=== PATIENT | female | born 1940 | race Caucasian/White ===

== ENCOUNTER 2023-11-01 15:39 | Inpatient (IN) ==
--- NOTE | 2023-11-01 16:08 | XRay Report ---
XR chest 1V portable HISTORY: 82 years-old Female weakness acute weakness COMPARISON: None TECHNIQUE: AP view of the chest FINDINGS: Cardiac silhouette is enlarged. Mild right hemidiaphragmatic elevation. No pneumothorax, pleural effu dinorah or lobar airspace consolidation. Mild nonspecific interstitial coarsening. IMPRESSION: 1. Cardiomegaly with mild nonspecific interstitial coarsening. 2. No airspace consolidation typical for pneumonia. ACT 112: Negative or not required by law. The above report was generated using voice recognition software. It may contain grammatical, syntax o r spelling errors. Electronically signed by: Zhao Mejia M.D. 11/01/2023 4:07 PM
--- NOTE | 2023-11-01 16:35 | CT Scan Report ---
CT SCAN OF THE BRAIN WITHOUT IV CONTRAST CLINICAL HISTORY: Change in mental status. COMPARISON STUDY: No priors. TECHNIQUE: Unenhanced axial CT scan of the brain is performed from the vertex to the skull base. A do se lowering technique was utilized adhering to the principles of ALARA. CT DOSE: 547.75 mGy.cm FINDINGS: Brain parenchyma: There is age-related involutional change noting moderate subcortical and periventri cular microangiopathic disease. A 5 mm hyperdense focus in the right cerebellar hemisphere likely rep resents a calcification. Hemorrhages considered unlikely. No additional findings are suspicious for h emorrhage. There is no mass effect or evidence of acute territorial ischemia by CT criteria. Berg-whi te matter differentiation is preserved. Left temporal encephalomalacia is consistent with a remote in sult. No extra-axial fluid collection is seen. Ventricles, sulci, cisterns: Prominent secondary to involutional change. Intracranial vasculature: There is atherosclerotic calcification of the cavernous carotid and vertebr al arteries. Calvarium: Unremarkable. Sinuses and mastoids: The visualized paranasal sinuses are clear. The mastoid air cells are well pneu matized. Orbits: The bony orbits are grossly intact. IMPRESSION: 1. A 5 mm hyperdense focus in the right cerebellar hemisphere likely represents a calcification. A ti ny focus of hemorrhage is considered much less likely. Correlate with any prior outside imaging studi es. If no prior studies are available consider a 12 to 24 hour follow-up examination for reassessment . 2. No additional findings are suspicious for hemorrhage. There is no mass effect or evidence of acute territorial ischemia by CT criteria. ACT 112: Negative or not required by law. Electronically signed by: James Bull M.D. 11/01/2023 4:34 PM
[2023-11-01 16:41] LABS: Basophils # (auto) 0.04 K/uL (0.00-0.20); Basophils % (auto) 0.6 %; Eosinophils # (auto) 0.07 K/uL (0.00-0.50); Eosinophils % (auto) 1.1 %; Hematocrit (blood only) 42.9 % (37.0-47.0); Hemoglobin 14.3 g/dl (12.0-16.0); Immature Granulocytes # (auto) 0.04 K/uL (0.01-0.20); Immature Granulocytes % (auto) 0.6 %; Lymphocytes # (auto) 0.87 K/uL (1.20-3.40); Lymphocytes % (auto) 13.5 %; Mean Corpuscular Hemoglobin 33.4 pg (25.0-34.0); Mean Corpuscular Hgb Conc 33.3 g/dL (32.0-36.0); Mean Corpuscular Volume 100.2 fL (80.0-100.0); Mean Platelet Volume 10.2 fL (9.4-12.4); Monocytes # (auto) 0.61 K/uL (0.11-0.59); Monocytes % (auto) 9.5 %; Neutrophils # (auto) 4.82 K/uL (1.40-6.50); Neutrophils % (auto) 74.7 %; Platelet Count 174 K/uL (130-400); RDW Coefficient of Variation 12.2 % (11.5-14.5); RDW Standard Deviation 45.4 fL (36.4-46.3); Red Blood Count 4.28 M/uL (4.20-5.40); White Blood Count 6.45 K/ul (4.8-10.8)
--- NOTE | 2023-11-01 16:49 | Emergency Department Note ---
Impression & Plan Acute confusion, Acute UTI, Hypertension, Abnormal brain CT, Hyponatremia, Hypomagnesemia ED Provider Note NAME: KIKA GOEL AGE: 82 SEX: F : 1940 ARRIVES VIA: Walk-In INFORMANT: [Patient][family] ED PROVIDER(S): [James Leahy MD] CHIEF COMPLAINT: Hypertension HISTORY OF PRESENT ILLNESS: The patient is an 82-year-old female who had her blood pressure medication lowered last week. She had the lisinopril dose reduced. A short time after, the patient began complaining of a bit of a headache and her blood pressure was noticed to be about 150 to 160 systolic. She felt dizzy and nauseated. The family noticed some confusion. There have been no respiratory complaints. No cough or congestion. No vomiting, no diarrhea. She has not had one-sided weakness. She has not noticed fever. No urinary complaints. As per the daughter at bedside, the patient does have a history of UTI and that may be the problem today. PMHx/PSHx/Social Hx: See Below PHYSICAL EXAM: GENERAL: Patient is in no acute distress. HEENT: No acute trauma, normocephalic atraumatic, mucous membranes moist, no nasal congestion. NECK: No stridor, no adenopathy, no meningismus, trachea is midline. LUNGS: Clear to auscultation bilaterally, no wheeze, no rhonchi, breath sounds equal. HEART: Normal rate. No murmurs. Irregular rhythm. ABDOMEN: Soft, nontender, no peritonitis. EXTREMITIES: No cyanosis, full range of motion of all the joints without pain or difficulty. NEUROLOGIC: Awake and alert, no acute motor or sensory deficits, no focal weakness. No speech slur or facial droop. No extremity drift. SKIN: No jaundice, no diaphoresis. DIFFERENTIAL DIAGNOSIS: UTI, intracranial bleeding, stroke, uncontrolled blood pressure, electrolyte imbalance, dehydration, among others. EMERGENCY DEPARTMENT PROCEDURES: MEDICAL DECISION MAKING: There is no leukocytosis or concerning anemia. There is a normal platelet count. Sodium and magnesium were slightly low. There was no renal failure. No concerning liver enzyme elevation. The patient appeared to be in a euthyroid state. ECG shows atrial fibrillation, no obvious ischemia. Cardiac enzyme testing x 1 was not consistent with acute cardiac injury. Urinalysis does show findings of infection. Respiratory bio fire was completely negative. Chest x- ray did not show pneumonia or CHF. Brain CT showed a potential calcification versus small bleed to the cerebellar portion of the brain. No old CT images to use for comparison. On exam, there were no focal neurologic findings. The patient was not febrile. She was mildly hypertensive. Patient received IV ceftriaxone as antibiotic therapy. She was given IV magnesium and IV saline. Patient presents with some confusion. She was found to have a UTI and this is likely the cause for her presentation. Given the patient's age, given the UTI, given the confusion, given the abnormal brain CT, further workup in the hospital was felt warranted. A repeat CT image in 12 to 24 hours was recommended by radiology. I spoke with the patient and case management, the on-call hospitalist was consulted. Prior/Outside records/notes reviewed: None ECG per my interpretation: Indication was weakness. The ECG shows atrial fibrillation with a rate of 99. There is a potential old septal infarct. There is no acute ST elevation, no PVCs. The QTc is 441. Continuous Cardiac Monitoring per my interpretation: An order was placed for continuous cardiac monitoring. The monitor shows a rate of 88 with atrial fibrillation. Imaging/x-ray results per my interpretation: Chest x-ray does not show mediastinal widening, pneumonia or pneumothorax. Chronic Medical/Social conditions affecting care: Advanced age Care/Management discussed with: Case management, the on-call hospitalist. Level of care consideration(s): After review of the information above and other included data: --I believe the patient requires escalation of care to admission DISPOSITION: Admission Past Med/Surg History Medical History Hypertension Atrial fibrillation Social History Smoking Status: Former smoker Hx Alcohol Use: Yes Alcohol type: wine Hx Substance Use: No Preferred Language: Nepalese Communication Ability: Effective Director Of Student Life Required: No Beliefs That Will Affect Care: None Current Living Situation: Family Current Living Situation Comment: Lives with daughter Other Information That Helps Us Care for You: No Feels Safe at Home: Yes Safety Concerns: Feels Safe At This Time Assistive Devices: Cane, Glasses and Hearing Aid - Bilateral Assistive Devices Comment: doesn't wear hearing aids Allergies Allergies Allergy/AdvReac Type Severity Reaction Status Date / Time Sulfa (Sulfonamide Allergy Mild Unknown Verified 11/01/23 23:24 Antibiotics) Penicillins AdvReac Hives Verified 11/01/23 23:21 Home Meds Home Medications Medication Instructions Recorded Confirmed apixaban 5 mg tablet (Eliquis) 5 mg PO BID 11/01/23 11/01/23 conjugated estrogens 0.625 mg 0.625 mg PO DAILY 11/01/23 11/01/23 tablet (Premarin) levothyroxine 75 mcg tablet 75 mcg PO DAILY 11/01/23 11/01/23 lisinopril 20 mg tablet 20 mg PO QAM 11/01/23 11/01/23 metoprolol succinate 100 mg 100 mg PO BID 11/01/23 11/01/23 tablet,extended release 24 hr spironolactone 25 mg tablet 12.5 mg PO DAILY 11/01/23 11/01/23 Results & Data (ED) Vital Signs Vital Signs - 24 hr 11/01/23 15:47 11/01/23 16:11 11/01/23 16:11 Temperature 36.5 C Temperature Source Temporal Artery Scan Pulse Rate 112 H 94 H Pulse Rate [Apical] 94 H Pulse Rate from SpO2 Sensor Pulse Rhythm Regular Regular Pulse Rhythm [Apical] Regular Pulse Strength Normal Respiratory Rate 18 20 20 Respiratory Effort / Characteristics Non-Labored Non-Labored Respiratory Depth Normal Normal Respiratory Pattern Regular Regular Blood Pressure 149/93 H Blood Pressure [Right Arm] 142/88 H Blood Pressure Mean 111 Blood Pressure Mean [Right Arm] 106 Blood Pressure Position Sitting Blood Pressure Position [Right Arm] Sitting Pulse Oximetry 99 97 97 Oxygen Delivery Method Room Air Room Air Room Air Sepsis New/Unexplained Change in Mental Status No Sepsis Action Taken by Nursing No Action Required 11/01/23 16:28 11/01/23 16:28 11/01/23 16:30 Temperature Temperature Source Pulse Rate 88 88 Pulse Rate [Apical] Pulse Rate from SpO2 Sensor 91 H Pulse Rhythm Pulse Rhythm [Apical] Pulse Strength Respiratory Rate 18 Respiratory Effort / Characteristics Respiratory Depth Respiratory Pattern Blood Pressure 148/77 H Blood Pressure [Right Arm] Blood Pressure Mean 93 Blood Pressure Mean [Right Arm] Blood Pressure Position Blood Pressure Position [Right Arm] Pulse Oximetry 98 Oxygen Delivery Method Sepsis New/Unexplained Change in Mental Status Sepsis Action Taken by Nursing 11/01/23 16:30 11/01/23 16:40 11/01/23 16:50 Temperature Temperature Source Pulse Rate 88 92 H 96 H Pulse Rate [Apical] Pulse Rate from SpO2 Sensor 92 H 95 H 92 H Pulse Rhythm Pulse Rhythm [Apical] Pulse Strength Respiratory Rate 20 22 17 Respiratory Effort / Characteristics Respiratory Depth Respiratory Pattern Blood Pressure Blood Pressure [Right Arm] Blood Pressure Mean Blood Pressure Mean [Right Arm] Blood Pressure Position Blood Pressure Position [Right Arm] Pulse Oximetry 97 98 98 Oxygen Delivery Method Sepsis New/Unexplained Change in Mental Status Sepsis Action Taken by Nursing 11/01/23 17:00 11/01/23 17:10 11/01/23 17:20 Temperature Temperature Source Pulse Rate 90 87 99 H Pulse Rate [Apical] Pulse Rate from SpO2 Sensor 100 H 96 H 98 H Pulse Rhythm Pulse Rhythm [Apical] Pulse Strength Respiratory Rate 24 34 H 18 Respiratory Effort / Characteristics Respiratory Depth Respiratory Pattern Blood Pressure Blood Pressure [Right Arm] Blood Pressure Mean Blood Pressure Mean [Right Arm] Blood Pressure Position Blood Pressure Position [Right Arm] Pulse Oximetry 82 L 92 82 L Oxygen Delivery Method Sepsis New/Unexplained Change in Mental Status Sepsis Action Taken by Nursing 11/01/23 17:30 11/01/23 17:40 11/01/23 17:50 Temperature Temperature Source Pulse Rate 87 105 H 99 H Pulse Rate [Apical] Pulse Rate from SpO2 Sensor 87 101 H Pulse Rhythm Pulse Rhythm [Apical] Pulse Strength Respiratory Rate 23 26 H 24 Respiratory Effort / Characteristics Respiratory Depth Respiratory Pattern Blood Pressure Blood Pressure [Right Arm] Blood Pressure Mean Blood Pressure Mean [Right Arm] Blood Pressure Position Blood Pressure Position [Right Arm] Pulse Oximetry 78 L 97 Oxygen Delivery Method Sepsis New/Unexplained Change in Mental Status Sepsis Action Taken by Nursing 11/01/23 18:00 11/01/23 18:10 11/01/23 18:20 Temperature Temperature Source Pulse Rate 101 H 98 H 91 H Pulse Rate [Apical] Pulse Rate from SpO2 Sensor 107 H 103 H 95 H Pulse Rhythm Pulse Rhythm [Apical] Pulse Strength Respiratory Rate 27 H 21 18 Respiratory Effort / Characteristics Respiratory Depth Respiratory Pattern Blood Pressure Blood Pressure [Right Arm] Blood Pressure Mean Blood Pressure Mean [Right Arm] Blood Pressure Position Blood Pressure Position [Right Arm] Pulse Oximetry 99 97 98 Oxygen Delivery Method Sepsis New/Unexplained Change in Mental Status Sepsis Action Taken by Assisted Medications Current Medication List: was personally reviewed by me Laboratory Data Attestation: I reviewed the patient's lab results. 11/01/23 16:05 11/01/23 16:05 Lab Results 11/01/23 11/01/23 Range/Units 16:03 16:05 WBC 6.45 (4.8-10.8) K/ul RBC 4.28 (4.20-5.40) M/uL Hgb 14.3 (12.0-16.0) g/dl Hct 42.9 (37.0-47.0) % MCV 100.2 H (80.0-100.0) fL MCH 33.4 (25.0-34.0) pg MCHC 33.3 (32.0-36.0) g/dL RDW Std Deviation 45.4 (36.4-46.3) fL RDW Coeff of Ethan 12.2 (11.5-14.5) % Plt Count 174 (130-400) K/uL MPV 10.2 (9.4-12.4) fL Immature Gran % (Auto) 0.6 % Neut % (Auto) 74.7 % Lymph % (Auto) 13.5 % Andrew % (Auto) 9.5 % Eos % (Auto) 1.1 % Baso % (Auto) 0.6 % Neut # (Auto) 4.82 (1.40-6.50) K/uL Lymph # (Auto) 0.87 L (1.20-3.40) K/uL Andrew # (Auto) 0.61 H (0.11-0.59) K/uL Eos # (Auto) 0.07 (0.00-0.50) K/uL Baso # (Auto) 0.04 (0.00-0.20) K/uL Immature Gran # (Auto) 0.04 (0.01-0.20) K/uL PT 11.6 (9.0-12.0) Seconds INR 1.1 (0.9-1.1) Sodium 130 L (136-145) mmol/L Potassium 4.8 (3.5-5.1) mmol/L Chloride 97 L (98-107) mmol/L Carbon Dioxide 26 (21-32) mmol/L Anion Gap 7 (3-11) BUN 21 (6-23) mg/dl Creatinine 1.16 (0.6-1.2) mg/dl Est Cr Clr Drug Dosing 37.6 ml/min Est GFR ( Amer) 50.4 ml/min Est GFR (Non-Af Amer) 43.5 ml/min BUN/Creatinine Ratio 18.1 (10-20) Glucose 97 (70-99(Fasting)) mg/dl Calcium 8.9 (8.6-10.3) mg/dl Magnesium 1.6 L (1.7-2.4) mg/dl Total Bilirubin 0.6 (0.2-1.0) mg/dl AST 20 (13-39) U/L ALT 14 (7-52) U/L Alkaline Phosphatase 32 L (34-104) U/L Troponin I High Sens 4.2 (0-14) pg/ml Total Protein 7.7 (6.0-8.3) gm/dl Albumin 4.2 (3.4-5.0) gm/dl Globulin 3.5 (2.5-4.0) gm/dl Albumin/Globulin Ratio 1.2 (0.9-2) TSH 3.548 (0.300-4.500) uIu/ml Urine Color Yellow Urine Appearance Cloudy A (Clear) Urine pH 6.0 (4.5-7.5) Ur Specific Jet 1.019 (1.000-1.030) Urine Protein Negative (Negative) Urine Glucose (UA) Negative (Negative) Urine Ketones Trace H (Negative) Urine Blood Trace H (Negative) Urine Nitrite Positive A (Negative) Urine Bilirubin Negative (Negative) Urine Urobilinogen Negative (Negative) Ur Leukocyte Esterase 1+ H (Negative) Urine WBC (Auto) >50 H (0-5) /hpf Urine RBC (Auto) 3-5 H (0-2) /hpf U Hyaline Cast (Auto) 0-2 (0-2) /lpf U Epithel Cells (Auto) 3-5 H (0-2) /hpf Urine Bacteria (Auto) 4+ H (None Seen) Adenovirus (PCR) Not Detected (NotDetected) B. pertussis DNA (PCR) Not Detected (NotDetected) B.parapertussis DNA PCR Not Detected (NotDetected) C. pneumoniae DNA (PCR) Not Detected (NotDetected) Coronavirus OC43 (PCR) Not Detected (NotDetected) Coronavirus HKU1 (PCR) Not Detected (NotDetected) Coronavirus 229E (PCR) Not Detected (NotDetected) SARS-CoV-2 (PCR) Not Detected (NotDetected) Coronavirus NL63 (PCR) Not Detected (NotDetected) Human Metapneumovir PCR Not Detected (NotDetected) Influenza Type A (PCR) Not Detected (NotDetected) Influenza Type B (PCR) Not Detected (NotDetected) M. pneumoniae (PCR) Not Detected (NotDetected) Parainfluenza 1 (PCR) Not Detected (NotDetected) Parainfluenza 2 (PCR) Not Detected (NotDetected) Parainfluenza 3 (PCR) Not Detected (NotDetected) Parainfluenza 4 (PCR) Not Detected (NotDetected) RSV (PCR) Not Detected (NotDetected) Entero/Rhino (PCR) Not Detected (NotDetected) Administered Medications Acetaminophen (Acetaminophen 325 Mg Tab) 650 mg PO Q6H PRN PRN Reason: Pain or Fever Stop: 12/01/23 23:01 Last Admin: 11/01/23 23:43 Dose: 650 mg Documented By: LYNN Cetirizine HCl (Cetirizine Hcl 10 Mg Tablet) 10 mg PO HS BARBRA Stop: 12/01/23 23:29 Last Admin: 11/01/23 23:43 Dose: 10 mg Documented By: LYNN Metoprolol Succinate (Metoprolol Succ 50mg Ext Rel Tab) 100 mg PO BID BARBRA Stop: 12/01/23 20:59 Last Admin: 11/01/23 22:57 Dose: 100 mg Documented By: LYNN Discontinued Medications Sodium Chloride (Nss) 500 mls @ 999 mls/hr IV .Q31M ONE Stop: 11/01/23 17:13 Last Infusion: 11/01/23 18:04 Dose: Infused Documented By: Admin: 11/01/23 16:53 Dose: 999 mls/hr Documented By: LAYNE Ceftriaxone Sodium (Rocephin) 2,000 mg in 50 mls @ 100 mls/hr IV NOW STA Stop: 11/01/23 17:54 Last Infusion: 11/01/23 19:46 Dose: Infused Documented By: Admin: 11/01/23 18:02 Dose: 100 mls/hr Documented By: LAYNE Magnesium Sulfate/Dextrose (Magnesium Sulfate / D5w) 1 gm in 100 mls @ 100 mls/hr IV NOW STA Stop: 11/01/23 18:24 Last Infusion: 11/01/23 19:46 Dose: Infused Documented By: Admin: 11/01/23 18:27 Dose: 100 mls/hr Documented By: LAYNE Imaging Data Radiologist's Impression: Chest X-Ray 11/01/23 15:54 XR chest 1V portable HISTORY: 82 years-old Female weakness acute weakness COMPARISON: None TECHNIQUE: AP view of the chest FINDINGS: Cardiac silhouette is enlarged. Mild right hemidiaphragmatic elevation. No pneumothorax, pleural effusion or lobar airspace consolidation. Mild nonspecific interstitial coarsening. IMPRESSION: 1. Cardiomegaly with mild nonspecific interstitial coarsening. 2. No airspace consolidation typical for pneumonia. ACT 112: Negative or not required by law. The above report was generated using voice recognition software. It may contain grammatical, syntax or spelling errors. Electronically signed by: Zhao Mejia M.D. 11/01/2023 4:[address] 11/01/23 15:54 CT SCAN OF THE BRAIN WITHOUT IV CONTRAST CLINICAL HISTORY: Change in mental status. COMPARISON STUDY: No priors. TECHNIQUE: Unenhanced axial CT scan of the brain is performed from the vertex to the skull base. A dose lowering technique was utilized adhering to the principles of ALARA. CT DOSE: 547.75 mGy.cm FINDINGS: Brain parenchyma: There is age-related involutional change noting moderate subcortical and periventricular microangiopathic disease. A 5 mm hyperdense focus in the right cerebellar hemisphere likely represents a calcification. Hemorrhages considered unlikely. No additional findings are suspicious for hemorrhage. There is no mass effect or evidence of acute territorial ischemia by CT criteria. Berg-white matter differentiation is preserved. Left temporal encephalomalacia is consistent with a remote insult. No extra-axial fluid collection is seen. Ventricles, sulci, cisterns: Prominent secondary to involutional change. Intracranial vasculature: There is atherosclerotic calcification of the cavernous carotid and vertebral arteries. Calvarium: Unremarkable. Sinuses and mastoids: The visualized paranasal sinuses are clear. The mastoid air cells are well pneumatized. Orbits: The bony orbits are grossly intact. IMPRESSION: 1. A 5 mm hyperdense focus in the right cerebellar hemisphere likely represents a calcification. A tiny focus of hemorrhage is considered much less likely. Correlate with any prior outside imaging studies. If no prior studies are available consider a 12 to 24 hour follow-up examination for reassessment. 2. No additional findings are suspicious for hemorrhage. There is no mass effect or evidence of acute territorial ischemia by CT criteria. ACT 112: Negative or not required by law. Electronically signed by: James Bull M.D. 11/01/2023 4:34 PM Discharge Plan Visit Data Chief Complaint: Hypertension Stated Complaint: CONFUSION, INCREASED BP, INCREASED HR, ACHES ED Provider: James Leahy Discharge Problem: Acute confusion, Acute UTI, Hypertension, Abnormal brain CT, Hyponatremia, Hypomagnesemia Patient Disposition: Admitted As Inpatient Condition: Fair Discharge Instructions Interventions: ED Discharge Assessment Last Done: 11/01/23 20:23 Discharge Problem: Hypertension Qualifiers: Hypertension type: unspecified Qualified Code(s): I10 - Essential (primary) hypertension
[2023-11-01] MEDS: SODIUM CHLORIDE 0.9% 500 ML IV ONE (16:53)
[2023-11-01 17:08] LABS: Albumin Globulin Ratio 1.2 (0.9-2); Albumin Level 4.2 gm/dl (3.4-5.0); BUN Creatinine Ratio 18.1 (10-20); Bilirubin,Total 0.6 mg/dl (0.2-1.0); Calcium 8.9 mg/dl (8.6-10.3); Creatinine Clr Calc Pharmacy 37.6 ml/min; Est GFR (African American) 50.4 ml/min; Est GFR (Non-African American) 43.5 ml/min; Globulin 3.5 gm/dl (2.5-4.0); Magnesium 1.6 mg/dl (1.7-2.4); Potassium 4.8 mmol/L (3.5-5.1); Total Protein 7.7 gm/dl (6.0-8.3)
[2023-11-01 17:08] LABS: Appearance Urine Cloudy (Clear); Bacteria Urine Automated 4+ (None Seen); Bilirubin Urine Negative (Negative); Blood Urine Trace (Negative); Cast Urine Automated 0-2 /lpf (0-2); Color Urine Yellow; Glucose Urine UA Negative (Negative); Ketones Urine Trace (Negative); Leukocyte Esterase Urine 1+ (Negative); Nitrite Urine Positive (Negative); Protein Urine Negative (Negative); Specific Gravity Urine 1.019 (1.000-1.030); Urobilinogen Urine Negative (Negative); WBC Urine Automated >50 /hpf (0-5)
[2023-11-01 17:12] LABS: Troponin I High Sensitivity 4.2 pg/ml (0-14)
[2023-11-01 17:22] LABS: Thyroid Stimulating Hormone 3.548 uIu/ml (0.300-4.500)
[2023-11-01 17:27] LABS: Adenovirus PCR Not Detected (NotDetected); Bordetella parapertussis PCR Not Detected (NotDetected); Bordetella pertussis PCR Not Detected (NotDetected); Chlamydia pneumoniae PCR Not Detected (NotDetected); Coronavirus 229E PCR Not Detected (NotDetected); Coronavirus CoV-2 (COVID19)PCR Not Detected (NotDetected); Coronavirus HKU1 PCR Not Detected (NotDetected); Coronavirus NL63 PCR Not Detected (NotDetected); Coronavirus OC43PCR Not Detected (NotDetected); Human Metapneumovirus PCR Not Detected (NotDetected); Influenza A PCR Not Detected (NotDetected); Influenza B PCR Not Detected (NotDetected); Mycoplasma pneumoniae PCR Not Detected (NotDetected); Parainfluenza Virus 1 PCR Not Detected (NotDetected); Parainfluenza Virus 2 PCR Not Detected (NotDetected); Parainfluenza Virus 3 PCR Not Detected (NotDetected); Parainfluenza Virus 4 PCR Not Detected (NotDetected); Respiratory Syncytial VirusPCR Not Detected (NotDetected); Rhinovirus/Enterovirus PCR Not Detected (NotDetected)
[2023-11-01] MEDS: cefTRIAXone SODIUM 2,000 MG/50 ML BAG IV STA (18:02)
--- NOTE | 2023-11-01 18:25 | History & Physical Report ---
Date of Service November 01, 2023 Assessment & Plan (1) Change in mental status: Plan: Noted to be since yesterday Does not have the condition anymore CT scan did show 5 mm hypodensity in the cerebellar hemisphere on the right side Doubt any bleeding but was advised to have repeat the scan within 12 to 24 hours She does not have any neurodeficit on examination Has been on Coumadin will check INR (2) Acute UTI: Plan: Noted to have acute UTI on UA examination Urine culture is 17 Started with intravenous ceftriaxone Advised to drink more fluid (3) Atrial fibrillation: Plan: Rate is on the higher side Will continue current medications (4) Aortic root enlargement: Plan: History of aortic root enlargement Blood pressure should be controlled and which is a little high on the upper side at 148/77 (5) Hypertension: Plan: Blood pressure noted to be low at doctor's office Lisinopril dose was decreased to 20 mg Will monitor blood pressure (6) Chronic hyponatremia: Plan: Sodium level noted to be 130 Will monitor DVT prophylaxis On Eliquis-will hold for tonight CODE STATUS DNR/DNI-discussed with the patient and the family members History of Present Illness Chief Complaint: Not feeling well since and confusion since last evening Primary Care Provider: Rin Acosta MD She is an 81-year-old female with significant past medical history atrial fibrillation on Coumadin, aortic root enlargement, hypertension, hypothyroidism and chronic hyponatremia apparently has been complaining of not feeling well since last. She has had occasional dizziness with ambulation and also sweaty at times but no documented temperature and did not have any problem with urine or bowel habit. She has noted to be confused last evening and after discu ssion with the primary care doctor's office she was advised to come to the emergency room. Denies any numbness or tingling in the extremities, no visual symptoms, no weakness involving any side of the body and no history of fall or trauma. UA examination showed infection and she was admitted for continuation of care. Allergies Allergy/AdvReac Type Severity Reaction Status Date / Time Sulfa (Sulfonamide Allergy Mild Unknown Verified 11/01/23 23:24 Antibiotics) Penicillins AdvReac Hives Verified 11/01/23 23:21 Home Medications Medication Instructions Recorded Confirmed Type apixaban 5 mg tablet (Eliquis) 5 mg PO BID 11/01/23 11/01/23 History conjugated estrogens 0.625 mg 0.625 mg PO DAILY 11/01/23 11/01/23 History tablet (Premarin) levothyroxine 75 mcg tablet 75 mcg PO DAILY 11/01/23 11/01/23 History lisinopril 20 mg tablet 20 mg PO QAM 11/01/23 11/01/23 History metoprolol succinate 100 mg 100 mg PO BID 11/01/23 11/01/23 History tablet,extended release 24 hr spironolactone 25 mg tablet 12.5 mg PO DAILY 11/01/23 11/01/23 History Past Med/Surg History Medical History Hypertension Atrial fibrillation Social History Smoking Status: Former smoker Hx Alcohol Use: Yes Alcohol type: wine Hx Substance Use: No Preferred Language: Gabonese Communication Ability: Effective Pipelines Supervisor Required: No Beliefs That Will Affect Care: None Current Living Situation: Family Current Living Situation Comment: Lives with daughter Other Information That Helps Us Care for You: No Feels Safe at Home: Yes Safety Concerns: Feels Safe At This Time Assistive Devices: Cane, Glasses and Stair Lift Assistive Devices Comment: doesn't wear hearing aids Review of Systems Review of Systems: All systems reviewed and are unremarkable except as mentioned below Physical Exam Physical Exam: Lying in bed without any acute distress Constitutional: well developed, well nourished, + ill appearing and + obese Eyes: PERRL, conjunctivae normal, anicteric sclerae ENMT: external ear and nose normal, oropharynx normal Neck: trachea midline, no thyromegaly Respiratory: no respiratory distress Auscultation: lungs clear to auscultation bilaterally Cardiovascular: Rate/Rhythm: regular rate and regular rhythm; not tachycardic Heart Sounds: normal S1, normal S2 and + murmur Extremities: no edema Gastrointestinal (Abdomen): Inspection/Auscultation: normal bowel sounds; abdomen not distended Percussion/Palpation: abdomen nontender Musculoskeletal: No acute arthritis involving any of the joint Neurologic: normal touch/pain/proprioception and moves all extremities; no focal motor deficits and not confused Lymphatic: no cervical or axillary lymphadenopathy Results & Data Results & Data Vital Signs (Past 12 Hours) Vital Signs Temp Pulse Pulse Resp BP BP Pulse Ox 11/01/23 18:10 98 H 21 97 11/01/23 18:00 101 H 27 H 99 11/01/23 17:50 99 H 24 97 11/01/23 17:40 105 H 26 H 11/01/23 17:30 87 23 78 L 11/01/23 17:20 99 H 18 82 L 11/01/23 17:10 87 34 H 92 11/01/23 17:00 90 24 82 L 11/01/23 16:50 96 H 17 98 11/01/23 16:40 92 H 22 98 11/01/23 16:30 88 20 97 11/01/23 16:30 88 11/01/23 16:28 148/77 H 11/01/23 16:28 88 18 98 11/01/23 16:11 94 H 20 97 11/01/23 16:11 94 H 20 142/88 H 97 11/01/23 15:47 36.5 C 112 H 18 149/93 H 99 O2 Del Method 11/01/23 18:10 11/01/23 18:00 11/01/23 17:50 11/01/23 17:40 11/01/23 17:30 11/01/23 17:20 11/01/23 17:10 11/01/23 17:00 11/01/23 16:50 11/01/23 16:40 11/01/23 16:30 11/01/23 16:30 11/01/23 16:28 11/01/23 16:28 11/01/23 16:11 Room Air 11/01/23 16:11 Room Air 11/01/23 15:47 Room Air Laboratory Results Short CBC 11/01/23 Range/Units 16:05 WBC 6.45 (4.8-10.8) K/ul Hgb 14.3 (12.0-16.0) g/dl Hct 42.9 (37.0-47.0) % Plt Count 174 (130-400) K/uL BMP 11/01/23 16:05 Sodium 130 L Potassium 4.8 Chloride 97 L Carbon Dioxide 26 BUN 21 Creatinine 1.16 Glucose 97 Calcium 8.9 Liver Function 11/01/23 Range/Units 16:05 Total Bilirubin 0.6 (0.2-1.0) mg/dl AST 20 (13-39) U/L ALT 14 (7-52) U/L Alkaline Phosphatase 32 L (34-104) U/L Albumin 4.2 (3.4-5.0) gm/dl Urine 11/01/23 Range/Units 16:03 Urine Color Yellow Urine Appearance Cloudy A (Clear) Urine pH 6.0 (4.5-7.5) Ur Specific Sod 1.019 (1.000-1.030) Urine Protein Negative (Negative) Urine Glucose (UA) Negative (Negative) Medications Administered Current Inpatient Medications Magnesium Sulfate/Dextrose (Magnesium Sulfate / D5w) 1 gm in 100 mls @ 100 mls/hr IV NOW STA Stop: 11/01/23 18:24
[2023-11-01] MEDS: MAGNESIUM SULFATE / D5W 1 GM/100 ML BAG IV STA (18:27)
[2023-11-01 18:49] LABS: INR 1.1 (0.9-1.1); Prothrombin Time 11.6 Seconds (9.0-12.0)
[2023-11-01] MEDS: METOPROLOL SUCC 50MG EXT REL TAB PO SCH (22:57)
[2023-11-01] MEDS ORDERED: Patient's ALLERGY Info needs ENTERED STA (23:11)
[2023-11-01] MEDS: ACETAMINOPHEN 325 MG TAB PO PRN (23:43)
[2023-11-01] MEDS: CETIRIZINE HCL 10 MG TABLET PO SCH (23:43)
[2023-11-02] MEDS: LEVOTHYROXINE SODIUM 75 MCG TABLET PO SCH (05:51)
--- OUTSIDE RECORDS SUMMARY | 2023-11-02 06:03 | External Medical Summary | Summary of Care ---
Author Name Unknown Organization [facility] Address [address] [facility] [place] [address] Phone [phone] Care Team Providers Care Veterinary Nurse Name Role Phone Rin Acosta MD Primary Care Provider Reason for Visit * Reason Onset Date Comments Health Maintenance 10/29/2023 Encounter Details Date Type Department Care Team (Late st Contact Info) Description 10/29/2023 Telephone Family Practice [facility] [address] [place] [address] Rin Acosta MD [address] [place] [address] Health Maintenance Allergies Active Allergy Reactions Criticality Noted Date Comments Penicillins 12/08/1999 hives Sulfa Antibiotics 12/08/1999 rash documented as of this encounter (statuses as of 10/29/2023) Medications Medication Sig Dispensed Refills Start Date End Date Status Eliquis 5 MG Oral Tablet Take 1 Tablet by mouth in the morning and 1 Tablet before bedtime. 0 08/15/2023 Active Metoprolol Succinate ER 100 MG Oral Tablet Extended Release 24 Hour (toPROL XL) TAKE 1 TABLET BY MOUTH IN THE MORNING AND 1 TABLET IN THE EVENING 0 08/28/2023 Active Spironolactone 25 MG Oral Tablet (Aldactone) Take 0.5 Tablets by mouth in the morning. 0 09/21/2023 Active Estrogens Conjugated 0.625 MG Oral Tablet (Premarin)Indications: Post-menopause on HRT (hormone replacement therapy) Take 1 Tablet by mouth in the morning. 90 Tablet 3 10/01/2023 Active Cetirizine HCl 10 MG Oral Tablet (ZyrTEC Allergy) Take 1 Tablet by mouth in the morning. 0 Active Levothyroxine Sodium 75 MCG Oral Tablet (Synthroid)Indications :Acquired hypothyroidism Take 1 Tablet by mouth in the morning. (at least 30 min prior to breakfast or other meds). 90 Tablet 3 10/01/2023 Active Lisinopril 20 MG Oral Tablet (Prinivil)Indications: HTN, goal below 130/80 Take 1 Tablet by mouth in the morning. 30 Tablet 5 10/25/2023 Active documented as of this encounter (statuses as of 10/29/2023) Active Problems Problem Noted Date Diagnosed Date Acquired hypothyroidism 10/01/2023 Atrial fibrillation 10/01/2023 Post-menopause on HRT (hormone replacement thera py) 10/01/2023 Aortic root enlargement 10/01/2023 HTN, goal below 130/80 10/01/2023 Hyponatremia 10/01/2023 Enthesopathy of hip 01/28/2009 ADVANCE DIRECTIVE INFORMATION 11/16/2006 documented as of this encounter (statuses as of 10/29/2023) Immunizations No known immunizationsdocumented as of this encounter Social History Tobacco Use Types Packs/Day Years Used Date Smoking Tobacco: Former Smokeless Tobacco: Never Alcohol Use Standard Drinks/Week Comments Yes 0 (1 standard drink = 0.6 oz pur e alcohol) Sex and Gender Information Value Date Recorded Sex Assigned at Female 09/22/2023 4:40 PM EDT Gender Identity Female 09/22/2023 4:40 PM EDT Sexual Orientation Straight 09/22/2023 4: 53 PM EDT Job Start Date Occupation Industry Not on file Not on file Not on file documented as of this encounter Miscellaneous Notes * Telephone Encounter - Amarilis Lipscomb LPN - 10/29/2023 10:35 AM EDT Care Gaps Comprehensive Care Outreach Last Office/Telemedicine Visit: 10/01/2023 (in office), Visit date not found (telemedicine) Next Office Visit: 10/09/2024 Hemoglobin AIC Results: No results found for: "HEMOGLOBIN A1C" BP Readings from Last 1 Encounters: 10/01/23 104/72 Reviewed Health Maintenance below: Health Maintenance Topic Date Due Depression Screening Never done Albumin/Creatinine Ratio Never done DTaP,Tdap,and Td Vaccines (1 - Tdap) Never done Zoster Vaccines (1 of 2) Never done Pneumococcal Vaccine: 65+ Years (1 of 1 - PCV) Never done DXA Scan 02/28/2010 Just established getting records Care Gap Outreach Action Taken: Outreach not indicated documented in this encounter Plan of Treatment Upcoming Encounters Date Type Department Care Team (Late st Contact Info) Description 10/09/2024 1:40 PM EDT Office Visit Family [facility] [address] [place] [address] Rin Acosta MD [address] [place] [address] Health Maintenance Due Date Last Done Comments Depression Screening 1952 Albumin/Creatinine Ratio 11/07/1957 DTaP,Tdap,and Td Vaccines (1 - Tdap) 11/07/1958 Zoster Vaccines (1 of 2) 11/07/1989 Pneumococcal Vaccine: 65+ Years (1 of 1 - PCV) 11/07/2004 DXA Scan 02/28/2010 02/28/2003 COVID-19 Vaccine ( - 2022- season) 2023 Influenza Vaccine (FLU shot) (Season Ended) 2024 GFR 10/21/2024 10/22/2023, 08/0 12/2006, 02/05/1997, Additional history exists TSH 10/21/2024 10/22/2023, 12/03, 07/13/1997, Additional history exists GARDASIL-HPV IMMUNIZATION SERIES Aged Out No longer eligible based on patient's age to complete this topic Hepatitis B Aged Out No longer eligi ble based on patient's age to complete this topic MENINGOCOCCAL (MENACTRA/MENVEO) Aged Out No longer eligible based on patient's age to complete this topic documented as of this encounter Medical Devices Not on filedocumented as of this encounter Care Teams Veterinary Nurse Relationship Specialty Start Date End Date Rin Acosta MD [address] [place] [address] PCP - General Internal Medicine 10/01/23 documented as of this encounter
--- OUTSIDE RECORDS SUMMARY | 2023-11-02 06:04 | External Medical Summary | Summary of Care ---
Author Name Unknown Organization [facility] Address [address] [facility] [place] [address] Phone [phone] Care Team Providers Care Management Developer Name Role Phone Rin Acosta MD Primary Care Provider Reason for Visit * Reason Comments Outpatient Testing Encounter Details Date Type Department Care Team (Late st Contact Info) Description 10/22/2023 11:40 AM EDT Laboratory Laboratory, [facility] [address] [facility] [place] [phone] [facility] [address] [facility] [place] [address] Acquired hypothyroidism; Hyponatremia Allergies Active Allergy Reactions Criticality Noted Date Comments Penicillins 12/08/1999 hives Sulfa Antibiotics 12/08/1999 rash documented as of this encounter (statuses as of 10/22/2023) Medications Medication Sig Dispensed Refills Start Date End Date Status Eliquis 5 MG Oral Tablet Take 1 Tablet by mouth in the morning and 1 Tablet before bedtime. 0 08/15/2023 Active Lisinopril 40 MG Oral Tablet Take 1 Tablet by mouth in the morning. 0 09/21/2023 Active Metoprolol Succinate ER 100 MG Oral [...] other meds). 90 Tablet 3 10/01/2023 Active documented as of this encounter (statuses as of 10/22/2023) Active Problems Problem Noted Date Diagnosed Date Acquired hypothyroidism 10/01/2023 Atrial fibrillation 10/01/2023 Post-menopause on HRT (hormone replacement thera py) 10/01/2023 Aortic root enlargement 10/01/2023 HTN, goal below 130/80 10/01/2023 Hyponatremia 10/01/2023 Enthesopathy of hip 01/28/2009 ADVANCE DIRECTIVE INFORMATION 11/16/2006 documented as of this encounter (statuses as of 10/22/2023) Immunizations No known immunizationsdocumented as of this [...] on file documented as of this encounter Plan of Treatment Upcoming Encounters Date Type Department Care Team (Late st Contact Info) Description 10/09/2024 1:40 PM EDT Office Visit Family [facility] [address] [address] Rin Acosta MD [address] [place] [address] Pending Results Name Type Priority Associated Diagnoses Date /Time TSH WITH FREE T4 IF INDICATED Lab Routine Acquired hypothyroidism 10/22/2023 11:20 AM EDT COMPREHENSIVE METABOLIC PANEL Lab Routine Hyponatremia 10/22/2023 11:20 AM EDT Health Maintenance Due Date Last Done Comments Depression Screening 1952 Albumin/Creatinine Ratio 11/07/1957 DTaP,Tdap,and Td Vaccines (1 - Tdap) 11/07/1958 Zoster Vaccines (1 of 2) 11/07/1989 TSH 12/14/2000 12/15/1999, 03/1998, 04/06/1997, Additional history exists Pneumococcal Vaccine: 65+ Years (1 of 1 - PCV) 11/07/2004 GFR 02/08/2008 02/07/2007, 10/1996, 10/18/1996, Additional history exists DXA Scan 02/28/2010 02/28/2003 COVID-19 Vaccine ( - season) 2023 Influenza Vaccine (FLU shot) (Season Ended) 2024 GARDASIL-HPV IMMUNIZATION SERIES Aged Out No longer eligible based on patient's age to complete this topic Hepatitis B Aged Out No longer eligi ble based on patient's age to complete this topic MENINGOCOCCAL (MENACTRA/MENVEO) Aged Out No longer eligible based on patient's age to complete this topic documented as of this encounter Medical Devices Not on filedocumented as of this encounter Visit Diagnoses Diagnosis Acquired hypothyroidism Unspecified hypothyroidism Hyponatremia Hyposmolality and/or hyponatremia documented in this encounter Care Teams Management Developer Relationship Specialty Start Date End Date Rin Acosta MD [address] [facility] [place] [address] PCP - General Internal Medicine 10/01/23 documented as of this encounter
--- OUTSIDE RECORDS SUMMARY | 2023-11-02 06:04 | External Medical Summary ---
Author Name Unknown Address Unknown Organization [id number]:[facility] [address] [place] [address] Laboratory Report Ordering Provider Test Date Status LOVE YIN 10/22/2023 11:20:27 Final Observation Date Value Abnormality Reference (Units ) Status T4, Free 10/22/2023 11:20:27 1.2 0.9-1.7 (n g/dL) Final Performing Location [facility] [address] [place] [address]
--- OUTSIDE RECORDS SUMMARY | 2023-11-02 06:04 | External Medical Summary | Summary of Care ---
Author Name Unknown Organization [facility] Address [address] [facility] [place] [address] Phone [phone] Care Team Providers Care Business Operations Coordinator Name Role Phone Rin Acosta MD Primary Care Provider Encounter Details Date Type Department Care Team (Late st Contact Info) Description 10/24/2023 Telephone Family Practice [facility] [address] [place] [address] Rin Acosta MD [address] [place] [address] Allergies Active Allergy Reactions Criticality Noted Date Comments Penicillins 12/08/1999 hives Sulfa Antibiotics 12/08/1999 rash documented as of this encounter (statuses as of 10/25/2023) Medications Medication Sig Dispensed Refills Start Date [...] Active Estrogens Conjugated 0.625 MG Oral Tablet (Premarin)Indicatio ns:Post-menopause on HRT (hormone replacement therapy) Take 1 Tablet by mouth in the morning. 90 Tablet 3 10/01/2023 Active Cetirizine HCl 10 MG Oral Tablet (ZyrTEC Allergy) Take 1 Tablet by mouth in the morning. 0 Active Levothyroxine Sodium 75 MCG Oral Tablet (Synthroid)Indicati ons:Acquired hypothyroidism Take 1 Tablet by mouth in the morning. (at least 30 min prior to breakfast or other meds). 90 Tablet 3 10/01/2023 Active Lisinopril 20 MG Oral Tablet (Prinivil)Indicatio ns:HTN, goal below 130/80 Take 1 Tablet by mouth in the morning. 30 Tablet 5 10/25/2023 Active Lisinopril 40 MG Oral Tablet Take 1 Tablet by mouth in the morning. 0 09/21/2023 Discontinued documented as of this encounter (statuses as of 10/25/2023) Active Problems Problem Noted Date Diagnosed Date Acquired hypothyroidism 10/01/2023 Atrial fibrillation 10/01/2023 Post-menopause on HRT (hormone replacement thera py) 10/01/2023 Aortic root enlargement 10/01/2023 HTN, goal below 130/80 10/01/2023 Hyponatremia 10/01/2023 Enthesopathy of hip 01/28/2009 ADVANCE DIRECTIVE INFORMATION 11/16/2006 documented as of this encounter (statuses as of 10/25/2023) Immunizations No known immunizationsdocumented as of this [...] 10/09/2024 1:40 PM EDT Office Visit Family [facility] [address] [place] [address] Rin Acosta MD [address] [place] [address] Scheduled Orders Name Type Priority Associated Diagnoses Orde r Schedule BASIC METABOLIC PANEL Lab Routine HTN, goal below 130/80 Expected: 11/02/2023, Expires: 10/24/2024 Health Maintenance Due Date Last Done Comments Depression Screening 1952 Albumin/Creatinine Ratio 11/07/1957 DTaP,Tdap,and Td Vaccines (1 - Tdap) 11/07/1958 Zoster Vaccines (1 of 2) 11/07/1989 Pneumococcal Vaccine: 65+ Years (1 of 1 - PCV) 11/07/2004 DXA Scan 02/28/2010 02/28/2003 COVID-19 Vaccine (1 - 2022- season) 2023 Influenza Vaccine (FLU [...] as of this encounter Visit Diagnoses Diagnosis HTN, goal below 130/80- Primary Unspecified essential hypertension documented in this encounter Care Teams Business Operations Coordinator Relationship Specialty Start Date End Date Rin Acosta MD [address] [place] [address] PCP - General Internal Medicine 10/01/23 documented as of this encounter
--- OUTSIDE RECORDS SUMMARY | 2023-11-02 06:04 | External Medical Summary | Continuity of Care Document ---
Author Name Unknown Organization [facility] [address] [place], [place] [id number] Encounter [facility] [id number] Date(s): 10/12/23 - 10/12/23 [facility] [address] [facility] [address], [address] [place] [phone] Discharge Disposition: Home or Self Care Attending Physician: DO Allen Jason D Referring Physician: DO Allen Jason D Results Radiology Reports * Exam Date Time Procedure Performing Provider Status 10/12/23 10:43 AM Echo TransTHORacic TTE Complete Wednesday; Final Notes: (Echo TransTHORacic TTE Complete) Reason For Exam: dilated cardiomyopathy Echo TransTHORacic TTE Complete Report Signatures Finalized by Dr. Wili Allen MD on 10/14/2023 01:03 PM [place] Act 112: Yes - Discussed with patient Summary 1. Normal left ventricular size. 2. The mid to distal LAD territory is hypokinetic; the basal inferior wall is akinetic with the mid to distal inferior wall being hypokinetic. 3. Mildly reduced systolic function. Ejection fraction as calculated by Biplane Simpsons method is 45-50%. 4. Mild concentric left ventricular hypertrophy. 5. Unable to accurately assess the LV diastolic function due to atrial fibrillation; likely at least grade II. 6. Elevated left atrial pressure. 7. Normal right ventricular size with reduced systolic function. 8. Severely dilated left atrium size. 9. Dilated right atrium. 10. 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 Effacement of the sinotubular junction. 11. Moderate to Severe aortic insufficiency. (PHT c/w moderate to severe; Vena Contracta 0.8 cm). 12. Moderate to severe mitral valve regurgitation. 13. Severe tricuspid regurgitation. 14. Mildly elevated pulmonary artery pressures, estimated PASP is 40 mmHg. 15. No prior studies for comparison. Patient Info Name: KIKA GOEL Age: 82 years : 1940 Gender: Female Ht: 165 cm Wt: 73 kg BSA: 1.84 m2 HR: 86 bpm BP: 110 / 82 mmHg Heart Rhythm: Atrial Fibrillation Technical Quality: Good Exam Date: 10/12/2023 9:04 AM Exam Location: [facility] Patient Status: Outpatient Staff Ordering Physician: Wili Allen Photographic Equipment Inspector: Marilyn Ochoa RDCS, RVT Attending Physician: Wili Allen ([email or web address]) Study Info CPT 71582 - Indications I42.0 - Dilated cardiomyopathy Procedure(s) * A complete two-dimensional, color flow and Doppler transthoracic echocardiogram was performed. Exam Type: Cardiac Basic Left Ventricle Normal left ventricular size. The mid to distal LAD territory is hypokinetic; the basal inferior wall is akinetic with the mid to distal inferior wall being hypokinetic. Mildly reduced systolic function. Ejection fraction as calculated by Biplane Simpsons method is 45-50%. Mild concentric left ventricular hypertrophy. Unable to accurately assess the LV diastolic function due to atrial fibrillation; likely at least grade II. Elevated left atrial pressure. Right Ventricle Normal right ventricular size with reduced systolic function. TAPSE was 0.8 cm. Left Atrium Severely dilated left atrium size. Right Atrium Dilated right atrium. Atrial Septum Appears intact. Aortic Valve Calcified, tricuspid aortic valve without stenosis. Moderate to Severe aortic insufficiency. (PHT c/w moderate to severe; Vena Contracta 0.8 cm). Pulmonic Valve Normal pulmonic valve. Estimated pulmonary arterial mean pressure 6 mmHg. Mitral Valve Calcified mitral valve annulus without stenosis. Moderate to severe mitral valve regurgitation. Tricuspid Valve Severe tricuspid regurgitation. Mildly elevated pulmonary artery pressures, estimated PASP is 40 mmHg. Hepatic Veins Systolic flow reversal in the hepatic vein consistent with severe tricuspid regurgitation. Pericardium/Pleural No pericardial effusion. Inferior Vena Cava Top normal IVC size with normal inspiratory collapse. Estimated right atrial pressure is 3 mmHg. Aorta Normal size aortic root and aortic arch. 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 Effacement of the sinotubular junction. Calcified aortic arch and proximal descending thoracic aorta. Left Ventricular Outflow Tract Name Value Normal LVOT 2D LVOT Diameter 1.8 cm LVOT Doppler LVOT Peak Velocity 0.82 m/s LVOT Peak Gradient 2 mmHg LVOT Mean Gradient 2 mmHg LVOT VTI 16.29 cm LVOT Stroke Volume 43.55 ml LVOT Stroke Volume Index 0.02 l/m2 LVOT Cardiac Output 3.75 l/min LVOT Cardiac Index 2.04 L/min/m2 Pulmonic Valve Name Value Normal PV 2D RVOT Diameter (2D) 2.2 cm 1.7-2.7 RVOT Doppler RVOT Peak Velocity 0.37 m/s RVOT Peak Gradient 0 mmHg PV Doppler PV Peak Velocity 0.55 m/s PV Peak Gradient 1 mmHg PV Regurgitation Doppler AZ Peak Velocity 0.86 m/s Mitral Valve Name Value Normal MV Doppler MV PHT 50 ms MV Diastolic Function MV E Peak Velocity 1.09 m/s <=0.50 MV Decel Time 171 ms MV Annular TDI MV Septal s' Velocity 3.47 cm/s MV Septal e' Velocity 4.52 cm/s >=7.00 MV E/e' (Septal) 24.0 <=8.0 MV Lateral s' Velocity 4.69 cm/s MV Lateral e' Velocity 7.90 cm/s >=10.00 MV E/e' (Lateral) 13.76 <=8.00 MV e' Average 6.21 MV E/e' (Average) 18.90 <=14.00 Tricuspid Valve Name Value Normal TV Regurgitation Doppler TR Peak Velocity 3.05 m/s <=2.80 TR Peak Gradient 37 mmHg Estimated PAP/RSVP RA Pressure 3 mmHg <=5 PA Systolic Pressure 40 mmHg <40 PA Mean Pressure (AZ Velocity) 6 mmHg TV Diastolic Function TV E Peak Velocity 0.47 m/s TV Decel Time 348 ms >=120 TV Annular TDI TV Lateral Jessica s' Velocity 4.3 cm/s 9.5-18.7 TV Lateral Jessica e' Velocity 8.8 cm/s <7.8 TV E/e' 5.35 2.00-6.00 Aorta Name Value Normal Ascending Aorta Sinus of Valsalva Diameter 3.3 cm 2.7-3.3 Sinus of Valsalva Index 1.80 cm/m2 1.60-2.00 Prox Asc Ao Diameter 4.8 cm 2.3-3.1 Prox Asc Ao Diameter Index 2.60 cm/m2 1.30-1.90 Thoracic Aorta Ao Arch Diameter 2.8 cm Venous Name Value Normal IVC/SVC IVC Diameter (Insp 2D) 0.6 cm IVC Diameter (Exp 2D) 2.1 cm <=2.1 IVC Diameter Percent Change (2D) 73 % >=50 Aortic Valve Name Value Normal AV Doppler AV Peak Velocity 1.24 m/s <2.00 AV Peak Gradient 6 mmHg AV Area (Cont Eq Zohaib) 1.8 cm2 AV Area Index (Cont Eq Zohaib) 0.96 cm2/m2 AV V1/V2 Ratio 0.66 AV Regurgitation 2D LVOT Area 2.7 cm2 AV Regurgitation Doppler AR Peak Velocity 4.69 m/s AR Decel Time 1,099 ms AR PHT 319 ms Ventricles Name Value Normal LV Dimensions 2D/MM IVS Diastolic Thickness (2D) 1.0 cm 0.6-0.9 LVID Diastole (2D) 4.9 cm 3.3-5.1 LVIW Diastolic Thickness (2D) 1.1 cm 0.6-0.9 LVID Systole (2D) 3.5 cm 2.2-3.5 LVOT Diameter 1.8 cm LV Mass (2D Cubed) 185.93 g 67.00-162.00 Relative Wall Thickness (2D) 0.44 LV Fractional Shortening/Ejection Fraction 2D/MM LV Fractional Shortening (2D) 28 % 27-45 LV Diastolic Volume (4C MOD) 77 ml LV Diastolic Volume (2C MOD) 69 ml LV Diastolic Volume (BP MOD) 73 ml 46-106 LV Diastolic Volume Index (BP MOD) 39.74 ml/m2 29.00-61.00 LV Systolic Volume (BP MOD) 39 ml 14-42 LV Systolic Volume Index (BP MOD) 21.40 ml/m2 8.00-24.00 LV EF (BP MOD) 46 % 58-69 LV SV (BP MOD) 33.74 ml RV Dimensions 2D/MM RV Basal Diastolic Dimension 3.5 cm 2.5-4.1 TAPSE 0.8 cm >=1.7 Atria Name Value Normal LA Dimensions LA Area (4C) 27.3 cm2 LA Length (4C) 7.1 cm LA Area (2C) 29.0 cm2 LA Length (2C) 7.1 cm LA Volume (4C A-L) 89.36 ml LA Volume (2C A-L) 101.03 ml LA Volume (BP A-L) 95 ml 22-52 LA Volume Index (BP A-L) 51.66 ml/m2 <=34.00 RA Dimensions RA Area (4C) 19.9 cm2 <=18.0 Final Signed by:DO Allen Jason D Signed (Electronic Signature):10/12/2023 9:04 a Social History Social History Type Response Sex Female Cardiology * Contributor_system, [id number]: VERIFY, PERFORM Event Display: EKG Authored Date: Please click on link to see image.
--- OUTSIDE RECORDS SUMMARY | 2023-11-02 06:04 | External Medical Summary | Summary of Care ---
Author Name Unknown Organization [facility] Address [address] [facility] [place] [address] Phone [phone] Care Team Providers Care Band Instrument Repairer Name Role Phone Rin Acosta MD Primary Care Provider Encounter Details Date Type Department Care Team (Late st Contact Info) Description 10/28/2023 Orders Only PATIENT PORTAL DO NOT DELETE THIS DEPT USED BY [place] [id number] Allergies Active Allergy Reactions Criticality Noted Date Comments Penicillins 12/08/1999 hives Sulfa Antibiotics 12/08/1999 rash documented as of this encounter (statuses as of 10/28/2023) Medications Medication Sig Dispensed Refills Start Date [...] as of this encounter (statuses as of 10/28/2023) Active Problems Problem Noted Date Diagnosed Date Acquired hypothyroidism 10/01/2023 Atrial fibrillation 10/01/2023 Post-menopause on HRT (hormone replacement thera py) 10/01/2023 Aortic root enlargement 10/01/2023 HTN, goal below 130/80 10/01/2023 Hyponatremia 10/01/2023 Enthesopathy of hip 01/28/2009 ADVANCE DIRECTIVE INFORMATION 11/16/2006 documented as of this encounter (statuses as of 10/28/2023) Immunizations No known immunizationsdocumented as of this [...] 10/09/2024 1:40 PM EDT Office Visit Family Practice [facility] [address] [place] [address] Rin Acosta MD [address] [place] [address] Health Maintenance Due Date Last Done Comments Depression Screening 1952 Albumin/Creatinine Ratio 11/07/1957 DTaP,Tdap,and Td Vaccines (1 - Tdap) 11/07/1958 Zoster Vaccines (1 of 2) 11/07/1989 Pneumococcal Vaccine: 65+ Years (1 of 1 - PCV) 11/07/2004 DXA Scan 02/28/2010 02/28/2003 COVID-19 Vaccine (1 - 2022-24 season) 2023 Influenza Vaccine (FLU shot) (Season [...] filedocumented as of this encounter Care Teams Band Instrument Repairer Relationship Specialty Start Date End Date Rin Acosta MD [address] [place] [address] PCP - General Internal Medicine 10/01/23 documented as of this encounter
--- OUTSIDE RECORDS SUMMARY | 2023-11-02 06:04 | External Medical Summary | Summary of Care ---
Author Name Unknown Organization [facility] Address [address] [facility] [place] [address] Phone [phone] Care Team Providers Care Sub Arc Operator Name Role Phone Rin Acosta MD Primary Care Provider Encounter Details Date Type Department Care Team (Late st Contact Info) Description 10/04/2023 Orders Only PATIENT PORTAL DO NOT DELETE THIS DEPT USED BY [place] [id number] Allergies Active Allergy Reactions Criticality Noted Date Comments Penicillins 12/08/1999 hives Sulfa Antibiotics 12/08/1999 rash documented as of this encounter (statuses as of 10/04/2023) Medications Medication Sig Dispensed Refills Start Date [...] as of this encounter (statuses as of 10/04/2023) Active Problems Problem Noted Date Diagnosed Date Acquired hypothyroidism 10/01/2023 Atrial fibrillation 10/01/2023 Post-menopause on HRT (hormone replacement thera py) 10/01/2023 Aortic root enlargement 10/01/2023 HTN, goal below 130/80 10/01/2023 Hyponatremia 10/01/2023 Enthesopathy of hip 01/28/2009 ADVANCE DIRECTIVE INFORMATION 11/16/2006 documented as of this encounter (statuses as of 10/04/2023) Immunizations No known immunizationsdocumented as of this [...] 1:40 PM EDT Office Visit Family Practice [facility] [address] [address] Rin Acosta MD [address] [place] [address] Health Maintenance Due Date Last Done Comments Depression Screening 1952 Albumin/Creatinine Ratio 11/07/1957 DTaP,Tdap,and Td Vaccines (1 - Tdap) 11/07/1958 Zoster Vaccines (1 of 2) 11/07/1989 TSH 12/14/2000 12/15/1999, 03/1998, 04/06/1997, Additional history exists Pneumococcal Vaccine: 65+ Years (1 of 1 - PCV) 11/07/2004 GFR 02/08/2008 02/07/2007, 10/1996, 10/18/1996, Additional history exists DXA Scan 02/28/2010 02/28/2003 COVID-19 Vaccine (2022-24 season) 2023 Influenza Vaccine (FLU shot) (#1) 2023 GARDASIL-HPV IMMUNIZATION SERIES Aged Out No longer eligible based on patient's age to complete this topic Hepatitis B Aged Out No longer eligi ble based on patient's age to complete this topic MENINGOCOCCAL (MENACTRA/MENVEO) Aged Out No longer eligible based on patient's age to complete this topic documented as of this encounter Medical Devices Not on filedocumented as of this encounter Care Teams Sub Arc Operator Relationship Specialty Start Date End Date Rin Acosta MD [address] [place] [address] PCP - General Internal Medicine 10/01/23 documented as of this encounter
--- OUTSIDE RECORDS SUMMARY | 2023-11-02 06:04 | External Medical Summary | Summary of Care ---
Author Name Unknown Organization [facility] Address [address] [facility] [place] [address] Phone [phone] Care Team Providers Care Nurse Office Name Role Phone Rin Acosta MD Primary Care Provider Reason for Visit * Reason Comments Physical-Exam Establish care Encounter Details Date Type Department Care Team (Late st Contact Info) Description 10/01/2023 8:20 AM EDT Office Visit Family Practice [facility] [address] [address] Rin Aocsta MD [address] [place] [address] Acquired hypothyroidism*; Atrial fibrillation, unspecified type (HCC); Post-menopause on HRT (hormone replacement therapy); Aortic root enlargement (HCC); Hyponatremia; HTN, goal below 130/80 Allergies Active Allergy Reactions Criticality Noted Date Comments Penicillins 12/08/1999 hives Sulfa Antibiotics 12/08/1999 rash documented as of this encounter (statuses as of 10/01/2023) Medications Medication Sig Dispensed Refills Start Date [...] Active Estrogens Conjugated 0.625 MG Oral Tablet (Premarin)Indication s:Post-menopause on HRT (hormone replacement therapy) Take 1 Tablet by mouth in the morning. 90 Tablet 3 10/01/2023 Active Cetirizine HCl 10 MG Oral Tablet (ZyrTEC Allergy) Take 1 Tablet by mouth in the morning. 0 Active Levothyroxine Sodium 75 MCG Oral Tablet (Synthroid)Indicatio ns:Acquired hypothyroidism Take 1 Tablet by mouth in the morning. (at least 30 min prior to breakfast or other meds). 90 Tablet 3 10/01/2023 Active ZYRTEC 10 MG OR TABSIndications:Federico rgic rhinitis 1 TABLET DAILY 30 4 12/04/2002 4 Discontinue d(Medicatio n List Clean Up) ASPIRIN 81 MG OR TABS 1 TABLET DAILY 0 12/03/2004 4 Discontinue d(Medicatio n List Clean Up) TRIAMTERENE-HCTZ 37.5-25 MG OR CAPS 1 by mouth once daily 30 5 12/03/2004 4 Discontinue d(Medicatio n List Clean Up) SYNTHROID 75 MCG OR TABS one tablet daily 0 4 Discontinue d(Refill) PREMARIN 0.625 MG PO TABS one tablet daily 0 4 Discontinue d(Refill) ECOTRIN LOW STRENGTH 81 MG PO TBEC None Entered 0 4 Discontinue d(Medicatio n List Clean Up) documented as of this encounter (statuses as of 10/01/2023) Active Problems Problem Noted Date Diagnosed Date Acquired hypothyroidism 10/01/2023 Atrial fibrillation 10/01/2023 Post-menopause on HRT (hormone replacement thera py) 10/01/2023 Aortic root enlargement 10/01/2023 HTN, goal below 130/80 10/01/2023 Hyponatremia 10/01/2023 Enthesopathy of hip 01/28/2009 ADVANCE DIRECTIVE INFORMATION 11/16/2006 documented as of this encounter (statuses as of 10/01/2023) Immunizations No known immunizationsdocumented as of this encounter Social History Tobacco Use Types Packs/Day Years Used Date Smoking Tobacco: Former Smokeless Tobacco: Never Tobacco Cessation:Counseling Given: Not Answered Alcohol Use Standard Drinks/Week Comments Yes 0 [...] on file documented as of this encounter Last Filed Vital Signs Vital Sign Reading Time Taken Comments Blood Pressure 104/72 10/01/2023 8:21 AM EDT Pulse 97 10/01/2023 8:21 AM EDT Temperature 36.3 C (97.3 F) 10/01/2023 8:21 AM ED T Respiratory Rate 16 10/01/2023 8:21 AM EDT Oxygen Saturation 100% 10/01/2023 8:21 AM EDT Inhaled Oxygen Concentration - - Weight 75.9 kg (167 lb 6.4 oz) 10/01/2023 8:21 A M EDT Height 166 cm (5' 5.35") 10/01/2023 8:21 AM EDT Body Mass Index 27.56 10/01/2023 8:21 AM EDT documented in this encounter Progress Notes * Rin Acosta MD - 10/01/2023 8:31 AM EDT Images from the original note were not included. History of Present Illness Marium Townsend is a 82 year old female that presents for Physical-Exam (Establish care) Records reviewed from [facility] and [facility] Hypothyroidism - clinically euthyroid Menopause - taking Premarin since age 49. Brief trial of discontinuation 17 years ago led to severebone aches. Prefers to remain on this medication. Atrial fibrillation, HTN, Aortic enlargement,?AI Establishing with Dr. Allen for Cardiology. Seasonal allergies Hx hyponatremia - may have been while taking sertraline. Independent, mentally sharp. Living with daughter in an apartment attached to her home. Moved here from [facility]. Viraj Townsend passed December 2022. He was ObGyn at [facility] [facility]. Labs 12/2022: MCV 103, Hg 13.5 Na 132 Normal BUN/Cr Elevated GGT TSH 1.0 Colonoscopies in past, always normal. Mammogram up until 2yrs ago - breast awareness. Doesn't want to do mammograms. No aggressive prolongation of life. Wants to be comfortable. Nicotine; quit 10-12yrs ago. Smoked at the car, 1 pack/wk. Cannabis; never Alcohol: 2 glasses wine/wk. Exercise: likes to walk, bu tknees/hips hurt. PT helps. Eating: No concerns Laughs a lot. Current medications and allergies reviewed. Past medical history and problem list reviewed. Physical Exam Vitals: 10/01/23 0821 Temp: 36.3 C (97.3 F) Pulse: 97 Resp: 16 SpO2: 100% BP: 104/72 BMI: 27.56 Physical Exam Vitals and nursing note reviewed. Constitutional: General: She is not in acute distress. Appearance: Normal appearance. She is not ill-appearing. HENT: Head: Normocephalic and atraumatic. Right Ear: Tympanic membrane, ear canal and external ear normal. There is no impacted cerumen. Left Ear: Tympanic membrane, ear canal and external ear normal. There is no impacted cerumen. Nose: Nose normal. Mouth/Throat: Mouth: Mucous membranes are moist. Pharynx: Oropharynx is clear. Eyes: General: No scleral icterus. Conjunctiva/sclera: Conjunctivae normal. Pupils: Pupils are equal, round, and reactive to light. Neck: Thyroid: No thyroid mass, thyromegaly or thyroid tenderness. Cardiovascular: Rate and Rhythm: Normal rate and regular rhythm. Heart sounds: No murmur heard. Pulmonary: Effort: Pulmonary effort is normal. Breath sounds: Normal breath sounds. Abdominal: General: Abdomen is flat. There is no distension. Palpations: Abdomen is soft. Tenderness: There is no abdominal tenderness. There is no guarding or rebound. Musculoskeletal: Right lower leg: No edema. Left lower leg: No edema. Lymphadenopathy: Cervical: No cervical adenopathy. Skin: General: Skin is warm and dry. Neurological: Mental Status: She is alert. Psychiatric: Mood and Affect: Mood normal. Behavior: Behavior normal. I have reviewed the following results: see HPI Assessment and Plan Acquired hypothyroidism Refill sent. Will get TSH updated when she gets blood work done for Cardiology - Levothyroxine Sodium 75 MCG Oral Tablet (Synthroid); Take 1 Tablet by mouth in the morning. (at least 30 min prior to breakfast or other meds). - TSH WITH FREE T4 IF INDICATED; Future Atrial fibrillation, unspecified type (HCC) Per cardiology Post-menopause on HRT (hormone replacement therapy) Aware of the risks of continuing, happy to continue the prescription - Estrogens Conjugated 0.625 MG Oral Tablet (Premarin); Take 1 Tablet by mouth in the morning. Aortic root enlargement (HCC) Per cardiology Hyponatremia Will update serum sodium. Avoid SSRIs or other hyponatremic drugs. - COMPREHENSIVE METABOLIC PANEL; Future HTN, goal below 130/80 At goal Wrap-Up Follow Up: Return in about 1 year (around 09/30/2024) for Return with Isaura Acosta labs to take to outside lab in November. | For: Return with Isuara Acosta labs to take to outside lab in November Time: I spent a total of 40-54 minutes (exact time 50 mins) on the date of service in preparation, delivery, and documentation of the care provided to Marium Townsend excluding any time spent in the performance of separately billed services. documented in this encounter Plan of Treatment Upcoming Encounters Date Type Department Care Team (Late st Contact Info) Description 10/09/2024 1:40 PM EDT Office Visit Family [facility] [address] [address] Rin Acosta MD [address] [address] Scheduled Orders Name Type Priority Associated Diagnoses Orde r Schedule TSH WITH FREE T4 IF INDICATED Lab Routine Acquired hypothyroidism Expected: 10/01/2023, Expires: 09/30/2024 COMPREHENSIVE METABOLIC PANEL Lab Routine Hyponatremia Expected: 10/01/2023, Expires: 09/30/2024 Health Maintenance Due Date Last Done Comments Depression Screening 1952 DTaP,Tdap,and Td Vaccines (1 - Tdap) 11/07/1958 Zoster Vaccines (1 of 2) 11/07/1989 TSH 12/14/2000 12/15/1999, 03/1998, 04/06/1997, Additional history exists Pneumococcal Vaccine: 65+ Years (1 of 1 - PCV) 11/07/2004 DXA Scan 02/28/2010 02/28/2003 COVID-19 Vaccine (1 - 2022-24 season) 2023 Influenza Vaccine (FLU shot) (#1) [...] of this encounter Visit Diagnoses Diagnosis Acquired hypothyroidism- Primary Unspecified hypothyroidism Atrial fibrillation, unspecified type (HCC) Post-menopause on HRT (hormone replacement therapy) Need for prophylactic hormone replacement therapy (postmenopausal) Aortic root enlargement (HCC) Other specified disorders of arteries and arterioles Hyponatremia Hyposmolality and/or hyponatremia HTN, goal below 130/80 Unspecified essential hypertension documented in this encounter Care Teams Nurse Office Relationship Specialty Start Date End Date Rin Acosta MD [address] [place] [address] PCP - General Internal Medicine 10/01/23 documented as of this encounter
--- OUTSIDE RECORDS SUMMARY | 2023-11-02 06:04 | External Medical Summary ---
Author Name Unknown Address Unknown Organization [id number]:[facility] [place] [address] [place] [address] Laboratory Report Ordering Provider Test Date Status LOVE YIN 10/22/2023 11:20:27 Final Observation Date Value Abnormality Reference (Units ) Status BUN 10/22/2023 11:20:27 18 6-20 (mg/dL) Final Creatinine 10/22/2023 11:20:27 1.1 Above high normal 0.5-1.0 (mg/dL) Final Glomerular filtration rate/1.73 sq M.predicted [Volume Rate/Area] in Serum, Plasma or Blood by Creatinine-based formula (CKD-EPI) 10/22/2023 11:20:27 52 Below low normal >=60 (mL/min) Final eGFR is calculated based on the CKD-EPI 2020 equation Sodium 10/22/2023 11:20:27 133 Below low normal 135 -146 (mmol/L) Final Potassium 10/22/2023 11:20:27 5.2 Above high normal 3. 5-5.1 (mmol/L) Final Cl 10/22/2023 11:20:27 97 Below low normal 98- 107 (mmol/L) Final CO2 10/22/2023 11:20:27 26 22-32 (mmo l/L) Final Anion gap 10/22/2023 11:20:27 10 7-15 (mmol /L) Final Glucose 10/22/2023 11:20:27 103 70-120 (mg /dL) Final Albumin 10/22/2023 11:20:27 4.2 3.8-5.0 (g /dL) Final AST (Aspartate aminotransferase) 10/22/2023 11:20:27 25 10-35 (U/L) Fin al Alk Phos 10/22/2023 11:20:27 39 35-130 (U/ L) Final Bilirubin, Total 10/22/2023 11:20:27 0.5 <=1 .2 (mg/dL) Final Calcium 10/22/2023 11:20:27 8.9 8.4-10.2 ( mg/dL) Final Protein 10/22/2023 11:20:27 7.0 6.0-8.3 (g /dL) Final ALT (Alanine aminotransferase) 10/22/2023 11:20:27 16 10-35 (U/L) Kalpesh noel Performing Location [facility] [place] [facility] [address] [id number]
--- OUTSIDE RECORDS SUMMARY | 2023-11-02 06:04 | External Medical Summary ---
Author Name Unknown Address Unknown Organization [id number]:[facility] [place] - [address] [place] [address] Laboratory Report Ordering Provider Test Date Status LOVE YIN 10/22/2023 11:20:27 Final Observation Date Value Abnormality Reference (Units ) Status TSH 10/22/2023 11:20:27 4.70 Above high normal 0. 27-4.20 (uIU/mL) Final Performing Location [facility] [place] - [address] [place] [address]
[2023-11-02 07:21] LABS: Basophils # (auto) 0.05 K/uL (0.00-0.20); Basophils % (auto) 0.9 %; Eosinophils # (auto) 0.14 K/uL (0.00-0.50); Eosinophils % (auto) 2.5 %; Hematocrit (blood only) 37.2 % (37.0-47.0); Hemoglobin 12.6 g/dl (12.0-16.0); Immature Granulocytes # (auto) 0.03 K/uL (0.01-0.20); Immature Granulocytes % (auto) 0.5 %; Lymphocytes # (auto) 1.11 K/uL (1.20-3.40); Lymphocytes % (auto) 19.8 %; Mean Corpuscular Hemoglobin 33.6 pg (25.0-34.0); Mean Corpuscular Hgb Conc 33.9 g/dL (32.0-36.0); Mean Corpuscular Volume 99.2 fL (80.0-100.0); Mean Platelet Volume 10.6 fL (9.4-12.4); Monocytes # (auto) 0.54 K/uL (0.11-0.59); Monocytes % (auto) 9.6 %; Neutrophils # (auto) 3.73 K/uL (1.40-6.50); Neutrophils % (auto) 66.7 %; Platelet Count 140 K/uL (130-400); RDW Coefficient of Variation 12.2 % (11.5-14.5); RDW Standard Deviation 44.6 fL (36.4-46.3); Red Blood Count 3.75 M/uL (4.20-5.40)
[2023-11-02 07:39] LABS: BUN Creatinine Ratio 20.5 (10-20); Calcium 8.3 mg/dl (8.6-10.3); Creatinine Clr Calc Pharmacy 49.2 ml/min; Est GFR (African American) 70.4 ml/min; Est GFR (Non-African American) 60.8 ml/min; Magnesium 1.8 mg/dl (1.7-2.4); Phosphorus 3.7 mg/dl (2.5-4.9); Potassium 4.2 mmol/L (3.5-5.1)
--- NOTE | 2023-11-02 08:21 | CT Scan Report ---
CT head/brain wo con CLINICAL HISTORY: 82 years-old Female with r/o bleed. Acute headache TECHNIQUE: Multiple axial CT images of the head were obtained without contrast. A dose lowering tech nique was utilized adhering to the principles of ALARA. CT DOSE: 547.75 mGy.cm COMPARISON: 11/01/2023 FINDINGS: No acute intracranial hemorrhage, midline shift, intracranial mass, hydrocephalus, territorial ischem ia or abnormal extra-axial collection. Unchanged 5 mm right cerebellar calcification. Cerebral vascul ar calcifications. Involutional changes with chronic microvascular ischemic disease. 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 Probable lacunar infarct within the pontine brainstem on image 8 series 2. Left cerebellar encephalomalacia. The calvarium is intact. Prior bilateral lens repair. Indeterminate 10 mm soft tissue attenuating sub cutaneous likely benign lesion within the superior right parietal scalp on image 23 series 3. The par anasal sinuses, mastoid air cells, and middle ear cavities are clear. IMPRESSION: 1. Unchanged 5 mm right cerebellar calcification. 2. Involutional changes with chronic microvascular ischemic disease. 3. Chronic left MCA infarct. 4. Age-indeterminate likely chronic subcentimeter pontine lacunar infarct. ACT 112: Negative or not required by law. The above report was generated using voice recognition software. It may contain grammatical, syntax o r spelling errors. Electronically signed by: Zhao Mejia M.D. 11/02/2023 8:18 AM
[2023-11-02] MEDS: ESTROGENS, CONJUGATED 0.625 MG TAB PO SCH (08:50)
[2023-11-02] MEDS: lisinopril 20 MG TAB PO SCH (08:50)
[2023-11-02] MEDS: SPIRONOLACTONE 12.5 MG TAB PO SCH (08:51)
[2023-11-02] MEDS ORDERED: lisinopril 20 MG TAB PO SCH (09:00)
[2023-11-02] MEDS ORDERED: METOPROLOL SUCC 50MG EXT REL TAB PO SCH (09:00)
[2023-11-02] MEDS ORDERED: SPIRONOLACTONE 25 MG TAB PO SCH (09:00)
[2023-11-02] MEDS ORDERED: LEVOTHYROXINE SODIUM 75 MCG TABLET PO SCH (09:00)
--- NOTE | 2023-11-02 14:26 | Hospitalist Progress Note ---
Date of Service November 02, 2023 Assessment & Plan (1) Change in mental status: Plan: Acute metabolic and cephalopathy-likely secondary to UTI Noted to be since yesterday Does not have the condition anymore CT scan did show 5 mm hypodensity in the cerebellar hemisphere on the right side Doubt any bleeding but was advised to have repeat the scan within 12 to 24 hours She does not have any neurodeficit on examination INR is 1.1 and she is not on Coumadin Mental status has been at baseline Abnormal CT scan of the head Showed calcification in the cerebellar area Doubt about bleeding has been ruled out by doing repeat CAT scan this morning She was reassured (2) Acute UTI: Plan: Noted to have acute UTI on UA examination Urine culture is 17 Started with intravenous ceftriaxone Advised to drink more fluid Urine culture is growing gram-negative bacilli and further identification is pending (3) Atrial fibrillation: Plan: Rate is on the higher side Will continue current medications (4) Aortic root enlargement: Plan: History of aortic root enlargement Blood pressure should be controlled and which is a little high on the upper side at 148/77 (5) Hypertension: Plan: Blood pressure noted to be low at doctor's office Lisinopril dose was decreased to 20 mg Will monitor blood pressure (6) Chronic hyponatremia: Plan: Sodium level noted to be 130 Will monitor DVT prophylaxis On Eliquis-will hold for tonight Eliquis has been restarted CODE STATUS DNR/DNI-discussed with the patient and the family members Likely to be discharged tomorrow following the definitive culture and sensitivity of the urine Admission and Anticipated Discharge Date Admission Date: November 01, 2023 Subjective 11/02/2023 The patient was seen and examined in medical telemetry unit in presence of the daughter She has been feeling much better and wants to go Her repeat CAT scan did show same calcification no bleed Eliquis has been restarted Review of Systems 2 Review of Systems: All systems reviewed and are unremarkable except as mentioned below Physical Exam Physical Exam: Lying in bed without any acute distress Constitutional: well developed, well nourished, + ill appearing and + obese Eyes: PERRL, conjunctivae normal, anicteric sclerae ENMT: external ear and nose normal, oropharynx normal Neck: trachea midline, no thyromegaly Respiratory: no respiratory distress Auscultation: lungs clear to auscultation bilaterally Cardiovascular: Rate/Rhythm: regular rate and regular rhythm; not tachycardic Heart Sounds: normal S1, normal S2 and + murmur Extremities: no edema Gastrointestinal (Abdomen): Inspection/Auscultation: normal bowel sounds; abdomen not distended Percussion/Palpation: abdomen nontender Musculoskeletal: No acute arthritis involving any of the joint Neurologic: normal touch/pain/proprioception and moves all extremities; no focal motor deficits and not confused Lymphatic: no cervical or axillary lymphadenopathy Results & Data Results & Data Vital Signs (Past 12 Hours) Vital Signs Temp Pulse Resp BP Pulse Ox O2 Del Method 11/02/23 11:07 36.5 C 84 18 128/75 91 Room Air 11/02/23 07:59 36.4 C L 101 H 18 138/75 91 Room Air 11/02/23 02:30 36.4 C L 86 16 144/87 H 97 Room Air Laboratory Results Short CBC 11/01/23 11/02/23 Range/Units 16:05 06:23 WBC 6.45 5.60 (4.8-10.8) K/ul Hgb 14.3 12.6 (12.0-16.0) g/dl Hct 42.9 37.2 (37.0-47.0) % Plt Count 174 140 (130-400) K/uL BMP 11/01/23 11/02/23 16:05 06:23 Sodium 130 L 130 L Potassium 4.8 4.2 Chloride 97 L 99 Carbon Dioxide 26 24 BUN 21 18 Creatinine 1.16 0.88 Glucose 97 92 Calcium 8.9 8.3 L Liver Function 11/01/23 Range/Units 16:05 Total Bilirubin 0.6 (0.2-1.0) mg/dl AST 20 (13-39) U/L ALT 14 (7-52) U/L Alkaline Phosphatase 32 L (34-104) U/L Albumin 4.2 (3.4-5.0) gm/dl Urine 11/01/23 Range/Units 16:03 Urine Color Yellow Urine Appearance Cloudy A (Clear) Urine pH 6.0 (4.5-7.5) Ur Specific [place] 1.019 (1.000-1.030) Urine Protein Negative (Negative) Urine Glucose (UA) Negative (Negative) Medications Administered Current Inpatient Medications Acetaminophen (Acetaminophen 325 Mg Tab) 650 mg PO Q6H PRN PRN Reason: Pain or Fever Stop: 12/01/23 23:01 Last Admin: 11/02/23 08:55 Dose: 650 mg Apixaban (Apixaban 5 Mg Tablet) 5 mg PO BID [facility] Stop: 12/01/23 20:59 Cetirizine HCl (Cetirizine Hcl 10 Mg Tablet) 10 mg PO HS [facility] Stop: 12/01/23 23:29 Last Admin: 11/01/23 23:43 Dose: 10 mg Estrogens Conjugated (Estrogens, Conjugated 0.625 Mg Tab) 0.625 mg PO DAILY [facility] Stop: 12/02/23 08:59 Last Admin: 11/02/23 08:50 Dose: 0.625 mg Ceftriaxone Sodium (Rocephin) 2,000 mg in 50 mls @ 100 mls/hr IV Q24H [facility] Stop: 11/07/23 17:59 Levothyroxine Sodium (Levothyroxine Sodium 75 Mcg Tablet) 75 mcg PO DAILYBB [facility] Stop: 12/02/23 06:29 Last Admin: 11/02/23 05:51 Dose: 75 mcg Lisinopril (Lisinopril 20 Mg Tab) 20 mg PO QAM [facility] Stop: 12/02/23 08:59 Last Admin: 11/02/23 08:50 Dose: 20 mg Metoprolol Succinate (Metoprolol Succ 50mg Ext Rel Tab) 100 mg PO BID [facility] Stop: 12/01/23 20:59 Last Admin: 11/02/23 08:51 Dose: 100 mg Spironolactone (Spironolactone 12.5 Mg Tab) 12.5 mg PO DAILY [facility] Stop: 12/02/23 08:59 Last Admin: 11/02/23 08:51 Dose: 12.5 mg
--- NOTE | 2023-11-02 14:58 | Electrocardiogram Report ---
Test Reason : Blood Pressure : / mmHG Vent. Rate : 099 BPM Atrial Rate : 000 BPM P-R Int : 000 ms QRS Dur : 086 ms QT Int : 344 ms P-R-T Axes : 000 013 051 degrees QTc Int : 441 ms Atrial fibrillation Low voltage QRS Septal infarct , age undetermined Abnormal ECG No previous ECGs available Confirmed by Mustapha Collins ([id number]) on 11/02/2023 2:58:22 PM Referred By: Confirmed By:Mustapha Collins
[2023-11-02] MEDS: cefTRIAXone SODIUM 2,000 MG/50 ML BAG IV SCH (18:31)
[2023-11-02] MEDS: APIXABAN 5 MG TABLET PO SCH (20:20)
[2023-11-03 09:55] LABS: Basophils # (auto) 0.04 K/uL (0.00-0.20); Basophils % (auto) 0.8 %; Eosinophils % (auto) 1.9 %; Hematocrit (blood only) 42.6 % (37.0-47.0); Hemoglobin 14.2 g/dl (12.0-16.0); Immature Granulocytes # (auto) 0.03 K/uL (0.01-0.20); Immature Granulocytes % (auto) 0.6 %; Lymphocytes # (auto) 0.66 K/uL (1.20-3.40); Lymphocytes % (auto) 12.6 %; Mean Corpuscular Hemoglobin 33.5 pg (25.0-34.0); Mean Corpuscular Hgb Conc 33.3 g/dL (32.0-36.0); Mean Corpuscular Volume 100.5 fL (80.0-100.0); Mean Platelet Volume 10.2 fL (9.4-12.4); Monocytes # (auto) 0.39 K/uL (0.11-0.59); Monocytes % (auto) 7.4 %; Neutrophils # (auto) 4.02 K/uL (1.40-6.50); Neutrophils % (auto) 76.7 %; Platelet Count 156 K/uL (130-400); RDW Coefficient of Variation 12.4 % (11.5-14.5); RDW Standard Deviation 46.4 fL (36.4-46.3); Red Blood Count 4.24 M/uL (4.20-5.40); White Blood Count 5.24 K/ul (4.8-10.8)
[2023-11-03 10:31] LABS: BUN Creatinine Ratio 19.5 (10-20); Calcium 9.4 mg/dl (8.6-10.3); Creatinine Clr Calc Pharmacy 49.4 ml/min; Est GFR (African American) 71.4 ml/min; Est GFR (Non-African American) 61.6 ml/min; Potassium 4.4 mmol/L (3.5-5.1)
--- NOTE | 2023-11-03 22:26 | Hospitalist Progress Note ---
Date of Service November 03, 2023 Assessment & Plan (1) Encephalopathy due to infection: (2) Hypomagnesemia: (3) Hyponatremia: (4) Hypertension: (5) Acute UTI: (6) Atrial fibrillation: (7) Aortic root enlargement: Plan Pt is an 81-year-old female with past medical history significant for atrial fibrillation on Coumadin, aortic root enlargement, hypertension, hypothyroidism and chronic hyponatremia presenting with fatigue, generalized malaise and confusion. Acute metabolic/toxic Encephalopathy Complicated UTI Change in mental status Hx of CVA Mental status changes noted the day before admission Head CTx2 showed 5 mm hypodensity in the cerebellar hemisphere on the right side, given stability on repeat imaging less likely hemorhage Also noted chronic strokes UA suggestive of infection, urine Cx grew 2 strains of bacteria, possible cause Biofire negative Chest XRAY with no acute changes Continue IV Rocephin at this time for UTI Symptoms improved, currently back to baseline Delirium precautions. Frequent reorientation, avoid sedating medication Continue to monitor Atrial fibrillation Rate currently controlled Will continue current medications -on toprol xl 100mg bid, eliquis 5mg bid Aortic root enlargement History of aortic root enlargement Blood pressure should be controlled, see below Hypertension continue home lisinopril 20 mg daily, spironolactone 12.5mg, toprol xl 100mg bid Chronic hyponatremia Sodium level noted to be 130 on admission improving, continue to monitor Diet: HH DVT prophylaxis: On Eliquis CODE STATUS: DNR/DNI Dispo: home in AM, Pt/ot ordered Admission and Anticipated Discharge Date Admission Date: November 01, 2023 Subjective Pt was seen in AM. Also discussed with her daughter on the phone. Anxious for discharge, notes she cannot sleep at night. States her confusion is better. Review of Systems Review of Systems: All systems reviewed & are unremarkable except as noted in Subjective Physical Exam Physical Exam: General: Alert, orientedx3. No acute distress Skin: No noted rashes or bruises Psych: Appropriate mood and affect Neuro: No gross deficits HEENT: NC/AT Chest: Nontender to palpation. CV: Irregular Resp: Breath sounds clear bilaterally, no increased effort of breathing. Abdomen: Soft, nontender, nondistended. Extremities: No edema in lower extremities bilaterally. Results & Data Results & Data Vital Signs (Past 12 Hours) Vital Signs Temp Pulse Resp BP Pulse Ox O2 Del Method 11/03/23 11:19 36.4 C L 75 20 97 Room Air 11/03/23 07:32 36.3 C L 73 18 151/82 H 90 Room Air 11/03/23 03:24 36.5 C 85 16 123/59 L 95 Room Air (4) Hypertension Hypertension type: unspecified Qualified Code(s): I10 - Essential (primary) hypertension
[2023-11-04 07:17] LABS: Basophils # (auto) 0.04 K/uL (0.00-0.20); Basophils % (auto) 0.7 %; Eosinophils # (auto) 0.12 K/uL (0.00-0.50); Eosinophils % (auto) 2.1 %; Hematocrit (blood only) 39.3 % (37.0-47.0); Hemoglobin 13.1 g/dl (12.0-16.0); Immature Granulocytes # (auto) 0.03 K/uL (0.01-0.20); Immature Granulocytes % (auto) 0.5 %; Lymphocytes # (auto) 0.89 K/uL (1.20-3.40); Lymphocytes % (auto) 15.8 %; Mean Corpuscular Hemoglobin 33.4 pg (25.0-34.0); Mean Corpuscular Hgb Conc 33.3 g/dL (32.0-36.0); Mean Corpuscular Volume 100.3 fL (80.0-100.0); Monocytes # (auto) 0.67 K/uL (0.11-0.59); Monocytes % (auto) 11.9 %; Neutrophils # (auto) 3.89 K/uL (1.40-6.50); Platelet Count 150 K/uL (130-400); RDW Coefficient of Variation 12.5 % (11.5-14.5); RDW Standard Deviation 46.3 fL (36.4-46.3); Red Blood Count 3.92 M/uL (4.20-5.40); White Blood Count 5.64 K/ul (4.8-10.8)
[2023-11-04 08:01] LABS: BUN Creatinine Ratio 19.8 (10-20); Calcium 8.8 mg/dl (8.6-10.3); Est GFR (African American) 72.4 ml/min; Est GFR (Non-African American) 62.5 ml/min; Magnesium 1.7 mg/dl (1.7-2.4); Phosphorus 4.2 mg/dl (2.5-4.9); Potassium 4.3 mmol/L (3.5-5.1)
--- NOTE | 2023-11-04 12:15 | Discharge Summary ---
Discharge Summary Date of Service November 04, 2023 Notes For Next Care Provider Pt with noted chronic strokes on head imaging. Consider outpatient Neurology follow up for secondary prevention/medication optimization as needed. Medication Changes From Visit cefdinir 300mg BID x 8 more days Admission HPI Per Admitting Provider She is an 81-year-old female with significant past medical history atrial fibrillation on Coumadin, aortic root enlargement, hypertension, hypothyroidism and chronic hyponatremia apparently has been complaining of not feeling well since last. She has had occasional dizziness with ambulation and also sweaty at times but no documented temperature and did not have any problem with urine or bowel habit. She has noted to be confused last evening and after discussion with the primary care doctor's office she was advised to come to the emergency room. Denies any numbness or tingling in the extremities, no visual symptoms, no weakness involving any side of the body and no history of fall or trauma. UA examination showed infection and she was admitted for continuation of care. Admission Exam Per Admitting Provider Physical Exam: Lying in bed without any acute distress Constitutional: well developed, well nourished, + ill appearing and + obese Eyes: PERRL, conjunctivae normal, anicteric sclerae ENMT: external ear and nose normal, oropharynx normal Neck: trachea midline, no thyromegaly Respiratory: no respiratory distress Auscultation: lungs clear to auscultation bilaterally Cardiovascular: Rate/Rhythm: regular rate and regular rhythm; not tachycardic Heart Sounds: normal S1, normal S2 and + murmur Extremities: no edema Gastrointestinal (Abdomen): Inspection/Auscultation: normal bowel sounds; abdomen not distended Percussion/Palpation: abdomen nontender Musculoskeletal: No acute arthritis involving any of the joint Neurologic: normal touch/pain/proprioception and moves all extremities; no focal motor deficits and not confused Lymphatic: no cervical or axillary lymphadenopathy Principal Dx & Hospital Course #1 = Principal Diagnosis (1) Encephalopathy due to infection: (2) Hypomagnesemia: (3) Hyponatremia: (4) Hypertension: (5) Acute UTI: (6) Atrial fibrillation: (7) Aortic root enlargement: Plan Pt is an 81-year-old female with past medical history significant for atrial fibrillation on Coumadin, aortic root enlargement, hypertension, hypothyroidism and chronic hyponatremia presenting with fatigue, generalized malaise and confusion. Acute metabolic/toxic Encephalopathy Complicated UTI Change in mental status Hx of CVA Mental status changes noted the day before admission Head CTx2 showed 5 mm hypodensity/calcification in the cerebellar hemisphere on the right side, given stability on repeat imaging less likely hemorrhage Also noted chronic strokes UA suggestive of infection, urine Cx grew 2 strains of E coli bacteria chronic hyponatremia mild, less likely cause Biofire negative Chest XRAY with no acute changes Treated with IV Rocephin x 2 days, discharged on po cefdinir for an additional 8 days Symptoms improved, currently back to baseline Delirium precautions. Frequent reorientation, avoid sedating medications PCP followup after discharge Pt with noted chronic strokes on head imaging. Consider Neurology follow up for medication optimization and secondary prevention Atrial fibrillation Rate currently controlled Continue current medications -on toprol xl 100mg bid, eliquis 5mg bid Aortic root enlargement History of aortic root enlargement Blood pressure should be controlled, see below Hypertension continue home lisinopril 20 mg daily, spironolactone 12.5mg, toprol xl 100mg bid Chronic hyponatremia Sodium level noted to be 130 on admission improving,132 on discharge Consider further outpt follow up Discharge Exam General: Alert, orientedx3. No acute distress Skin: No noted rashes or bruises Psych: Appropriate mood and affect Neuro: No gross deficits HEENT: NC/AT Chest: Nontender to palpation. CV: Irregular Resp: Breath sounds clear bilaterally, no increased effort of breathing. Abdomen: Soft, nontender, nondistended. Extremities: No edema in lower extremities bilaterally. Updated Medication List Medication Instructions Recorded Confirmed Type apixaban 5 mg tablet (Eliquis) 5 mg PO BID 11/01/23 11/01/23 History conjugated estrogens 0.625 mg 0.625 mg PO DAILY 11/01/23 11/01/23 History tablet (Premarin) levothyroxine 75 mcg tablet 75 mcg PO DAILY 11/01/23 11/01/23 History lisinopril 20 mg tablet 20 mg PO QAM 11/01/23 11/01/23 History metoprolol succinate 100 mg 100 mg PO BID 11/01/23 11/01/23 History tablet,extended release 24 hr spironolactone 25 mg tablet 12.5 mg PO DAILY 11/01/23 11/01/23 History cefdinir 300 mg capsule 300 mg PO BID #16 caps 11/04/23 Rx Hospital Stay Data Consultations 11/01/23 17:53 ED Decision to Admit Stat Diagnostic Imagining Performed 11/01/23 15:54 CT head/brain wo con Stat 11/02/23 08:00 CT Brain [CT head/brain wo con] Stat Chest X-Ray 11/01/23 15:54 XR chest 1V portable HISTORY: 82 years-old Female weakness acute weakness COMPARISON: None TECHNIQUE: AP view of the chest FINDINGS: Cardiac silhouette is enlarged. Mild right hemidiaphragmatic elevation. No pneumothorax, pleural effusion or lobar airspace consolidation. Mild nonspecific interstitial coarsening. IMPRESSION: 1. Cardiomegaly with mild nonspecific interstitial coarsening. 2. No airspace consolidation typical for pneumonia. ACT 112: Negative or not required by law. The above report was generated using voice recognition software. It may contain grammatical, syntax or spelling errors. Electronically signed by: Zhao Mejia M.D. 11/01/2023 4:[address] 11/01/23 15:54 CT SCAN OF THE BRAIN WITHOUT IV CONTRAST CLINICAL HISTORY: Change in mental status. COMPARISON STUDY: No priors. TECHNIQUE: Unenhanced axial CT scan of the brain is performed from the vertex to the skull base. A dose lowering technique was utilized adhering to the principles of ALARA. CT DOSE: 547.75 mGy.cm FINDINGS: Brain parenchyma: There is age-related involutional change noting moderate subcortical and periventricular microangiopathic disease. A 5 mm hyperdense focus in the right cerebellar hemisphere likely represents a calcification. Hemorrhages considered unlikely. No additional findings are suspicious for hemorrhage. There is no mass effect or evidence of acute territorial ischemia by CT criteria. Berg-white matter differentiation is preserved. Left temporal encephalomalacia is consistent with a remote insult. No extra-axial fluid collection is seen. Ventricles, sulci, cisterns: Prominent secondary to involutional change. Intracranial vasculature: There is atherosclerotic calcification of the cavernous carotid and vertebral arteries. Calvarium: Unremarkable. Sinuses and mastoids: The visualized paranasal sinuses are clear. The mastoid air cells are well pneumatized. Orbits: The bony orbits are grossly intact. IMPRESSION: 1. A 5 mm hyperdense focus in the right cerebellar hemisphere likely represents a calcification. A tiny focus of hemorrhage is considered much less likely. Correlate with any prior outside imaging studies. If no prior studies are available consider a 12 to 24 hour follow-up examination for reassessment. 2. No additional findings are suspicious for hemorrhage. There is no mass effect or evidence of acute territorial ischemia by CT criteria. ACT 112: Negative or not required by law. Electronically signed by: James Bull M.D. 11/01/2023 4:[address] 11/02/23 08:00 CT head/brain wo con CLINICAL HISTORY: 82 years-old Female with r/o bleed. Acute headache TECHNIQUE: Multiple axial CT images of the head were obtained without contrast. A dose lowering technique was utilized adhering to the principles of ALARA. CT DOSE: 547.75 mGy.cm COMPARISON: 11/01/2023 FINDINGS: No acute intracranial hemorrhage, midline shift, intracranial mass, hydrocephalus, territorial ischemia or abnormal extra-axial collection. Unchanged 5 mm right cerebellar calcification. Cerebral vascular calcifications. Involutional changes with chronic microvascular ischemic disease. 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 Probable lacunar infarct within the pontine brainstem on image 8 series 2. Left cerebellar encephalomalacia. The calvarium is intact. Prior bilateral lens repair. Indeterminate 10 mm soft tissue attenuating subcutaneous likely benign lesion within the superior right parietal scalp on image 23 series 3. The paranasal sinuses, mastoid air cells, and middle ear cavities are clear. IMPRESSION: 1. Unchanged 5 mm right cerebellar calcification. 2. Involutional changes with chronic microvascular ischemic disease. 3. Chronic left MCA infarct. 4. Age-indeterminate likely chronic subcentimeter pontine lacunar infarct. ACT 112: Negative or not required by law. The above report was generated using voice recognition software. It may contain grammatical, syntax or spelling errors. Electronically signed by: Zhao Mejia M.D. 11/02/2023 8:18 AM Pending Results Patient Have Any Pending Studies at Discharge: No Discharge Instructions Given to Patient (Per Discharging Provider) Ms. Townsend, You were admitted and treated for a severe urinary tract infection that we believe caused your presenting symptoms. We treated you with IV antibiotics and we are discharging you home with an oral form that will work against the bacteria that grew in your culture. Please take as prescribed. Please keep close follow up with your primary care provider after discharge. Please do not hesitate to come back to the emergency room if your symptoms worsen or return. It was a pleasure taking care of you while you were here. Total Time Total Time Spent Total Time Spent (In Minutes): > 30 minutes
== END 2023-11-04 13:36 | disposition home or self-care (01) | DRG 689 ==
LOC: ED 15:39 → SUATTDRO 18:29 → EDINP 18:29 → 2N 20:23

== ENCOUNTER 2024-12-26 03:45 | Inpatient (IN) ==
[2024-12-26 04:08] LABS: iSTAT Hemoglobin 12.6 g/dl (12.0-16.0); iSTAT Ionized Calcium 0.94 mmol/l (1.12-1.32); iSTAT Potassium 4.5 mmol/L (3.3-5.0)
[2024-12-26] MEDS: SODIUM CHLORIDE 0.9% 500 ML IV ONE (04:11)
[2024-12-26] MEDS: ACETAMINOPHEN 1,000 MG/100 ML VIAL IV STA (04:11)
--- NOTE | 2024-12-26 04:11 | Emergency Department Note ---
Impression & Plan Fall from standing, Hyponatremia, Acute UTI, Fracture of right third rib ED Provider Note NAME: KIKA GOEL AGE: 84 SEX: F : 1940 ARRIVES VIA: Ambulance INFORMANT: Patient ED PROVIDER(S): Paul Morse MD CHIEF COMPLAINT: Fall, trauma alert PLAN: Disposition: Admit MEDICAL DECISION MAKING: The patient is a pleasant 84-year-old woman with a past medical history of atrial fibrillation on Eliquis, hypertension who presents to the emergency department via EMS after having a fall at home with head strike. The patient lives in a basement apartment of her daughter's home. Trauma was activated in the field due to patient being on anticoagulation. Patient reports she had gotten up to go to the bathroom and felt lightheaded and fell hitting her head. Per the patient's daughter who did arrive to the bedside she reports that it is possible that the patient fell on her way to the bathroom but then ended up making it to the bathroom as she noticed there was blood in the bathroom but then went back to her bed and covered herself up but then called out for help using Marla. On evaluation patient is no acute distress, afebrile heart in 110s and blood pressure 150/90s vital signs otherwise stable. She has a hematoma of the left eyebrow with punctate wound where there was persistent venous bleeding. There is no midline CTL spine tenderness palpation or step-offs. Pelvis is stable. Patient has mild tenderness of the right anterior and lateral chest wall with light ecchymosis and no bony crepitus. No distracting injuries. EKG demonstrates atrial fibrillation without overt acute ischemia. CXR and pelvis XR negative for acute findings per my personal preliminary review/interpretation. WBC, hemoglobin and platelets within normal limits. Chemistry without metabolic acidosis. Sodium is 126 with normal glucose. CPK within normal limits. Lipase is not elevated. Serum osmolality 281 with urine osmolality 287 and so suspect hyponatremia may be related to component of poor solute intake. UA suspicious for infection with 4+ bacteria, WBCs and positive nitrites. Treatment initiated with IV ceftriaxone following review of prior urine culture. CT of the head, face, chest, abdomen pelvis as well as CT L-spine were performed. Traumatic finding limited tos nondisplaced right third anterior rib fracture. Vascular congestion is noted in the setting of the patient's atrial fibrillation. Additional suspected benign cystic lesion of the pancreatic head is noted. Case was discussed with Dr. Miranda, [facility], additional report reviewed with Kali Leblanc PA-C with justyn Sil[facility] who will evaluate the patient for admission. Further management per admitting team. Triage Nursing notes reviewed and agree them. Prior/external medical records reviewed Vital Signs: reviewed Differential diagnosis: Fracture, dislocation, contusion, intra-abdominal, pneumothorax, intrathoracic, intracranial, neurologic, compartment syndrome, rhabdomyolysis, as well as other pathologies. ER treatment provided: See below. Diagnostics interpreted by me: ECG: Atrial fibrillation, RVR, 108 bpm, intermittent PVC, no overt ST elevation or depression, QTc 450, QRS 100. Cardiac Monitoring: An order for continuous cardiac monitoring was placed and demonstrated Atrial fibrillation, RVR, 108 bpm, intermittent PVC Laboratory studies: See below Imaging studies: See below Consultation(s): Kali Leblanc PA-C [facility] HPI: Per MDM. ROS: See above HPI for pertinent positives & negatives. A total of 10 systems reviewed and were otherwise negative. VITALS:See Below PHYSICAL EXAMINATION: Primary Survey Airway: Intact Breathing: Normal, breath sounds equal bilaterally Circulation: Skin warm, distal pulses 2+, capillary refill less than 2 seconds Disability Pupils: Equal and reactive to light. GCS: 15, E = 5 V=5 M= 5 Motor Function: Moves all extremities. Sensory: No deficits Secondary Survey GEN: Well developed and well-nourished HEAD: Normocephalic. Hematoma of the left eyebrow with punctate wound where there was persistent venous bleeding. There is no midline CTL spine tenderness palpation or step-offs. Pelvis is stable. EYES: Pupils round reactive to light, conjunctiva clear, extraocular movements intact, no proptosis. ENT: No fluid in external acoustic canals, no hemotympanum, no kapadia's sign, nares patent, oropharynx clear NECK: No JVD, midline trachea, no cervical spine tenderness, No midline tenderness to palpation or step-offs. HEART: Regular rate and rhythm LUNGS: Clear to auscultation bilaterally. CHEST: Mild tenderness of the right anterior and lateral chest wall with light ecchymosis and no bony crepitus. ABD: No Garcia-Purvis's or Juventino's sign, soft, non-tender, no rebound or guarding, E-FAST scan: negative. PELVIS: Stable to rock BACK: No step offs or deformities, T-L spine non tender. No saddle anesthesia. EXT: 2+ global pulses, moving all extremities well, +5/5 muscle strength globally NEURO: Normal sensorium. Cranial nerves II-XII grossly intact. 5/5 strength and SILT x 4 extremities. Paul Morse MD Past Med/Surg History Problem List (Updated 12/26/24 @ 16:37 by Paul Morse MD) Generalized weakness Acute metabolic encephalopathy Fracture of right third rib (Acute) Acute UTI (Acute) Hyponatremia (Acute) Fall from standing (Acute) Medical History (Updated 12/26/24 @ 16:37 by Paul Morse MD) Chronic hyponatremia Hypertension Aortic root enlargement Atrial fibrillation Social History Smoking Status: Never smoker Hx Alcohol Use: Yes Alcohol type: wine Hx Substance Use: No Preferred Language: Lithuanian Communication Ability: Effective World Language Teacher Required: No Beliefs That Will Affect Care: None Current Living Situation: Family Current Living Situation Comment: Lives with daughter Feels Safe at Home: Yes Assistive Devices: Cane, Glasses and Stair Lift Allergies Allergies Allergy/AdvReac Type Severity Reaction Status Date / Time Sulfa (Sulfonamide Allergy Mild Unknown Verified 12/26/24 04:19 Antibiotics) Penicillins AdvReac Hives Verified 12/26/24 04:19 Home Meds Home Medications Medication Instructions Recorded Confirmed apixaban 5 mg tablet (Eliquis) 5 mg PO BID 11/01/23 12/26/24 conjugated estrogens 0.625 mg 0.625 mg PO DAILY 11/01/23 12/26/24 tablet (Premarin) levothyroxine 75 mcg tablet 75 mcg PO DAILY 11/01/23 12/26/24 lisinopril 20 mg tablet 20 mg PO QAM 11/01/23 12/26/24 metoprolol succinate 100 mg 100 mg PO BID 11/01/23 12/26/24 tablet,extended release 24 hr spironolactone 25 mg tablet 12.5 mg PO DAILY 11/01/23 12/26/24 cetirizine 10 mg tablet 10 mg PO DAILY PRN Allergic 12/26/24 12/26/24 Symptoms famotidine 20 mg tablet 20 mg PO BID PRN Acid Reflux 12/26/24 12/26/24 furosemide 20 mg tablet (Lasix) 20 mg PO DAILY PRN edema 12/26/24 12/26/24 Results & Data (ED) Vital Signs Vital Signs - 24 hr 12/26/24 03:38 12/26/24 03:50 12/26/24 03:54 Temperature 37.1 C 37.1 C Temperature Source Oral Oral Pulse Rate 106 H 111 H Pulse Rate [Apical] 105 H Pulse Rhythm Regular Pulse Rhythm [Apical] Regular Pulse Strength Normal Pulse Strength [Apical] Normal Respiratory Rate 17 18 Respiratory Effort / Characteristics Non-Labored Non-Labored Respiratory Depth Normal Normal Respiratory Pattern Regular Regular Blood Pressure 156/98 H Blood Pressure [Right Arm] 154/122 H Blood Pressure Mean 117 Blood Pressure Mean [Right Arm] 132 Blood Pressure Position Lying Blood Pressure Position [Right Arm] Lying Pulse Oximetry 97 97 Oxygen Delivery Method Room Air Room Air Oxygen Flow Rate Sepsis Recent Fever Within 48 Hours No Sepsis New/Unexplained Change in Mental Status No Sepsis Action Taken by Nursing No Action Required 12/26/24 03:54 12/26/24 03:54 12/26/24 04:27 Temperature 37.1 C Temperature Source Pulse Rate 105 H 105 H Pulse Rate [Apical] Pulse Rhythm Regular Pulse Rhythm [Apical] Pulse Strength Pulse Strength [Apical] Respiratory Rate 17 17 Respiratory Effort / Characteristics Respiratory Depth Respiratory Pattern Blood Pressure 154/122 H Blood Pressure [Right Arm] Blood Pressure Mean Blood Pressure Mean [Right Arm] Blood Pressure Position Blood Pressure Position [Right Arm] Pulse Oximetry 97 97 97 Oxygen Delivery Method Room Air Room Air Room Air Oxygen Flow Rate 0 Sepsis Recent Fever Within 48 Hours Sepsis New/Unexplained Change in Mental Status Sepsis Action Taken by Nursing 12/26/24 04:38 12/26/24 05:00 12/26/24 05:38 Temperature Temperature Source Pulse Rate Pulse Rate [Apical] 103 H 104 H 108 H Pulse Rhythm Pulse Rhythm [Apical] Regular Regular Pulse Strength Pulse Strength [Apical] Normal Normal Respiratory Rate 18 17 20 Respiratory Effort / Characteristics Non-Labored Spontaneous Non-Labored Spontaneous Non-Labored Spontaneous Respiratory Depth Normal Normal Normal Respiratory Pattern Regular Regular Regular Blood Pressure Blood Pressure [Right Arm] 163/103 H 145/110 H Blood Pressure Mean Blood Pressure Mean [Right Arm] 123 121 Blood Pressure Position Blood Pressure Position [Right Arm] Lying Lying Pulse Oximetry 97 97 96 Oxygen Delivery Method Room Air Room Air Room Air Oxygen Flow Rate Sepsis Recent Fever Within 48 Hours Sepsis New/Unexplained Change in Mental Status Sepsis Action Taken by Nursing 12/26/24 06:00 12/26/24 06:46 12/26/24 07:00 Temperature 36.8 C Temperature Source Oral Oral Pulse Rate Pulse Rate [Apical] 104 H 90 89 Pulse Rhythm Pulse Rhythm [Apical] Regular Pulse Strength Pulse Strength [Apical] Normal Respiratory Rate 20 18 20 Respiratory Effort / Characteristics Non-Labored Spontaneous Respiratory Depth Normal Respiratory Pattern Regular Blood Pressure Blood Pressure [Right Arm] 164/85 H 161/97 H 159/91 H Blood Pressure Mean Blood Pressure Mean [Right Arm] 111 118 113 Blood Pressure Position Blood Pressure Position [Right Arm] Lying Pulse Oximetry 96 96 97 Oxygen Delivery Method Room Air Room Air Room Air Oxygen Flow Rate Sepsis Recent Fever Within 48 Hours Sepsis New/Unexplained Change in Mental Status Sepsis Action Taken by Nursing 12/26/24 07:00 Temperature Temperature Source Pulse Rate Pulse Rate [Apical] 85 Pulse Rhythm Pulse Rhythm [Apical] Regular Pulse Strength Pulse Strength [Apical] Normal Respiratory Rate 20 Respiratory Effort / Characteristics Non-Labored Spontaneous Respiratory Depth Normal Respiratory Pattern Regular Blood Pressure Blood Pressure [Right Arm] 159/91 H Blood Pressure Mean Blood Pressure Mean [Right Arm] 113 Blood Pressure Position Blood Pressure Position [Right Arm] Lying Pulse Oximetry 98 Oxygen Delivery Method Room Air Oxygen Flow Rate Sepsis Recent Fever Within 48 Hours Sepsis New/Unexplained Change in Mental Status Sepsis Action Taken by Nursing Laboratory Data Attestation: I reviewed the patient's lab results. 12/26/24 03:54 12/26/24 09:00 Lab Results 12/26/24 12/26/24 12/26/24 Range/Units 03:51 03:54 03:56 WBC 5.36 (4.8-10.8) K/ul RBC 3.52 L (4.20-5.40) M/uL Hgb 12.4 (12.0-16.0) g/dl POC Hgb 12.6 (12.0-16.0) g/dl Hct 35.0 L (37.0-47.0) % POC Hct 37 (37-47) % MCV 99.4 (80.0-100.0) fL MCH 35.2 H (25.0-34.0) pg MCHC 35.4 (32.0-36.0) g/dL RDW Std Deviation 44.7 (36.4-46.3) fL RDW Coeff of Ethan 12.2 (11.5-14.5) % Plt Count 157 (130-400) K/uL MPV 9.4 (9.4-12.4) fL Immature Gran % (Auto) 0.4 % Neut % (Auto) 76.2 % Lymph % (Auto) 10.4 % [place] % (Auto) 11.6 % Eos % (Auto) 0.7 % Baso % (Auto) 0.7 % Neut # (Auto) 4.08 (1.40-6.50) K/uL Lymph # (Auto) 0.56 L (1.20-3.40) K/uL [place] # (Auto) 0.62 H (0.11-0.59) K/uL Eos # (Auto) 0.04 (0.00-0.50) K/uL Baso # (Auto) 0.04 (0.00-0.20) K/uL Immature Gran # (Auto) 0.02 (0.01-0.20) K/uL PT 11.2 (9.0-12.0) Seconds INR 1.0 (0.9-1.1) APTT 30 (21-31) Seconds PTT Ratio 1.1 POC Sodium 127 L (135-144) mmol/L Sodium 126 L (136-145) mmol/L POC Potassium 4.5 (3.3-5.0) mmol/L Potassium 4.4 (3.5-5.1) mmol/L POC Chloride 91 L (101-112) mmol/L Chloride 94 L (98-107) mmol/L Carbon Dioxide 25 (21-32) mmol/L POC Total CO2 23 L (24-31) mmol/L Anion Gap 7 (3-11) POC Anion Gap 19.0 (16-25) mmol/L POC BUN 11 (7-18) mg/dl BUN 13 (6-23) mg/dl Creatinine 0.88 (0.6-1.2) mg/dl POC Creatinine 1.0 (0.6-1.3) mg/dl Est Cr Clr Drug Dosing 48.2 ml/min eGFR 64.36 BUN/Creatinine Ratio 14.8 (10-20) Glucose 96 (70-99(Fasting)) mg/dl POC Glucose (other) 95 (70-99) mg/dl Osmolality 281 (280-300) mOsm/kg Calcium 8.7 (8.6-10.3) mg/dl POC Ioniz Calcium Marleny 0.94 L (1.12-1.32) mmol/l Total Bilirubin 0.4 (0.2-1.0) mg/dl AST 23 (13-39) U/L ALT 14 (7-52) U/L Alkaline Phosphatase 29 L (34-104) U/L Total Creatine Kinase 186 (26-192) U/L Total Protein 6.7 (6.0-8.3) gm/dl Albumin 3.5 (3.4-5.0) gm/dl Globulin 3.2 (2.5-4.0) gm/dl Albumin/Globulin Ratio 1.1 (0.9-2) Lipase 59 (11-82) U/L Urine Color Urine Appearance (Clear) Urine pH (4.5-7.5) Ur Specific [place] (1.000-1.030) Urine Protein (Negative) Urine Glucose (UA) (Negative) Urine Ketones (Negative) Urine Blood (Negative) Urine Nitrite (Negative) Urine Bilirubin (Negative) Urine Urobilinogen (Negative) Ur Leukocyte Esterase (Negative) Urine WBC (Auto) (0-5) /hpf Urine RBC (Auto) (0-2) /hpf U Hyaline Cast (Auto) (0-2) /lpf U Epithel Cells (Auto) (0-2) /hpf Urine Bacteria (Auto) (None Seen) Urine Yeast (None Prsent) Urine Osmolality (500-800) mOsm/kg Ur Random Sodium mmol/L Urine Comment 12/26/24 12/26/24 Range/Units 04:41 04:57 WBC (4.8-10.8) K/ul RBC (4.20-5.40) M/uL Hgb (12.0-16.0) g/dl POC Hgb (12.0-16.0) g/dl Hct (37.0-47.0) % POC Hct (37-47) % MCV (80.0-100.0) fL MCH (25.0-34.0) pg MCHC (32.0-36.0) g/dL RDW Std Deviation (36.4-46.3) fL RDW Coeff of Ethan (11.5-14.5) % Plt Count (130-400) K/uL MPV (9.4-12.4) fL Immature Gran % (Auto) % Neut % (Auto) % Lymph % (Auto) % [place] % (Auto) % Eos % (Auto) % Baso % (Auto) % Neut # (Auto) (1.40-6.50) K/uL Lymph # (Auto) (1.20-3.40) K/uL [place] # (Auto) (0.11-0.59) K/uL Eos # (Auto) (0.00-0.50) K/uL Baso # (Auto) (0.00-0.20) K/uL Immature Gran # (Auto) (0.01-0.20) K/uL PT (9.0-12.0) Seconds INR (0.9-1.1) APTT (21-31) Seconds PTT Ratio POC Sodium (135-144) mmol/L Sodium (136-145) mmol/L POC Potassium (3.3-5.0) mmol/L Potassium (3.5-5.1) mmol/L POC Chloride (101-112) mmol/L Chloride (98-107) mmol/L Carbon Dioxide (21-32) mmol/L POC Total CO2 (24-31) mmol/L Anion Gap (3-11) POC Anion Gap (16-25) mmol/L POC BUN (7-18) mg/dl BUN (6-23) mg/dl Creatinine (0.6-1.2) mg/dl POC Creatinine (0.6-1.3) mg/dl Est Cr Clr Drug Dosing ml/min eGFR BUN/Creatinine Ratio (10-20) Glucose (70-99(Fasting)) mg/dl POC Glucose (other) (70-99) mg/dl Osmolality (280-300) mOsm/kg Calcium (8.6-10.3) mg/dl POC Ioniz Calcium Marleny (1.12-1.32) mmol/l Total Bilirubin (0.2-1.0) mg/dl AST (13-39) U/L ALT (7-52) U/L Alkaline Phosphatase (34-104) U/L Total Creatine Kinase (26-192) U/L Total Protein (6.0-8.3) gm/dl Albumin (3.4-5.0) gm/dl Globulin (2.5-4.0) gm/dl Albumin/Globulin Ratio (0.9-2) Lipase (11-82) U/L Urine Color Yellow Urine Appearance Cloudy A (Clear) Urine pH 6.5 (4.5-7.5) Ur Specific [place] 1.015 (1.000-1.030) Urine Protein Negative (Negative) Urine Glucose (UA) Negative (Negative) Urine Ketones Negative (Negative) Urine Blood 2+ H (Negative) Urine Nitrite Positive A (Negative) Urine Bilirubin Negative (Negative) Urine Urobilinogen Negative (Negative) Ur Leukocyte Esterase 1+ H (Negative) Urine WBC (Auto) 11-20 H (0-5) /hpf Urine RBC (Auto) >20 H (0-2) /hpf U Hyaline Cast (Auto) 0-2 (0-2) /lpf U Epithel Cells (Auto) 6-10 H (0-2) /hpf Urine Bacteria (Auto) 4+ H (None Seen) Urine Yeast Present A (None Prsent) Urine Osmolality 287 L (500-800) mOsm/kg Ur Random Sodium 68 mmol/L Urine Comment Administered Medications Acetaminophen (Acetaminophen 500 Mg Tab) 1,000 mg PO Q8H [facility] Stop: 01/25/25 15:51 Last Admin: 12/26/24 16:00 Dose: 1,000 mg Documented By: [facility] Famotidine (Famotidine 20 Mg Tab) 20 mg PO BID PRN PRN Reason: Acid Reflux Stop: 01/25/25 08:18 Last Admin: 12/26/24 10:46 Dose: 20 mg Documented By: MTP Oxycodone HCl (Oxycodone Hcl Ir 5 Mg Tab (Immediate Release)) 5 mg PO Q6H PRN PRN Reason: Moderate Pain (Scale 4, 5, 6) Stop: 01/09/25 09:16 Last Admin: 12/26/24 10:45 Dose: 5 mg Documented By: MTP Discontinued Medications Estrogens Conjugated (Estrogens, Conjugated 0.625 Mg Tab) 0.625 mg PO NOW STA Stop: 12/26/24 09:02 Last Admin: 12/26/24 10:47 Dose: 0.625 mg Documented By: KAYKAY Gelatin (Gelatin Sponge 12-7mm) Confirm Administered Dose 1 each .ROUTE .STK-MED ONE Stop: 12/26/24 03:53 Last Admin: 12/26/24 04:28 Dose: 1 each Documented By: RUSTAM Sodium Chloride (Nss) 500 mls @ 999 mls/hr IV .Q31M ONE Stop: 12/26/24 04:24 Last Infusion: 12/26/24 05:54 Dose: Infused Documented By: Admin: 12/26/24 04:11 Dose: 999 mls/hr Documented By: RUSTAM Acetaminophen (Ofirmev) 1,000 mg in 100 mls @ 400 mls/hr IV NOW STA Stop: 12/26/24 04:08 Last Infusion: 12/26/24 05:54 Dose: Infused Documented By: Admin: 12/26/24 04:11 Dose: 400 mls/hr Documented By: RUSTAM Ceftriaxone Sodium (Rocephin) 2,000 mg in 50 mls @ 100 mls/hr IV NOW STA Stop: 12/26/24 06:56 Last Infusion: 12/26/24 07:19 Dose: Infused Documented By: Admin: 12/26/24 06:40 Dose: 100 mls/hr Documented By: KIMO Ioversol (Optiray 320 100ml) 100 ml IV ONCE ONE Stop: 12/26/24 04:33 Last Admin: 12/26/24 04:32 Dose: 93 ml Documented By: RAF Levothyroxine Sodium (Levothyroxine Sodium 75 Mcg Tablet) 75 mcg PO NOW STA Stop: 12/26/24 09:05 Last Admin: 12/26/24 10:48 Dose: 75 mcg Documented By: KAYKAY Lisinopril (Lisinopril 20 Mg Tab) 20 mg PO NOW STA Stop: 12/26/24 09:02 Last Admin: 12/26/24 10:47 Dose: 20 mg Documented By: KAYKAY Metoprolol Succinate (Metoprolol Succ 50mg Ext Rel Tab) 100 mg PO NOW STA Stop: 12/26/24 09:03 Last Admin: 12/26/24 10:48 Dose: 100 mg Documented By: KAYKAY Morphine Sulfate (Morphine Sulfate 2 Mg/Ml Carp) 2 mg IV NOW STA Stop: 12/26/24 05:34 Last Admin: 12/26/24 05:53 Dose: 2 mg Documented By: PAG Imaging Data Radiologist's Impression: Chest X-Ray 12/26/24 03:54 EXAM: XR chest 1V portable CLINICAL HISTORY: Trauma TECHNIQUE: An X-ray image of the chest is obtained in AP projection. COMPARISON: prior Cr 11/01/2023 FINDINGS: Pulmonary Parenchyma: Lungs are clear bilaterally. No evidence of consolidation, collapse, or focal opacities. No pulmonary nodules are identified. Haziness is seen in the left lower zone, obscuring the left costophrenic angle. Heart and Mediastinum: Mild cardiomegaly ( unchanged ) No mediastinal widening or masses. No hilar or mediastinal lymphadenopathy. Bony Thorax: Bony thorax appears intact without fractures or deformities. Soft Tissues: Soft tissues overlying the chest wall are unremarkable. IMPRESSION: 1. Haziness is seen in the left lower zone, obscuring the left costophrenic angle, likely positional however, clinical and lab correlation is advised to rule out pulmonary infection. 2. No significant interval changes. Electronically signed by Jonathan Langley 12-26-2024 04:[address] 12/26/24 03:54 EXAM: CT lumbar spine w con CLINICAL HISTORY: Trauma TECHNIQUE: CT scan of the lumbar spine was performed following the intravenous administration of iodinated contrast material. Contiguous axial images were obtained from the upper lumbar spine to the sacrum. Coronal and sagittal reformatted images were also reviewed. One of the following dose reduction techniques was utilized for this exam. Automated exposure control, adjustment of the mA and/or kV according to patient size, and use of iterative reconstruction. DLP: 3375.15 mGy.cm COMPARISON: No previous studies are available for comparison. FINDINGS: Vertebrae: Mild scoliosis of the lumbar spine with jovana angle of 15° and convexity towards the left. Sclerotic changes of the endplates of L2-L3 (could indicate bone marrow changes, which may require MRI to do better evaluation). Mild retrolisthesis of L2 over L3. Mild anterolisthesis of L4 over L5. The vertebral bodies are normal in height. Marginal osteophytes are seen. Reduced intervertebral disc spaces seen at multiple levels with vacuum phenomenon. Significantly reduced L2-L3 intervertebral disc space with endplate sclerosis. No evidence of acute fracture or dislocation. Generalized reduced bone density. No signs of lytic or sclerotic lesions. Normal configuration of the posterior elements. Facet Joints: Facet joint arthropathy seen. Neural Foramina: Multilevel diffuse disc bulge is seen causing ventral thecal sac indentation with bilateral neural foraminal narrowing. Paraspinal Soft Tissues: The paraspinal soft tissues are normal in appearance, without evidence of mass or abnormal fluid collection. Post-Contrast Evaluation: No abnormal enhancement is observed in the lumbar spine, surrounding soft tissues, or paraspinal regions. No evidence of epidural abscess or phlegmon. Diffuse atherosclerotic changes of abdominal aorta. Additional Findings: No other significant findings are noted in the visualized soft tissue structures or bony elements. IMPRESSION: 1. No acute fracture seen. 2. Moderate lumbar spondylosis. Osteopenia. 3. Multilevel diffuse disc bulges seen causing ventral thecal sac indentation with bilateral neural foraminal narrowing. MRI lumbar spine is advised if clinically indicated. 4. No significant abnormal post-contrast enhancement. Electronically signed by Jonathan Langley 12-26-2024 06:15 AM Pelvis X-Ray 12/26/24 03:54 EXAM: XR pelvis 1-2V routine CLINICAL HISTORY: Trauma TECHNIQUE: X-ray images of the pelvis were obtained in anteroposterior (AP) projection. COMPARISON: No prior studies available for comparison. FINDINGS: Bone Structure: Pelvic bones, including the iliac wings, ischium, pubis, and sacrum, are normal and intact. No evidence of fractures, dislocations, or significant osseous lesions. Hip Joints: Hip joints are normal with preserved joint spaces. No evidence of hip dislocation, subluxation, or significant degenerative changes. Acetabulum: Acetabular structures appear normal and intact. No signs of acetabular fracture or dysplasia. Symphysis Pubis: Symphysis pubis is normal and intact. No evidence of separation or widening. Sacroiliac Joints: Mild bilateral narrowing, irregularity with end plates sclerosis. Soft Tissues: Visualized soft tissues are normal and unremarkable. No soft tissue swelling, calcifications, or masses. Additional Findings: No other significant abnormalities were noted. IMPRESSION: 1. No evidence of acute fractures or dislocations. 2. Mild bilateral degenerative sacroiliits Disclaimer: A subtle bone abnormality or fracture may not be readily apparent on X-rays, thus clinical correlation and further imaging including follow-up CT, MRI, or follow-up X-rays are advised as needed. Electronically signed by Jonathan Langley 12-26-2024 04:[address] 12/26/24 03:54 EXAM: CT thoracic spine w con CLINICAL HISTORY: trauma TECHNIQUE: Multiple axial images of CT thoracic spine with contrast was submitted in bone and soft tissue window. 93 ml optiray 320 intravenous contrast was administered for post contrast images. One of the following dose reduction techniques were utilized for this exam: Automated exposure control, adjustment of the mA and/or kV according to patient size, and use of iterative reconstruction. DLP: 3375.15 mGy.cm COMPARISON: None. FINDINGS: Vertebrae: Normal alignment of the thoracic vertebrae. No fractures, lytic or sclerotic lesions. Normal bone density without evidence of osteopenia or osteoporosis. Intervertebral Discs: Mild intervertebral decrease spaces with anterior osteophytes formation, indicating chronic degenerative changes. Lower cervical vertebrae show intervertebral degenerative changes with enplates sclerotic changes. No evidence of disc herniation, bulging, or significant degeneration. Spinal Canal and Neural Foramina: The spinal canal is of normal caliber with no evidence of spinal stenosis. Neural foramina are patent bilaterally at all levels. No evidence of nerve root compression. Facet Joints: Normal appearance of the facet joints. No evidence of facet arthropathy or significant degenerative changes. Soft Tissues: Bilateral signs of pulmonary congestion (interstitial thickening, and ground-glass pattern mainly of lower lobes). Normal appearance of the paraspinal soft tissues. No abnormal masses, fluid collections, or signs of inflammation. Vascular Structures: Ascending aorta aneurysmal dilatation (about 46 mm in diameter). Multiple atherosclerotic plaques of the aortic murphy. Normal appearance and enhancement of the thoracic aorta and other major vessels. No evidence of dissection, or significant stenosis. IMPRESSION: 1. No fracture or dislocation. 2. Aneurysmal dilatation of the ascending aorta (about 46 mm). 3. Multilevel intervertebral degenerative changes, mainly in lower thoracic spine and the lower cervical spine. 4. Signs of pulmonary congestion. Electronically signed by Jonathan Langley 12-26-2024 05:58 AM Abdomen/Pelvis CT 12/26/24 03:55 EXAM: CT abd pelvis IV con only CLINICAL HISTORY: Trauma TECHNIQUE: Contiguous axial images were obtained from the level of the diaphragm to the pubic symphysis with intravenous contrast. Coronal and sagittal reconstructions were likewise performed and indicated to increase the sensitivity for detecting clinically relevant pathology. If IV contrast material had not been administered, the likelihood of detecting abnormalities relevant to the patient's condition would have been substantially decreased. CT scan was performed according to ALARA (as low as reasonable achievable). COMPARISON: None. FINDINGS: Cardiomegaly noted. Dilated IVC and hepatic veins with mild hepatic congestion is seen. No focal liver lesions are seen. There is no intra or extrahepatic biliary ductal dilatation. Hepatic vasculature is patent. The gallbladder is present. Well defined cystic lesion of size 3.7 x 2.6 cm is noted cranial to the pancreatic head extending up to the hepatic arleth and undersurface of the left lobe of liver. No fat planes with any of the structure is noted. It appears to be insinuating between the left lobe of the liver and the caudate lobe. Findings likely suggestive of benign cystic lesion. Possible differentials include lymphatic malformation /exophytic hepatic cyst. Correlation with the prior study/follow up is suggested. The spleen, pancreas, and adrenal glands are unremarkable. The kidneys are normal in size and attenuation. There is no hydronephrosis or perinephric fat stranding. No renal calculi or renal masses are identified. The ureters are normal in caliber and no ureteral calculi are seen. The bladder is normal in contour. Pelvic viscera are unremarkable. No focal or diffuse bowel wall thickening or evidence of bowel obstruction is identified. The appendix is visualized in the right lower quadrant and appears within normal limits. Abdominal and pelvic vasculature is patent. No adenopathy or fluid collections are seen. No aggressive appearing osseous lesions are identified. Multiple small uncomplicated sigmoid colonic diverticulosis Diffuse atherosclerotic calcification is noted involving aorta iliac arteries. IMPRESSION: 1. Cardiomegaly noted. 2. Dilated IVC and hepatic veins with mild hepatic congestion is seen. 3. Multiple small uncomplicated sigmoid colonic diverticulosis 4. Well defined cystic lesion of size 3.7 x 2.6 cm is noted cranial to the pancreatic head extending up to the hepatic arleth and undersurface of the left lobe of liver as described. Findings likely suggestive of benign cystic lesion. Possible differentials include lymphatic malformation /exophytic hepatic cyst. Correlation with the prior study/follow up is suggested. 5. NO Trauma related abnormality seen. Electronically signed by Roderick Contreras 12-26-2024 06:[address] 12/26/24 03:55 EXAM: CT cervical spine wo con CLINICAL HISTORY: Trauma TECHNIQUE: CT scan of the cervical spine was performed without the administration of intravenous contrast. Contiguous axial images were obtained from the skull base to the upper thoracic spine. Coronal and sagittal reformatted images were also reviewed. One of the following dose reduction techniques was utilized for this exam. Automated exposure control, adjustment of the mA and/or kV according to patient size, and use of iterative reconstruction. (CTDI: 37.61 mGy, DLP: 3375.15 mGy*cm) COMPARISON: No previous studies are available for comparison. FINDINGS: Straightened cervical lordosis, suggesting muscle spasm. No acute fracture or dislocation. Minimal anterolisthesis of C3 and C7 vertebral bodies. Degenerative changes in the cervical spine as evidenced by marginal osteophytosis. Reduced intervertebral disc spaces at multiple levels of the cervical spine. No vertebral wedging or collapse. C4/C5, C5/C6, and C6-C7 posterior disc osteophyte complexes are seen indenting the thecal sac and encroaching upon corresponding neural exit foramina and exiting nerve roots bilaterally, most evident at C5/C6 level. Degenerative changes at the atlantoaxial articulation. Degenerative changes at multiple facets and uncovertebral joints bilaterally. Reduced bone density. No suspicious sclerotic or lytic bony lesions. Prevertebral and para-vertebral soft tissues are unremarkable. IMPRESSION: 1. No acute fracture or dislocation. 2. Multilevel cervical spondylotic changes. MRI may be recommended for further evaluation. Electronically signed by Jonathan Langley 12-26-2024 05:[address] 12/26/24 03:55 EXAM: CT chest diagnostic w con CLINICAL HISTORY: Trauma TECHNIQUE: Contiguous axial images were obtained from the neck base through the upper abdomen following intravenous administration of contrast material. If IV contrast material had not been administered, the likelihood of detecting abnormalities relevant to the patient's condition would have been substantially decreased. In addition, sagittal and coronal reconstructions were performed. CT scan was performed according to ALARA (as low as reasonable achievable). COMPARISON: None. FINDINGS: Aneurysmal dilatation of ascending aorta with maximum diameter measures about 45 mm. Old linear fracture is noted involving anterior end of right 3rd rib. Old united fracture with callus formation is noted involving left 11th rib. Cardiomegaly noted. Mild bilateral interstitial septal thickening is noted involving bilateral upper and lower lobes, possible congestion/interstitial edema. Multiple calcified as well as non-calcified atheromatous plaques are noted involving visualized aorta. Rest of lungs are clear The central airways are patent. There are no pleural effusions. No pneumothorax is seen. No axillary, hilar, or mediastinal adenopathy is identified. The visualized thyroid is unremarkable. The Rest of aorta, and pulmonary arteries are of normal size and configuration. No pericardial effusion is identified. Imaged portions of the upper abdomen are unremarkable. No aggressive appearing osseous lesions are identified. IMPRESSION: 1. dilatation of ascending aorta with maximum diameter measures about 45 mm. 2. linear fracture is noted involving anterior end of right 3rd rib. 3. Old united fracture is noted involving left 11th rib. 4. Cardiomegaly. 5. Mild bilateral interstitial septal thickening is noted involving bilateral upper and lower lobes, possible congestion/interstitial edema. Electronically signed by Roderick Contreras 12-26-2024 06:[address] 12/26/24 03:55 EXAM: CT head/brain wo con CLINICAL HISTORY: trauma TECHNIQUE: Multiple axial images are obtained from the skull base to the vertex without contrast. CT scan was performed according to ALARA (as low as reasonable achievable). COMPARISON: 11/02/2023 06:54:48 [employer]IENT [employer] . FINDINGS: There is cerebral atrophy. No evidence of space occupying lesion, hemorrhage, edema, mass effect, midline shift, extra axial collection, or hydrocephalus is noted. Basal cisterns are symmetric and normal in size and configuration. There are scattered periventricular hypodensities as can be seen with chronic microvascular ischemic changes. The salcedo-white matter differentiation is preserved. Visualized paranasal sinuses and mastoid air cells are well aerated. Orbital contents are within normal limits. Bony structures are intact. Rest unchanged. IMPRESSION: 1. No evidence of acute intracranial abnormality is demonstrated. 2. Chronic microvascular ischemic changes.-stable. 3. Cerebral atrophy.-stable. Electronically signed by Roderick Contreras 12-26-2024 05:[address] 12/26/24 03:56 EXAM: CT facial bones wo con CLINICAL HISTORY: Trauma TECHNIQUE: Computed tomography of the orbits/face was performed without intravenous contrast. Contiguous axial images were obtained. Reformatted coronal and sagittal images were also reviewed. CT scan was performed according to ALARA (as low as reasonable achievable). COMPARISON: none. FINDINGS: No acute facial fractures. Left maxillary sinusitis. Rest of paranasal sinuses and mastoid air cells are clear. The globes, optic nerves, extraocular muscles and retro-orbital fat are grossly unremarkable. Reformatted imaging demonstrates intact roof and floor of the orbits. Included portions of the mandible are intact. The included intracranial substances and airway are unremarkable. IMPRESSION: No acute facial fractures. Left maxillary sinusitis. Electronically signed by Roderick Contreras 12-26-2024 05:41 AM Discharge Plan Visit Data Chief Complaint: Trauma Stated Complaint: FALL, BLOOD THINNERS, HIT HEAD ED Provider: Paul Morse Discharge Problem: Fall from standing, Hyponatremia, Acute UTI, Fracture of right third rib Patient Disposition: Admitted As Inpatient Condition: Fair Discharge Instructions Interventions: ED Discharge Assessment Last Done: 12/26/24 09:09 Discharge Problem: Fall from standing Qualifiers: Encounter type: initial encounter Qualified Code(s): W19.XXXA - Unspecified fall, initial encounter
[2024-12-26 04:20] LABS: Basophils # (auto) 0.04 K/uL (0.00-0.20); Basophils % (auto) 0.7 %; Eosinophils # (auto) 0.04 K/uL (0.00-0.50); Eosinophils % (auto) 0.7 %; Hemoglobin 12.4 g/dl (12.0-16.0); Immature Granulocytes # (auto) 0.02 K/uL (0.01-0.20); Immature Granulocytes % (auto) 0.4 %; Lymphocytes # (auto) 0.56 K/uL (1.20-3.40); Lymphocytes % (auto) 10.4 %; Mean Corpuscular Hemoglobin 35.2 pg (25.0-34.0); Mean Corpuscular Hgb Conc 35.4 g/dL (32.0-36.0); Mean Corpuscular Volume 99.4 fL (80.0-100.0); Mean Platelet Volume 9.4 fL (9.4-12.4); Monocytes # (auto) 0.62 K/uL (0.11-0.59); Monocytes % (auto) 11.6 %; Neutrophils # (auto) 4.08 K/uL (1.40-6.50); Neutrophils % (auto) 76.2 %; Platelet Count 157 K/uL (130-400); RDW Coefficient of Variation 12.2 % (11.5-14.5); RDW Standard Deviation 44.7 fL (36.4-46.3); Red Blood Count 3.52 M/uL (4.20-5.40); White Blood Count 5.36 K/ul (4.8-10.8)
[2024-12-26 04:26] LABS: Albumin Level 3.5 gm/dl (3.4-5.0); Bilirubin,Total 0.4 mg/dl (0.2-1.0); Calcium 8.7 mg/dl (8.6-10.3); Potassium 4.4 mmol/L (3.5-5.1)
[2024-12-26 04:28] LABS: Partial Thromboplastin Ratio 1.1; Partial Thromboplastin Time 30 Seconds (21-31); Prothrombin Time 11.2 Seconds (9.0-12.0)
[2024-12-26] MEDS: GELATIN SPONGE 12-7MM ONE (04:28)
[2024-12-26 04:32] LABS: Albumin Globulin Ratio 1.1 (0.9-2); BUN Creatinine Ratio 14.8 (10-20); Creatinine Clr Calc Pharmacy 48.2 ml/min; Globulin 3.2 gm/dl (2.5-4.0); Total Protein 6.7 gm/dl (6.0-8.3)
[2024-12-26] MEDS: OPTIRAY 320 100ml IV ONE (04:32)
--- NOTE | 2024-12-26 04:43 | XRay Report ---
EXAM: XR pelvis 1-2V routine CLINICAL HISTORY: Trauma TECHNIQUE: X-ray images of the pelvis were obtained in anteroposterior (AP) projection. COMPARISON: No prior studies available for comparison. FINDINGS: Bone Structure: Pelvic bones, including the iliac wings, ischium, pubis, and sacrum, are normal and intact. No evidence of fractures, dislocations, or significant osseous lesions. Hip Joints: Hip joints are normal with preserved joint spaces. No evidence of hip dislocation, subluxation, or significant degenerative changes. Acetabulum: Acetabular structures appear normal and intact. No signs of acetabular fracture or dysplasia. Symphysis Pubis: Symphysis pubis is normal and intact. No evidence of separation or widening. Sacroiliac Joints: Mild bilateral narrowing, irregularity with end plates sclerosis. Soft Tissues: Visualized soft tissues are normal and unremarkable. No soft tissue swelling, calcifications, or masses. Additional Findings: No other significant abnormalities were noted. IMPRESSION: 1. No evidence of acute fractures or dislocations. 2. Mild bilateral degenerative sacroiliits Disclaimer: A subtle bone abnormality or fracture may not be readily apparent on X-rays, thus clinical correlation and further imaging including follow-up CT, MRI, or follow-up X-rays are advised as needed. Electronically signed by Jonathan Langley 12-26-2024 04:42 AM
--- NOTE | 2024-12-26 04:58 | XRay Report ---
EXAM: XR chest 1V portable CLINICAL HISTORY: Trauma TECHNIQUE: An X-ray image of the chest is obtained in AP projection. COMPARISON: prior Cr 11/01/2023 FINDINGS: Pulmonary Parenchyma: Lungs are clear bilaterally. No evidence of consolidation, collapse, or focal opacities. No pulmonary nodules are identified. Haziness is seen in the left lower zone, obscuring the left costophrenic angle. Heart and Mediastinum: Mild cardiomegaly ( unchanged ) No mediastinal widening or masses. No hilar or mediastinal lymphadenopathy. Bony Thorax: Bony thorax appears intact without fractures or deformities. Soft Tissues: Soft tissues overlying the chest wall are unremarkable. IMPRESSION: 1. Haziness is seen in the left lower zone, obscuring the left costophrenic angle, likely positional however, clinical and lab correlation is advised to rule out pulmonary infection. 2. No significant interval changes. Electronically signed by Jonathan Langley 12-26-2024 04:57 AM
[2024-12-26 05:16] LABS: Appearance Urine Cloudy (Clear); Bacteria Urine Automated 4+ (None Seen); Bilirubin Urine Negative (Negative); Blood Urine 2+ (Negative); Cast Urine Automated 0-2 /lpf (0-2); Color Urine Yellow; Glucose Urine UA Negative (Negative); Ketones Urine Negative (Negative); Leukocyte Esterase Urine 1+ (Negative); Nitrite Urine Positive (Negative); Protein Urine Negative (Negative); RBC Urine Automated >20 /hpf (0-2); Specific Gravity Urine 1.015 (1.000-1.030); Urobilinogen Urine Negative (Negative); pH Urine 6.5 (4.5-7.5)
--- NOTE | 2024-12-26 05:43 | CT Scan Report ---
EXAM: CT facial bones wo con CLINICAL HISTORY: Trauma TECHNIQUE: Computed tomography of the orbits/face was performed without intravenous contrast. Contiguous axial images were obtained. Reformatted coronal and sagittal images were also reviewed. CT scan was performed according to ALARA (as low as reasonable achievable). COMPARISON: none. FINDINGS: No acute facial fractures. Left maxillary sinusitis. Rest of paranasal sinuses and mastoid air cells are clear. The globes, optic nerves, extraocular muscles and retro-orbital fat are grossly unremarkable. Reformatted imaging demonstrates intact roof and floor of the orbits. Included portions of the mandible are intact. The included intracranial substances and airway are unremarkable. IMPRESSION: No acute facial fractures. Left maxillary sinusitis. Electronically signed by Roderick Contreras 12-26-2024 05:41 AM
--- NOTE | 2024-12-26 05:44 | CT Scan Report ---
EXAM: CT head/brain wo con CLINICAL HISTORY: trauma TECHNIQUE: Multiple axial images are obtained from the skull base to the vertex without contrast. CT scan was performed according to ALARA (as low as reasonable achievable). COMPARISON: 11/02/2023 06:54:48 [employer] . FINDINGS: There is cerebral atrophy. No evidence of space occupying lesion, hemorrhage, edema, mass effect, midline shift, extra axial collection, or hydrocephalus is noted. Basal cisterns are symmetric and normal in size and configuration. There are scattered periventricular hypodensities as can be seen with chronic microvascular ischemic changes. The salcedo-white matter differentiation is preserved. Visualized paranasal sinuses and mastoid air cells are well aerated. Orbital contents are within normal limits. Bony structures are intact. Rest unchanged. IMPRESSION: 1. No evidence of acute intracranial abnormality is demonstrated. 2. Chronic microvascular ischemic changes.-stable. 3. Cerebral atrophy.-stable. Electronically signed by Roderick Contreras 12-26-2024 05:44 AM
--- NOTE | 2024-12-26 05:46 | CT Scan Report ---
EXAM: CT cervical spine wo con CLINICAL HISTORY: Trauma TECHNIQUE: CT scan of the cervical spine was performed without the administration of intravenous contrast. Contiguous axial images were obtained from the skull base to the upper thoracic spine. Coronal and sagittal reformatted images were also reviewed. One of the following dose reduction techniques was utilized for this exam. Automated exposure control, adjustment of the mA and/or kV according to patient size, and use of iterative reconstruction. (CTDI: 37.61 mGy, DLP: 3375.15 mGy*cm) COMPARISON: No previous studies are available for comparison. FINDINGS: Straightened cervical lordosis, suggesting muscle spasm. No acute fracture or dislocation. Minimal anterolisthesis of C3 and C7 vertebral bodies. Degenerative changes in the cervical spine as evidenced by marginal osteophytosis. Reduced intervertebral disc spaces at multiple levels of the cervical spine. No vertebral wedging or collapse. C4/C5, C5/C6, and C6-C7 posterior disc osteophyte complexes are seen indenting the thecal sac and encroaching upon corresponding neural exit foramina and exiting nerve roots bilaterally, most evident at C5/C6 level. Degenerative changes at the atlantoaxial articulation. Degenerative changes at multiple facets and uncovertebral joints bilaterally. Reduced bone density. No suspicious sclerotic or lytic bony lesions. Prevertebral and para-vertebral soft tissues are unremarkable. IMPRESSION: 1. No acute fracture or dislocation. 2. Multilevel cervical spondylotic changes. MRI may be recommended for further evaluation. Electronically signed by Jonathan Langley 12-26-2024 05:46 AM
[2024-12-26] MEDS: MoRPHine SULFATE 2 MG/ML CARP IV STA (05:53)
--- NOTE | 2024-12-26 05:58 | CT Scan Report ---
EXAM: CT thoracic spine w con CLINICAL HISTORY: trauma TECHNIQUE: Multiple axial images of CT thoracic spine with contrast was submitted in bone and soft tissue window. 93 ml optiray 320 intravenous contrast was administered for post contrast images. One of the following dose reduction techniques were utilized for this exam: Automated exposure control, adjustment of the mA and/or kV according to patient size, and use of iterative reconstruction. DLP: 3375.15 mGy.cm COMPARISON: None. FINDINGS: Vertebrae: Normal alignment of the thoracic vertebrae. No fractures, lytic or sclerotic lesions. Normal bone density without evidence of osteopenia or osteoporosis. Intervertebral Discs: Mild intervertebral decrease spaces with anterior osteophytes formation, indicating chronic degenerative changes. Lower cervical vertebrae show intervertebral degenerative changes with enplates sclerotic changes. No evidence of disc herniation, bulging, or significant degeneration. Spinal Canal and Neural Foramina: The spinal canal is of normal caliber with no evidence of spinal stenosis. Neural foramina are patent bilaterally at all levels. No evidence of nerve root compression. Facet Joints: Normal appearance of the facet joints. No evidence of facet arthropathy or significant degenerative changes. Soft Tissues: Bilateral signs of pulmonary congestion (interstitial thickening, and ground-glass pattern mainly of lower lobes). Normal appearance of the paraspinal soft tissues. No abnormal masses, fluid collections, or signs of inflammation. Vascular Structures: Ascending aorta aneurysmal dilatation (about 46 mm in diameter). Multiple atherosclerotic plaques of the aortic murphy. Normal appearance and enhancement of the thoracic aorta and other major vessels. No evidence of dissection, or significant stenosis. IMPRESSION: 1. No fracture or dislocation. 2. Aneurysmal dilatation of the ascending aorta (about 46 mm). 3. Multilevel intervertebral degenerative changes, mainly in lower thoracic spine and the lower cervical spine. 4. Signs of pulmonary congestion. Electronically signed by Jonathan Langley 12-26-2024 05:58 AM
--- NOTE | 2024-12-26 06:05 | CT Scan Report ---
EXAM: CT chest diagnostic w con CLINICAL HISTORY: Trauma TECHNIQUE: Contiguous axial images were obtained from the neck base through the upper abdomen following intravenous administration of contrast material. If IV contrast material had not been administered, the likelihood of detecting abnormalities relevant to the patient's condition would have been substantially decreased. In addition, sagittal and coronal reconstructions were performed. CT scan was performed according to ALARA (as low as reasonable achievable). COMPARISON: None. FINDINGS: Aneurysmal dilatation of ascending aorta with maximum diameter measures about 45 mm. Old linear fracture is noted involving anterior end of right 3rd rib. Old united fracture with callus formation is noted involving left 11th rib. Cardiomegaly noted. Mild bilateral interstitial septal thickening is noted involving bilateral upper and lower lobes, possible congestion/interstitial edema. Multiple calcified as well as non-calcified atheromatous plaques are noted involving visualized aorta. Rest of lungs are clear The central airways are patent. There are no pleural effusions. No pneumothorax is seen. No axillary, hilar, or mediastinal adenopathy is identified. The visualized thyroid is unremarkable. The Rest of aorta, and pulmonary arteries are of normal size and configuration. No pericardial effusion is identified. Imaged portions of the upper abdomen are unremarkable. No aggressive appearing osseous lesions are identified. IMPRESSION: 1. dilatation of ascending aorta with maximum diameter measures about 45 mm. 2. linear fracture is noted involving anterior end of right 3rd rib. 3. Old united fracture is noted involving left 11th rib. 4. Cardiomegaly. 5. Mild bilateral interstitial septal thickening is noted involving bilateral upper and lower lobes, possible congestion/interstitial edema. Electronically signed by Roderick Contreras 12-26-2024 06:04 AM
--- NOTE | 2024-12-26 06:15 | CT Scan Report ---
EXAM: CT lumbar spine w con CLINICAL HISTORY: Trauma TECHNIQUE: CT scan of the lumbar spine was performed following the intravenous administration of iodinated contrast material. Contiguous axial images were obtained from the upper lumbar spine to the sacrum. Coronal and sagittal reformatted images were also reviewed. One of the following dose reduction techniques was utilized for this exam. Automated exposure control, adjustment of the mA and/or kV according to patient size, and use of iterative reconstruction. DLP: 3375.15 mGy.cm COMPARISON: No previous studies are available for comparison. FINDINGS: Vertebrae: Mild scoliosis of the lumbar spine with jovana angle of 15° and convexity towards the left. Sclerotic changes of the endplates of L2-L3 (could indicate bone marrow changes, which may require MRI to do better evaluation). Mild retrolisthesis of L2 over L3. Mild anterolisthesis of L4 over L5. The vertebral bodies are normal in height. Marginal osteophytes are seen. Reduced intervertebral disc spaces seen at multiple levels with vacuum phenomenon. Significantly reduced L2-L3 intervertebral disc space with endplate sclerosis. No evidence of acute fracture or dislocation. Generalized reduced bone density. No signs of lytic or sclerotic lesions. Normal configuration of the posterior elements. Facet Joints: Facet joint arthropathy seen. Neural Foramina: Multilevel diffuse disc bulge is seen causing ventral thecal sac indentation with bilateral neural foraminal narrowing. Paraspinal Soft Tissues: The paraspinal soft tissues are normal in appearance, without evidence of mass or abnormal fluid collection. Post-Contrast Evaluation: No abnormal enhancement is observed in the lumbar spine, surrounding soft tissues, or paraspinal regions. No evidence of epidural abscess or phlegmon. Diffuse atherosclerotic changes of abdominal aorta. Additional Findings: No other significant findings are noted in the visualized soft tissue structures or bony elements. IMPRESSION: 1. No acute fracture seen. 2. Moderate lumbar spondylosis. Osteopenia. 3. Multilevel diffuse disc bulges seen causing ventral thecal sac indentation with bilateral neural foraminal narrowing. MRI lumbar spine is advised if clinically indicated. 4. No significant abnormal post-contrast enhancement. Electronically signed by Jonathan Langley 12-26-2024 06:15 AM
--- NOTE | 2024-12-26 06:23 | CT Scan Report ---
EXAM: CT abd pelvis IV con only CLINICAL HISTORY: Trauma TECHNIQUE: Contiguous axial images were obtained from the level of the diaphragm to the pubic symphysis with intravenous contrast. Coronal and sagittal reconstructions were likewise performed and indicated to increase the sensitivity for detecting clinically relevant pathology. If IV contrast material had not been administered, the likelihood of detecting abnormalities relevant to the patient's condition would have been substantially decreased. CT scan was performed according to ALARA (as low as reasonable achievable). COMPARISON: None. FINDINGS: Cardiomegaly noted. Dilated IVC and hepatic veins with mild hepatic congestion is seen. No focal liver lesions are seen. There is no intra or extrahepatic biliary ductal dilatation. Hepatic vasculature is patent. The gallbladder is present. Well defined cystic lesion of size 3.7 x 2.6 cm is noted cranial to the pancreatic head extending up to the hepatic arleth and undersurface of the left lobe of liver. No fat planes with any of the structure is noted. It appears to be insinuating between the left lobe of the liver and the caudate lobe. Findings likely suggestive of benign cystic lesion. Possible differentials include lymphatic malformation /exophytic hepatic cyst. Correlation with the prior study/follow up is suggested. The spleen, pancreas, and adrenal glands are unremarkable. The kidneys are normal in size and attenuation. There is no hydronephrosis or perinephric fat stranding. No renal calculi or renal masses are identified. The ureters are normal in caliber and no ureteral calculi are seen. The bladder is normal in contour. Pelvic viscera are unremarkable. No focal or diffuse bowel wall thickening or evidence of bowel obstruction is identified. The appendix is visualized in the right lower quadrant and appears within normal limits. Abdominal and pelvic vasculature is patent. No adenopathy or fluid collections are seen. No aggressive appearing osseous lesions are identified. Multiple small uncomplicated sigmoid colonic diverticulosis Diffuse atherosclerotic calcification is noted involving aorta iliac arteries. IMPRESSION: 1. Cardiomegaly noted. 2. Dilated IVC and hepatic veins with mild hepatic congestion is seen. 3. Multiple small uncomplicated sigmoid colonic diverticulosis 4. Well defined cystic lesion of size 3.7 x 2.6 cm is noted cranial to the pancreatic head extending up to the hepatic arleth and undersurface of the left lobe of liver as described. Findings likely suggestive of benign cystic lesion. Possible differentials include lymphatic malformation /exophytic hepatic cyst. Correlation with the prior study/follow up is suggested. 5. NO Trauma related abnormality seen. Electronically signed by Roderick Contreras 12-26-2024 06:23 AM
[2024-12-26] MEDS: cefTRIAXone SODIUM 2,000 MG/50 ML BAG IV STA (06:40)
--- NOTE | 2024-12-26 07:43 | History & Physical Report ---
Date of Service December 26, 2024 Assessment & Plan (1) Acute metabolic encephalopathy: (2) Fall from standing: (3) Fracture of right third rib: (4) Generalized weakness: (5) Acute UTI: (6) Chronic hyponatremia: (7) Hyponatremia: (8) Atrial fibrillation: (9) Aortic root enlargement: (10) Hypertension: Plan This is an 84yo F with PMH of atrial fibrillation on Eliquis, aortic root enlargement, hypertension, hypothyroidism, aortic stenosis, history of stroke with statin intolerance and chronic hyponatremia who presents from home after a fall overnight and was found to have acute metabolic encephalopathy in setting of UTI. Unwitnessed fall with head strike Trauma protocol in ED - CT head without evidence of acute intracranial abnormality Extensive imaging reviewed and mentioned above - CT chest with anterior end R 3rd rib fracture, no acute fractures or findings noted on C-spine, T-spine or L- spine Hgb stable at 12.4 - held Eliquis today given forehead lac and facial ecchymosis - plan to resume in AM if CBC stable Fall precautions, pain control PT/OT eval as able Acute metabolic encephalopathy In setting of UTI, acute on chronic hypoNa CT head negative for acute findings as above Expect improvement with abx, lyte correction Acute UTI Frequent & painful urination Continue empiric Rocephin, follow culture Acute on chronic hyponatremia Na 126 on admission, received 500 ml NSS in ED Serum osm normal, urine osm low, sodium 68 Repeat BMP later this morning showed improved Na 129 (baseline 129-130) Tolerating PO fluids Possible component of SIADH - 1.8 L FR Plan to resume spironolactone in AM Repeat BMP in AM Chronic atrial fibrillation on Eliquis A fib 108 bpm on admission, asymptomatic Eliquis held today given fall and significant facial ecchymosis with bleeding lac above forehead in ED No acute bleeding, hgb stable at 12. Plan to resume in AM Moderate cardiomyopathy Markedly abnormal 2D echo per Jun 2024 cards note - "moderate-severe aortic insufficiency, TR, MR" Does not want surgical intervention for heart or aortic disease per cards note Mild bilateral interstitial thickening noted bilateral upper and lower lobes, possible congestion/interstitial edema - monitor volume status closely Plan to resume spironolactone in AM Daily weights, strict I&Os Dilated ascending aorta Stable size noted on CT chest today with dilatation of ascending aorta with maximum diameter measures about 45 mm, was 4.6cm on Jun [address] Allen of [facility] Abnormal CT chest Pancreatic cystic lesion noted as incidental finding, likely benign but ddx include include lymphatic malformation /exophytic hepatic cyst per report Recommend PCP follow up DVT Ppx: resume eliquis as able Code status: DNR/DNI confirmed with patient PCP: Dave Dispo: Admitted to PCU, can likely downgrade once lytes stabilize Patient seen in collaboration with Dr. Montes De Oca. Please see addendum. I spent a total of 75 minutes coordinating, documenting, and providing care for this patient excluding time spent in the performance of separately billed services or time spent by another provider/QHP. History of Present Illness Chief Complaint: fall Primary Care Provider: Rin Acosta MD This is an 84yo F with PMH of atrial fibrillation on Eliquis, aortic root enlargement, hypertension, hypothyroidism, aortic stenosis, history of stroke with statin intolerance and chronic hyponatremia who presents from home after a fall overnight. Lives in an apartment in her daughter's home. Got up and ambulated to bathroom last night and felt lightheaded, resulting in a fall with a head strike. Denies LOC. Was able to get herself back to bed but continued to feel poorly so called out for help to daughter using Marla at that point and was brought via EMS for further eval. Trauma was activated as patient is on Eliquis. In ED, patient endorsing throbbing R chest wall pain from fall. Also with bruising and swelling around L eye. Pleuritic pain with deep inspiration. Endorses recent increased urinary frequency and pain with urination. Daughter states she has seemed confused and has been saying things out of the ordinary for the past few days as well. No F/C, lightheadedness, CP, N/V, abd pain, diarrhea or constipation. Allergies Allergy/AdvReac Type Severity Reaction Status Date / Time Sulfa (Sulfonamide Allergy Mild Unknown Verified 12/26/24 04:19 Antibiotics) Penicillins AdvReac Hives Verified 12/26/24 04:19 Home Medications Medication Instructions Recorded Confirmed Type apixaban 5 mg tablet (Eliquis) 5 mg PO BID 11/01/23 12/26/24 History conjugated estrogens 0.625 mg 0.625 mg PO DAILY 11/01/23 12/26/24 History tablet (Premarin) levothyroxine 75 mcg tablet 75 mcg PO DAILY 11/01/23 12/26/24 History lisinopril 20 mg tablet 20 mg PO QAM 11/01/23 12/26/24 History metoprolol succinate 100 mg 100 mg PO BID 11/01/23 12/26/24 History tablet,extended release 24 hr spironolactone 25 mg tablet 12.5 mg PO DAILY 11/01/23 12/26/24 History cetirizine 10 mg tablet 10 mg PO DAILY PRN Allergic 12/26/24 12/26/24 History Symptoms famotidine 20 mg tablet 20 mg PO BID PRN Acid Reflux 12/26/24 12/26/24 History furosemide 20 mg tablet (Lasix) 20 mg PO DAILY PRN edema 12/26/24 12/26/24 History Past Med/Surg History Problem List (Updated 12/26/24 @ 16:37 by Paul Morse MD) Generalized weakness Acute metabolic encephalopathy Fracture of right third rib (Acute) Acute UTI (Acute) Hyponatremia (Acute) Fall from standing (Acute) Medical History (Updated 12/26/24 @ 16:37 by Paul Morse MD) Chronic hyponatremia Hypertension Aortic root enlargement Atrial fibrillation Social History Smoking Status: Never smoker Hx Alcohol Use: Yes Alcohol type: wine Hx Substance Use: No Preferred Language: [place] Communication Ability: Effective Slab Lifting Supervisor Required: No Beliefs That Will Affect Care: None Current Living Situation: Family Current Living Situation Comment: Lives with daughter Feels Safe at Home: Yes Assistive Devices: Cane, Glasses and Stair Lift Review of Systems Review of Systems: At least ten systems reviewed and negative except as noted in the HPI. Physical Exam Physical Exam: General Appearance: WD/WN, vitals as above, NAD, sitting up in bed, pleasant Head: normocephalic, + extensive bruising surrounding L eye with hematoma over left eyebrow with dressing in place, no active bleeding Eyes: PERRL ENT: external ear and nose normal, oropharynx normal Neck: normal visual inspection Respiratory: normal respiratory effort, diminished breath sounds 2/2 shallow breathing, bibasilar crackles Cardiovascular: irregular rate & rhythm, + murmur, no BLE edema. Vessels: no JVD Chest: normal inspection of chest. TTP R chest wall 2/2 rib fracture, no deformity Abdomen/GI: normal bowel sounds, soft, nontender, no hepatosplenomegaly Extremities/Musculoskeletal: no cyanosis or clubbing, extremities motor strength 5/5 Neurologic: PERRL, EOMI, accommodation nl, no face palsy, no dysarthria, CN's II-XI intact bilaterally and moves all extremities Psychiatric: A+Ox3, requires redirection but then answers appropriately Skin: no rashes, normal color, warm/dry Results & Data Results & Data Vital Signs (Past 12 Hours) Vital Signs Temp Pulse Pulse Resp BP BP Pulse Ox 12/26/24 07:00 85 20 159/91 H 98 12/26/24 07:00 89 20 159/91 H 97 12/26/24 06:46 90 18 161/97 H 96 12/26/24 06:00 36.8 C 104 H 20 164/85 H 96 12/26/24 05:38 108 H 20 145/110 H 96 12/26/24 05:00 104 H 17 97 12/26/24 04:38 103 H 18 163/103 H 97 12/26/24 04:27 97 12/26/24 03:54 105 H 17 97 12/26/24 03:54 37.1 C 105 H 17 154/122 H 97 12/26/24 03:54 111 H 12/26/24 03:50 37.1 C 106 H 18 156/98 H 97 12/26/24 03:38 37.1 C 105 H 17 154/122 H 97 O2 Del Method O2 Flow Rate 12/26/24 07:00 Room Air 12/26/24 07:00 Room Air 12/26/24 06:46 Room Air 12/26/24 06:00 Room Air 12/26/24 05:38 Room Air 12/26/24 05:00 Room Air 12/26/24 04:38 Room Air 12/26/24 04:27 Room Air 12/26/24 03:54 Room Air 12/26/24 03:54 Room Air 0 12/26/24 03:54 12/26/24 03:50 Room Air 12/26/24 03:38 Room Air Laboratory Results Short CBC 12/26/24 Range/Units 03:54 WBC 5.36 (4.8-10.8) K/ul Hgb 12.4 (12.0-16.0) g/dl Hct 35.0 L (37.0-47.0) % Plt Count 157 (130-400) K/uL BMP 12/26/24 12/26/24 03:54 09:00 Sodium 126 L 129 L Potassium 4.4 4.9 Chloride 94 L 95 L Carbon Dioxide 25 27 BUN 13 10 Creatinine 0.88 0.84 Glucose 96 Calcium 8.7 8.8 Cardiac Enzymes 12/26/24 Range/Units 03:54 Total Creatine Kinase 186 (26-192) U/L Liver Function 12/26/24 Range/Units 03:54 Total Bilirubin 0.4 (0.2-1.0) mg/dl AST 23 (13-39) U/L ALT 14 (7-52) U/L Alkaline Phosphatase 29 L (34-104) U/L Albumin 3.5 (3.4-5.0) gm/dl Urine 12/26/24 Range/Units 04:41 Urine Color Yellow Urine Appearance Cloudy A (Clear) Urine pH 6.5 (4.5-7.5) Ur Specific [place] 1.015 (1.000-1.030) Urine Protein Negative (Negative) Urine Glucose (UA) Negative (Negative) Diagnostic Findings Chest X-Ray 12/26/24 03:54 EXAM: XR chest 1V portable CLINICAL HISTORY: Trauma TECHNIQUE: An X-ray image of the chest is obtained in AP projection. COMPARISON: prior Cr 11/01/2023 FINDINGS: Pulmonary Parenchyma: Lungs are clear bilaterally. No evidence of consolidation, collapse, or focal opacities. No pulmonary nodules are identified. Haziness is seen in the left lower zone, obscuring the left costophrenic angle. Heart and Mediastinum: Mild cardiomegaly ( unchanged ) No mediastinal widening or masses. No hilar or mediastinal lymphadenopathy. Bony Thorax: Bony thorax appears intact without fractures or deformities. Soft Tissues: Soft tissues overlying the chest wall are unremarkable. IMPRESSION: 1. Haziness is seen in the left lower zone, obscuring the left costophrenic angle, likely positional however, clinical and lab correlation is advised to rule out pulmonary infection. 2. No significant interval changes. Electronically signed by Jonathan Langley 12-26-2024 04:[address] 12/26/24 03:54 EXAM: CT lumbar spine w con CLINICAL HISTORY: Trauma TECHNIQUE: CT scan of the lumbar spine was performed following the intravenous administration of iodinated contrast material. Contiguous axial images were obtained from the upper lumbar spine to the sacrum. Coronal and sagittal reformatted images were also reviewed. One of the following dose reduction techniques was utilized for this exam. Automated exposure control, adjustment of the mA and/or kV according to patient size, and use of iterative reconstruction. DLP: 3375.15 mGy.cm COMPARISON: No previous studies are available for comparison. FINDINGS: Vertebrae: Mild scoliosis of the lumbar spine with jovana angle of 15° and convexity towards the left. Sclerotic changes of the endplates of L2-L3 (could indicate bone marrow changes, which may require MRI to do better evaluation). Mild retrolisthesis of L2 over L3. Mild anterolisthesis of L4 over L5. The vertebral bodies are normal in height. Marginal osteophytes are seen. Reduced intervertebral disc spaces seen at multiple levels with vacuum phenomenon. Significantly reduced L2-L3 intervertebral disc space with endplate sclerosis. No evidence of acute fracture or dislocation. Generalized reduced bone density. No signs of lytic or sclerotic lesions. Normal configuration of the posterior elements. Facet Joints: Facet joint arthropathy seen. Neural Foramina: Multilevel diffuse disc bulge is seen causing ventral thecal sac indentation with bilateral neural foraminal narrowing. Paraspinal Soft Tissues: The paraspinal soft tissues are normal in appearance, without evidence of mass or abnormal fluid collection. Post-Contrast Evaluation: No abnormal enhancement is observed in the lumbar spine, surrounding soft tissues, or paraspinal regions. No evidence of epidural abscess or phlegmon. Diffuse atherosclerotic changes of abdominal aorta. Additional Findings: No other significant findings are noted in the visualized soft tissue structures or bony elements. IMPRESSION: 1. No acute fracture seen. 2. Moderate lumbar spondylosis. Osteopenia. 3. Multilevel diffuse disc bulges seen causing ventral thecal sac indentation with bilateral neural foraminal narrowing. MRI lumbar spine is advised if clinically indicated. 4. No significant abnormal post-contrast enhancement. Electronically signed by Jonathan Langley 12-26-2024 06:15 AM Pelvis X-Ray 12/26/24 03:54 EXAM: XR pelvis 1-2V routine CLINICAL HISTORY: Trauma TECHNIQUE: X-ray images of the pelvis were obtained in anteroposterior (AP) projection. COMPARISON: No prior studies available for comparison. FINDINGS: Bone Structure: Pelvic bones, including the iliac wings, ischium, pubis, and sacrum, are normal and intact. No evidence of fractures, dislocations, or significant osseous lesions. Hip Joints: Hip joints are normal with preserved joint spaces. No evidence of hip dislocation, subluxation, or significant degenerative changes. Acetabulum: Acetabular structures appear normal and intact. No signs of acetabular fracture or dysplasia. Symphysis Pubis: Symphysis pubis is normal and intact. No evidence of separation or widening. Sacroiliac Joints: Mild bilateral narrowing, irregularity with end plates sclerosis. Soft Tissues: Visualized soft tissues are normal and unremarkable. No soft tissue swelling, calcifications, or masses. Additional Findings: No other significant abnormalities were noted. IMPRESSION: 1. No evidence of acute fractures or dislocations. 2. Mild bilateral degenerative sacroiliits Disclaimer: A subtle bone abnormality or fracture may not be readily apparent on X-rays, thus clinical correlation and further imaging including follow-up CT, MRI, or follow-up X-rays are advised as needed. Electronically signed by Jonathan Langley 12-26-2024 04:[address] 12/26/24 03:54 EXAM: CT thoracic spine w con CLINICAL HISTORY: trauma TECHNIQUE: Multiple axial images of CT thoracic spine with contrast was submitted in bone and soft tissue window. 93 ml optiray 320 intravenous contrast was administered for post contrast images. One of the following dose reduction techniques were utilized for this exam: Automated exposure control, adjustment of the mA and/or kV according to patient size, and use of iterative reconstruction. DLP: 3375.15 mGy.cm COMPARISON: None. FINDINGS: Vertebrae: Normal alignment of the thoracic vertebrae. No fractures, lytic or sclerotic lesions. Normal bone density without evidence of osteopenia or osteoporosis. Intervertebral Discs: Mild intervertebral decrease spaces with anterior osteophytes formation, indicating chronic degenerative changes. Lower cervical vertebrae show intervertebral degenerative changes with enplates sclerotic changes. No evidence of disc herniation, bulging, or significant degeneration. Spinal Canal and Neural Foramina: The spinal canal is of normal caliber with no evidence of spinal stenosis. Neural foramina are patent bilaterally at all levels. No evidence of nerve root compression. Facet Joints: Normal appearance of the facet joints. No evidence of facet arthropathy or significant degenerative changes. Soft Tissues: Bilateral signs of pulmonary congestion (interstitial thickening, and ground-glass pattern mainly of lower lobes). Normal appearance of the paraspinal soft tissues. No abnormal masses, fluid collections, or signs of inflammation. Vascular Structures: Ascending aorta aneurysmal dilatation (about 46 mm in diameter). Multiple atherosclerotic plaques of the aortic murphy. Normal appearance and enhancement of the thoracic aorta and other major vessels. No evidence of dissection, or significant stenosis. IMPRESSION: 1. No fracture or dislocation. 2. Aneurysmal dilatation of the ascending aorta (about 46 mm). 3. Multilevel intervertebral degenerative changes, mainly in lower thoracic spine and the lower cervical spine. 4. Signs of pulmonary congestion. Electronically signed by Jonathan Langley 12-26-2024 05:58 AM Abdomen/Pelvis CT 12/26/24 03:55 EXAM: CT abd pelvis IV con only CLINICAL HISTORY: Trauma TECHNIQUE: Contiguous axial images were obtained from the level of the diaphragm to the pubic symphysis with intravenous contrast. Coronal and sagittal reconstructions were likewise performed and indicated to increase the sensitivity for detecting clinically relevant pathology. If IV contrast material had not been administered, the likelihood of detecting abnormalities relevant to the patient's condition would have been substantially decreased. CT scan was performed according to ALARA (as low as reasonable achievable). COMPARISON: None. FINDINGS: Cardiomegaly noted. Dilated IVC and hepatic veins with mild hepatic congestion is seen. No focal liver lesions are seen. There is no intra or extrahepatic biliary ductal dilatation. Hepatic vasculature is patent. The gallbladder is present. Well defined cystic lesion of size 3.7 x 2.6 cm is noted cranial to the pancreatic head extending up to the hepatic arleth and undersurface of the left lobe of liver. No fat planes with any of the structure is noted. It appears to be insinuating between the left lobe of the liver and the caudate lobe. Findings likely suggestive of benign cystic lesion. Possible differentials include lymphatic malformation /exophytic hepatic cyst. Correlation with the prior study/follow up is suggested. The spleen, pancreas, and adrenal glands are unremarkable. The kidneys are normal in size and attenuation. There is no hydronephrosis or perinephric fat stranding. No renal calculi or renal masses are identified. The ureters are normal in caliber and no ureteral calculi are seen. The bladder is normal in contour. Pelvic viscera are unremarkable. No focal or diffuse bowel wall thickening or evidence of bowel obstruction is identified. The appendix is visualized in the right lower quadrant and appears within normal limits. Abdominal and pelvic vasculature is patent. No adenopathy or fluid collections are seen. No aggressive appearing osseous lesions are identified. Multiple small uncomplicated sigmoid colonic diverticulosis Diffuse atherosclerotic calcification is noted involving aorta iliac arteries. IMPRESSION: 1. Cardiomegaly noted. 2. Dilated IVC and hepatic veins with mild hepatic congestion is seen. 3. Multiple small uncomplicated sigmoid colonic diverticulosis 4. Well defined cystic lesion of size 3.7 x 2.6 cm is noted cranial to the pancreatic head extending up to the hepatic arleth and undersurface of the left lobe of liver as described. Findings likely suggestive of benign cystic lesion. Possible differentials include lymphatic malformation /exophytic hepatic cyst. Correlation with the prior study/follow up is suggested. 5. NO Trauma related abnormality seen. Electronically signed by Roderick Contreras 12-26-2024 06:[address] 12/26/24 03:55 EXAM: CT cervical spine wo con CLINICAL HISTORY: Trauma TECHNIQUE: CT scan of the cervical spine was performed without the administration of intravenous contrast. Contiguous axial images were obtained from the skull base to the upper thoracic spine. Coronal and sagittal reformatted images were also reviewed. One of the following dose reduction techniques was utilized for this exam. Automated exposure control, adjustment of the mA and/or kV according to patient size, and use of iterative reconstruction. (CTDI: 37.61 mGy, DLP: 3375.15 mGy*cm) COMPARISON: No previous studies are available for comparison. FINDINGS: Straightened cervical lordosis, suggesting muscle spasm. No acute fracture or dislocation. Minimal anterolisthesis of C3 and C7 vertebral bodies. Degenerative changes in the cervical spine as evidenced by marginal osteophytosis. Reduced intervertebral disc spaces at multiple levels of the cervical spine. No vertebral wedging or collapse. C4/C5, C5/C6, and C6-C7 posterior disc osteophyte complexes are seen indenting the thecal sac and encroaching upon corresponding neural exit foramina and exiting nerve roots bilaterally, most evident at C5/C6 level. Degenerative changes at the atlantoaxial articulation. Degenerative changes at multiple facets and uncovertebral joints bilaterally. Reduced bone density. No suspicious sclerotic or lytic bony lesions. Prevertebral and para-vertebral soft tissues are unremarkable. IMPRESSION: 1. No acute fracture or dislocation. 2. Multilevel cervical spondylotic changes. MRI may be recommended for further evaluation. Electronically signed by Jonathan Langley 12-26-2024 05:[address] 12/26/24 03:55 EXAM: CT chest diagnostic w con CLINICAL HISTORY: Trauma TECHNIQUE: Contiguous axial images were obtained from the neck base through the upper abdomen following intravenous administration of contrast material. If IV contrast material had not been administered, the likelihood of detecting abnormalities relevant to the patient's condition would have been substantially decreased. In addition, sagittal and coronal reconstructions were performed. CT scan was performed according to ALARA (as low as reasonable achievable). COMPARISON: None. FINDINGS: Aneurysmal dilatation of ascending aorta with maximum diameter measures about 45 mm. Old linear fracture is noted involving anterior end of right 3rd rib. Old united fracture with callus formation is noted involving left 11th rib. Cardiomegaly noted. Mild bilateral interstitial septal thickening is noted involving bilateral upper and lower lobes, possible congestion/interstitial edema. Multiple calcified as well as non-calcified atheromatous plaques are noted involving visualized aorta. Rest of lungs are clear The central airways are patent. There are no pleural effusions. No pneumothorax is seen. No axillary, hilar, or mediastinal adenopathy is identified. The visualized thyroid is unremarkable. The Rest of aorta, and pulmonary arteries are of normal size and configuration. No pericardial effusion is identified. Imaged portions of the upper abdomen are unremarkable. No aggressive appearing osseous lesions are identified. IMPRESSION: 1. dilatation of ascending aorta with maximum diameter measures about 45 mm. 2. linear fracture is noted involving anterior end of right 3rd rib. 3. Old united fracture is noted involving left 11th rib. 4. Cardiomegaly. 5. Mild bilateral interstitial septal thickening is noted involving bilateral upper and lower lobes, possible congestion/interstitial edema. Electronically signed by Roderick Cotnreras 12-26-2024 06:[address] 12/26/24 03:55 EXAM: CT head/brain wo con CLINICAL HISTORY: trauma TECHNIQUE: Multiple axial images are obtained from the skull base to the vertex without contrast. CT scan was performed according to ALARA (as low as reasonable achievable). COMPARISON: 11/02/2023 06:54:48 LEVER TENDER . FINDINGS: There is cerebral atrophy. No evidence of space occupying lesion, hemorrhage, edema, mass effect, midline shift, extra axial collection, or hydrocephalus is noted. Basal cisterns are symmetric and normal in size and configuration. There are scattered periventricular hypodensities as can be seen with chronic microvascular ischemic changes. The salcedo-white matter differentiation is preserved. Visualized paranasal sinuses and mastoid air cells are well aerated. Orbital contents are within normal limits. Bony structures are intact. Rest unchanged. IMPRESSION: 1. No evidence of acute intracranial abnormality is demonstrated. 2. Chronic microvascular ischemic changes.-stable. 3. Cerebral atrophy.-stable. Electronically signed by Roderick Contreras 12-26-2024 05:[address] 12/26/24 03:56 EXAM: CT facial bones wo con CLINICAL HISTORY: Trauma TECHNIQUE: Computed tomography of the orbits/face was performed without intravenous contrast. Contiguous axial images were obtained. Reformatted coronal and sagittal images were also reviewed. CT scan was performed according to ALARA (as low as reasonable achievable). COMPARISON: none. FINDINGS: No acute facial fractures. Left maxillary sinusitis. Rest of paranasal sinuses and mastoid air cells are clear. The globes, optic nerves, extraocular muscles and retro-orbital fat are grossly unremarkable. Reformatted imaging demonstrates intact roof and floor of the orbits. Included portions of the mandible are intact. The included intracranial substances and airway are unremarkable. IMPRESSION: No acute facial fractures. Left maxillary sinusitis. Electronically signed by Roderick Contreras 12-26-2024 05:41 AM Code Status & VTE Plan VTE Prophylaxis Plan VTE Prophylaxis will be ordered: Yes Supervising Physician Co-Signing Physician Notes Patient seen and examined at bedside. Patient doing well today, feels much better. Some pain on left side of face and right side of chest. Fall 2/2 lightheadedness. On exam, notable abrasion and ecchymosis on left eyesocket, alert and oriented x3 on my exam, tenderness to palpation on right rib cage, eating dinner well. 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 Lightheadedness likely 2/2 below, however could be cardiac structure related or arrythmia related as well. Metabolic encephalopathy 2/2 complicated UTI and acute on chronic hyponatremia 2/2 elements of SIADH. Ecchymoses and rib fractures 2/2 trauma. Encourage incentive spirometry, PT/OT given fall. Fluid restriction given concern for SIADH, trend Na and make adjustments pending daily BMP. Avoid anticholinergics. F/u urine culture and deescalate abx based on results. Restart eliquis tomorrow in setting of atrial fibrillation. Oxycodone for pain control in the acute setting, if still severe in 24-48 hours could consider short course of lyrica 25mg tid for neuropathic components for pain. Telemetry and echo ordered. I have seen and discussed the case with the collaborating advanced practitioner. I agree with the above H&P. I have reviewed and confirmed the patients medical history, the findings on physical examination, and the patients diagnosis and treatment plan with Eda Larson PA-C and agree with the information documented. I spent a total of 30 minutes coordinating, documenting, and providing care for this patient excluding time spent in the performance of separately billed services. All of the aforementioned completed outside of collaborating with the assigned advanced practitioner for a full treatment plan. I have reviewed the advanced practitioner's documentation, and I agree with, and take responsibility for the plan of care
[2024-12-26] MEDS ORDERED: CETIRIZINE HCL 10 MG TABLET PO PRN (08:19)
[2024-12-26] MEDS ORDERED: MoRPHine SULFATE 2 MG/ML CARP IV PRN (09:17)
[2024-12-26 09:26] LABS: Calcium 8.8 mg/dl (8.6-10.3); Potassium 4.9 mmol/L (3.5-5.1)
[2024-12-26 09:32] LABS: Creatinine Clr Calc Pharmacy 50.5 ml/min
[2024-12-26] MEDS: oxyCODONE HCL IR 5 MG TAB (IMMEDIATE RELEASE) PO PRN ×2 (10:45→17:30)
[2024-12-26] MEDS: FAMOTIDINE 20 MG TAB PO PRN (10:46)
[2024-12-26] MEDS: lisinopril 20 MG TAB PO STA (10:47)
[2024-12-26] MEDS: ESTROGENS, CONJUGATED 0.625 MG TAB PO STA (10:47)
[2024-12-26] MEDS: METOPROLOL SUCC 50MG EXT REL TAB PO STA (10:48)
[2024-12-26] MEDS: LEVOTHYROXINE SODIUM 75 MCG TABLET PO STA (10:48)
[2024-12-26] MEDS ORDERED: MELATONIN 3 MG TAB PO PRN (15:52)
[2024-12-26] MEDS ORDERED: POLYETHYLENE (MIRALAX) 17 GM PACK PO PRN (15:52)
[2024-12-26] MEDS ORDERED: ONDANSETRON INJ 2 MG/ML 2 ML VIAL IV PRN (15:52)
[2024-12-26] MEDS: ACETAMINOPHEN 500 MG TAB PO SCH (16:00)
[2024-12-26] MEDS: LIDOCAINE 5% 1 PATCH TD STA (17:31)
[2024-12-26] MEDS: METOPROLOL SUCC 50MG EXT REL TAB PO SCH (20:46)
[2024-12-26] MEDS ORDERED: Nursing to Pharmacy Communication SCH (22:45)
[2024-12-27] MEDS: LEVOTHYROXINE SODIUM 75 MCG TABLET PO SCH (05:37)
[2024-12-27] MEDS: cefTRIAXone SODIUM 2,000 MG/50 ML BAG IV SCH (05:49)
[2024-12-27 06:19] LABS: Hematocrit (blood only) 33.6 % (37.0-47.0); Hemoglobin 11.6 g/dl (12.0-16.0); Mean Corpuscular Hemoglobin 34.6 pg (25.0-34.0); Mean Corpuscular Hgb Conc 34.5 g/dL (32.0-36.0); Mean Corpuscular Volume 100.3 fL (80.0-100.0); Mean Platelet Volume 9.7 fL (9.4-12.4); Platelet Count 146 K/uL (130-400); RDW Coefficient of Variation 12.5 % (11.5-14.5); RDW Standard Deviation 46.4 fL (36.4-46.3); Red Blood Count 3.35 M/uL (4.20-5.40); White Blood Count 5.22 K/ul (4.8-10.8)
[2024-12-27 06:37] LABS: BUN Creatinine Ratio 14.8 (10-20); Calcium 8.4 mg/dl (8.6-10.3); Creatinine Clr Calc Pharmacy 47.1 ml/min; Magnesium 1.8 mg/dl (1.7-2.4); Potassium 4.3 mmol/L (3.5-5.1)
[2024-12-27] MEDS: SPIRONOLACTONE 12.5 MG TAB PO SCH (08:40)
[2024-12-27] MEDS: ESTROGENS, CONJUGATED 0.625 MG TAB PO SCH (08:40)
[2024-12-27] MEDS: APIXABAN 5 MG TABLET PO SCH (08:40)
[2024-12-27] MEDS: lisinopril 20 MG TAB PO SCH (08:41)
[2024-12-27] MEDS: LIDOCAINE 5% 1 PATCH TD SCH (11:56)
--- NOTE | 2024-12-27 12:13 | CT Scan Report ---
CT head/brain wo con CLINICAL HISTORY: 84 years-old Female with agitation. Acutely altered mental status TECHNIQUE: Multiple axial CT images of the head were obtained without contrast. A dose lowering tech nique was utilized adhering to the principles of ALARA. CT DOSE: 547.75 mGy.cm COMPARISON: 12/26/2024 FINDINGS: No acute intracranial hemorrhage, midline shift, intracranial mass, hydrocephalus, territorial ischem ia or abnormal extra-axial collection. Involutional changes with chronic microvascular ischemic disea se. Left temporal lobe encephalomalacia again noted. Unchanged probable chronic lacunar infarct withi n the kaylen. Stable right cerebellar calcification. The calvarium is intact. Small left periorbital contusion. The paranasal sinuses, mastoid air cells, and middle ear cavities are clear. IMPRESSION: No acute intracranial abnormality. ACT 112: Negative or not required by law. The above report was generated using voice recognition software. It may contain grammatical, syntax o r spelling errors. Electronically signed by: Zhao Mejia M.D. 12/27/2024 12:12 PM
--- NOTE | 2024-12-27 12:21 | Hospitalist Progress Note ---
Date of Service December 27, 2024 Assessment & Plan (1) Acute metabolic encephalopathy: (2) Fall from standing: (3) Fracture of right third rib: (4) Generalized weakness: (5) Acute UTI: (6) Chronic hyponatremia: (7) Hyponatremia: (8) Atrial fibrillation: (9) Aortic root enlargement: (10) Hypertension: Plan This is an 84yo F with PMH of atrial fibrillation on Eliquis, aortic root enlargement, hypertension, hypothyroidism, aortic stenosis, history of stroke with statin intolerance and chronic hyponatremia who presents from home after a fall overnight and was found to have acute metabolic encephalopathy in setting of UTI. Unwitnessed fall with head strike L eye periorbital contusion Trauma protocol in ED - CT head without evidence of acute intracranial abnormality Extensive imaging reviewed and mentioned above - CT chest with anterior end R 3rd rib fracture, no acute fractures or findings noted on C-spine, T-spine or L- spine Repeat CT head today due to increased confusion is w/o acute abnormality Hgb 11.6 today Fall precautions, pain control - will d/c Oxy IR and switch to tramadol 25mg q6hr prn, scheduled lidocaine patches PT/OT eval as able Acute metabolic encephalopathy Acute Cystitis urine culture growing > 100k e. coli continue rocephin Acute on chronic hyponatremia Na 126 on admission, received 500 ml NSS in ED Serum osm normal, urine osm low, sodium 68 Repeat BMP later this morning showed improved Na 129 (baseline 129-130) Tolerating PO fluids Possible component of SIADH - 1.8 L FR follow bmp Chronic atrial fibrillation on Eliquis continue eliquis and metoprolol, rate controlled Moderate cardiomyopathy Markedly abnormal 2D echo per Jun 2024 cards note - "moderate-severe aortic insufficiency, TR, MR" Does not want surgical intervention for heart or aortic disease per cards note Mild bilateral interstitial thickening noted bilateral upper and lower lobes, possible congestion/interstitial edema - monitor volume status closely Daily weights, strict I&Os Dilated ascending aorta Stable size noted on CT chest today with dilatation of ascending aorta with maximum diameter measures about 45 mm, was 4.6cm on Jun [address] Allen of [facility] echo ordered and pending Abnormal CT chest Pancreatic cystic lesion noted as incidental finding, likely benign but ddx include include lymphatic malformation /exophytic hepatic cyst per report Recommend PCP follow up DVT Ppx: eliquis Code status: DNR/DNI confirmed with patient PCP: Dave Dispo: downgrade to [employer] tele today, awaiting urine culture results, PT/OT, possible d/c tomorrow I spent a total of 45 minutes coordinating, documenting, and providing care for this patient excluding time spent in the performance of separately billed services or time spent by another provider/QHP. Admission and Anticipated Discharge Date Admission Date: December 26, 2024 Supervising Physician Co-Signing Physician Notes Attending Addendum: Case reviewed with the advanced practitioner. I have reviewed the advanced practitioner's documentation on the date of service referenced in note, and I agree with, and take responsibility for the plan of care. please refer to her notes for full details patient seen and examined, records reviewed by myself as well all labs, imaging noted and reviewed diagnoses and plan of care as per advanced practitioner's notes I spent a total of 40 minutes coordinating, documenting, and providing care for this patient, excluding time spent in the performance of separately billed services or time spent by another provider/QHP. Owen Tan MD Subjective Pt was seen and examined in room 204. F/U metabolic encephalopathy in setting of UTI and traumatic fall. Pt answers questions, but appears annoyed. C/O dizziness upon standing and that the malian toast upset her stomach. Denies f/c/s, chest pain, vomiting, abd pain. Would not answer questions regarding bladder/bowel function. "I just want to be left alone." Review of Systems Review of Systems: All systems reviewed & are unremarkable except as noted in HPI & below Physical Exam Physical Exam: Gen: WD/WN, elderly, F, lying in left lateral decub position, NAD, A&O x3 HEENT: Normocephalic, L periorbital hematoma, no eye involvement, conjunctivae moist, sclerae anicteric, mucous membranes moist. Lung: Clear to Auscultation bilaterally, no wheezes/rales/rhonchi Heart: IRR/IRR no murmurs, rubs, or gallops Abdomen: Soft, NT, ND +BS x 4 Extremities: No edema Skin: Warm, no rash, negative turgor. Results & Data Results & Data Vital Signs (Past 12 Hours) Vital Signs Temp Pulse Pulse Resp BP Pulse Ox O2 Del Method 12/27/24 11:33 36.8 C 55 L 18 142/76 H 97 Room Air 12/27/24 07:46 36.6 C 80 20 142/82 H 94 Room Air 12/27/24 03:48 36.5 C 77 18 146/82 H 96 Room Air 12/27/24 02:02 73 Laboratory Results I have independently reviewed and interpreted patient's CBC, BMP, mag Short CBC 12/27/24 Range/Units 05:31 WBC 5.22 (4.8-10.8) K/ul Hgb 11.6 L (12.0-16.0) g/dl Hct 33.6 L (37.0-47.0) % Plt Count 146 (130-400) K/uL BMP 12/27/24 05:31 Sodium 129 L Potassium 4.3 Chloride 98 Carbon Dioxide 26 BUN 13 Creatinine 0.88 Glucose 93 Calcium 8.4 L Diagnostic Findings Head CT 12/27/24 10:41 CT head/brain wo con CLINICAL HISTORY: 84 years-old Female with agitation. Acutely altered mental status TECHNIQUE: Multiple axial CT images of the head were obtained without contrast. A dose lowering technique was utilized adhering to the principles of ALARA. CT DOSE: 547.75 mGy.cm COMPARISON: 12/26/2024 FINDINGS: No acute intracranial hemorrhage, midline shift, intracranial mass, hydrocephalus, territorial ischemia or abnormal extra-axial collection. Involutional changes with chronic microvascular ischemic disease. Left temporal lobe encephalomalacia again noted. Unchanged probable chronic lacunar infarct within the kaylen. Stable right cerebellar calcification. The calvarium is intact. Small left periorbital contusion. The paranasal sinuses, mastoid air cells, and middle ear cavities are clear. IMPRESSION: No acute intracranial abnormality. ACT 112: Negative or not required by law. The above report was generated using voice recognition software. It may contain grammatical, syntax or spelling errors. Electronically signed by: Zhao Mejia M.D. 12/27/2024 12:12 PM Medications Administered Current Inpatient Medications Acetaminophen (Acetaminophen 500 Mg Tab) 1,000 mg PO Q8H [facility] Stop: 01/25/25 15:51 Last Admin: 12/27/24 08:39 Dose: 1,000 mg Apixaban (Apixaban 5 Mg Tablet) 5 mg PO BID [facility] Stop: 01/26/25 08:59 Last Admin: 12/27/24 08:40 Dose: 5 mg Estrogens Conjugated (Estrogens, Conjugated 0.625 Mg Tab) 0.625 mg PO DAILY [facility] Stop: 01/26/25 08:59 Last Admin: 12/27/24 08:40 Dose: 0.625 mg Famotidine (Famotidine 20 Mg Tab) 20 mg PO BID PRN PRN Reason: Acid Reflux Stop: 01/25/25 08:18 Last Admin: 12/26/24 10:46 Dose: 20 mg Ceftriaxone Sodium (Rocephin) 2,000 mg in 50 mls @ 100 mls/hr IV Q24H [facility] Stop: 01/01/25 05:59 Last Infusion: 12/27/24 06:33 Dose: Infused Levothyroxine Sodium (Levothyroxine Sodium 75 Mcg Tablet) 75 mcg PO DAILYBB [facility] Stop: 01/26/25 06:29 Last Admin: 12/27/24 05:37 Dose: 75 mcg Lidocaine (Lidocaine 5% 1 Patch) 1 - 2 patch TD QAM [facility] Stop: 01/26/25 11:29 Lisinopril (Lisinopril 20 Mg Tab) 20 mg PO QAM [facility] Stop: 01/26/25 08:59 Last Admin: 12/27/24 08:41 Dose: 20 mg Melatonin (Melatonin 3 Mg Tab) 3 mg PO HS PRN PRN Reason: Sleep Stop: 01/25/25 15:51 Metoprolol Succinate (Metoprolol Succ 50mg Ext Rel Tab) 100 mg PO BID [facility] Stop: 01/25/25 20:59 Last Admin: 12/27/24 08:41 Dose: 100 mg Miscellaneous (Remove Lidoderm Patch) 1 each N/A DAILY@2100 [facility] Stop: 01/26/25 20:59 Ondansetron HCl (Ondansetron Inj 2 Mg/Ml 2 Ml Vial) 4 mg IV Q6H PRN PRN Reason: Nausea Stop: 01/25/25 15:51 Oxycodone HCl (Oxycodone Hcl Ir 5 Mg Tab (Immediate Release)) 5 mg PO Q4 PRN PRN Reason: Pain Stop: 01/09/25 16:51 Last Admin: 12/27/24 10:30 Dose: 5 mg Polyethylene Glycol (Polyethylene (Miralax) 17 Gm Pack) 17 gm PO DAILY PRN PRN Reason: Constipation Stop: 01/25/25 15:51 Spironolactone (Spironolactone 12.5 Mg Tab) 12.5 mg PO DAILY [facility] Stop: 01/26/25 08:59 Last Admin: 12/27/24 08:40 Dose: 12.5 mg (2) Fall from standing Encounter type: initial encounter Qualified Code(s): W19.XXXA - Unspecified fall, initial encounter
[2024-12-27] MEDS ORDERED: traMADol HCL 50 MG TABLET PO PRN (15:00)
--- NOTE | 2024-12-27 16:03 | Electrocardiogram Report ---
Test Reason : Blood Pressure : */* mmHG Vent. Rate : 108 BPM Atrial Rate : * BPM P-R Int : * ms QRS Dur : 100 ms QT Int : 336 ms P-R-T Axes : * 56 52 degrees QTcB Int : 450 ms Atrial fibrillation with rapid ventricular response with premature ventricular or aberrantly conducte d complexes Anterior infarct (cited on or before 01-Nov-2023) Abnormal ECG When compared with ECG of 01-Nov-2023 16:04, Questionable change in initial forces of Anterior leads Confirmed by Mustapha Collins ([id number]) on 12/27/2024 4:03:11 PM Referred By: REFERRED SELF Confirmed By: Mustapha Collins
[2024-12-27] MEDS ORDERED: METOPROLOL TARTRATE 1 MG/ML VIAL IV PRN (18:16)
[2024-12-27 19:01] LABS: Basophils # (auto) 0.06 K/uL (0.00-0.20); Basophils % (auto) 1.1 %; Eosinophils % (auto) 1.8 %; Hematocrit (blood only) 36.7 % (37.0-47.0); Hemoglobin 12.5 g/dl (12.0-16.0); Immature Granulocytes # (auto) 0.03 K/uL (0.01-0.20); Immature Granulocytes % (auto) 0.5 %; Lymphocytes # (auto) 0.59 K/uL (1.20-3.40); Lymphocytes % (auto) 10.4 %; Mean Corpuscular Hemoglobin 33.8 pg (25.0-34.0); Mean Corpuscular Hgb Conc 34.1 g/dL (32.0-36.0); Mean Corpuscular Volume 99.2 fL (80.0-100.0); Mean Platelet Volume 9.5 fL (9.4-12.4); Monocytes % (auto) 10.6 %; Neutrophils # (auto) 4.28 K/uL (1.40-6.50); Neutrophils % (auto) 75.6 %; Platelet Count 156 K/uL (130-400); RDW Coefficient of Variation 12.7 % (11.5-14.5); RDW Standard Deviation 45.7 fL (36.4-46.3); White Blood Count 5.66 K/ul (4.8-10.8)
[2024-12-28 07:34] LABS: Hemoglobin 11.7 g/dl (12.0-16.0); Mean Corpuscular Hemoglobin 33.8 pg (25.0-34.0); Mean Corpuscular Hgb Conc 33.4 g/dL (32.0-36.0); Mean Corpuscular Volume 101.2 fL (80.0-100.0); Platelet Count 146 K/uL (130-400); RDW Coefficient of Variation 12.5 % (11.5-14.5); RDW Standard Deviation 46.3 fL (36.4-46.3); Red Blood Count 3.46 M/uL (4.20-5.40)
[2024-12-28 07:46] VITALS: RESP 20
[2024-12-28 07:56] LABS: BUN Creatinine Ratio 16.9 (10-20); Calcium 8.7 mg/dl (8.6-10.3); Potassium 4.5 mmol/L (3.5-5.1)
--- NOTE | 2024-12-28 08:44 | CT Scan Report ---
ABDOMEN AND PELVIS CT WITHOUT CONTRAST CT DOSE: 1379.8 mGy.cm HISTORY: hemtauria TECHNIQUE: Multiaxial CT images of the abdomen and pelvis were performed without contrast. A dose lo wering technique was utilized adhering to the principles of ALARA. COMPARISON STUDY: 12/26/2024 FINDINGS: ABDOMEN: Previously described oval cystic finding between the proximal pancreas and the liver is stab le. Liver, gallbladder, spleen, pancreas, and adrenal glands have an unremarkable non-IV contrasted a ppearance otherwise. Kidneys show no hydronephrosis. No renal or ureteral calculi seen. There is a st able tiny likely cyst lateral left kidney. No gross renal mass seen. There are scattered atherosclero tic calcifications. No abdominal aortic aneurysm. Pelvis: Uterus is absent. No adnexal mass. Urinary bladder is decompressed. There is sigmoid divertic ulosis. No acute diverticulitis. No bowel inflammation or obstruction seen. No enlarged adenopathy. N o free fluid or free air. There is lumbar degenerative disc disease. There are mild degenerative billy ges at the hips. IMPRESSION: 1. No acute findings seen. 2. No hydronephrosis or renal calculi seen. 3. Otherwise as described. ACT 112: Negative or not required by law. The above report was generated using voice recognition software. It may contain grammatical, syntax o r spelling errors. Electronically signed by: Austin Reeves M.D. 12/28/2024 8:42 AM
--- NOTE | 2024-12-28 10:51 | Discharge Summary ---
Discharge Summary Date of Service December 28, 2024 Principal Dx & Hospital Course #1 = Principal Diagnosis (1) Acute metabolic encephalopathy: (2) Fall from standing: (3) Fracture of right third rib: (4) Generalized weakness: (5) Acute UTI: (6) Chronic hyponatremia: (7) Hyponatremia: (8) Atrial fibrillation: (9) Aortic root enlargement: (10) Hypertension: Plan This is an 84yo F with PMH of atrial fibrillation on Eliquis, aortic root enlargement, hypertension, hypothyroidism, aortic stenosis, history of stroke with statin intolerance and chronic hyponatremia who presents from home after a fall overnight and was found to have acute metabolic encephalopathy in setting of UTI. Trauma protocol was performed in ED. Her CT head without evidence of acute intracranial abnormality. She underwent extensive imaging and CT chest revealed anterior end R 3rd rib fracture, no acute fractures or findings noted on C-spine, T-spine or L-spine. Pt was found to have acute metabolic encephalopathy due to UTI. Urine culture grew > 100k pansensitive e.coli. She was started on empiric IV ceftriaxone and transitioned to oral keflex at discharge to complete a 7 day course. Her hospital course was complicated by acute/chronic hyponatremia. Her sodium on admission was 126. She received gentle IVF and was started on a fluid restriction which improved her sodium to 132 on day of discharge. She did have an abnormal finding on chest CT which showed a Pancreatic cystic lesion noted as incidental finding, likely benign but ddx include include lymphatic malformation /exophytic hepatic cyst per report. She should have GI follow up for further evaluation as outpt. On day of discharge she is feeling well. She is alert and oriented x 3 and no longer encephalopathic. I do think her confusion/agitation was also 2/2 oxycodone administration due to pain from rib fractures. This has since cleared after oxycodone was stopped. She was hemodynamically stable on day of discharge and tolerating diet. SHe is having mild hematuria in the setting of UTI. She underwent a CT abd/pelvis on day of discharge which was negative. She is encouraged to hold her eliquis until hematuria resolves. She states it is already improving with treatment of UTI. Notes For Next Care Provider Please follow up with abnormal CT abd/pelvis finding which showed a Pancreatic cystic lesion noted as incidental finding, likely benign but ddx include include lymphatic malformation /exophytic hepatic cyst per report. Pt was having mild hematuria at discharge. CT a/p pelvis unrevealing and hgb stable throughout hospital stay. Pt reports normal in setting of her UTI. Instructed pt to hold eliquis until this resolves. If it is persisting would recommend urology eval. Medication Changes From Visit Keflex 500mg by mouth twice daily for additional 5 days. This is your antibiotic for your UTI. Next dose is due in the morning on 12/29/24. It is recommended you take a daily probiotic while taking keflex. This is to protect the good bacteria in your GI tract. Please hold your Eliquis until the blood in your urine resolves. Once this resolves please resume Eliquis. Please continue all other medications. Admission HPI Per Admitting Provider This is an 84yo F with PMH of atrial fibrillation on Eliquis, aortic root enlargement, hypertension, hypothyroidism, aortic stenosis, history of stroke with statin intolerance and chronic hyponatremia who presents from home after a fall overnight. Lives in an apartment in her daughter's home. Got up and ambulated to bathroom last night and felt lightheaded, resulting in a fall with a head strike. Denies LOC. Was able to get herself back to bed but continued to feel poorly so called out for help to daughter using [facility] at that point and was brought via EMS for further eval. Trauma was activated as patient is on Eliquis. In ED, patient endorsing throbbing R chest wall pain from fall. Also with bruising and swelling around L eye. Pleuritic pain with deep inspiration. Endor ses recent increased urinary frequency and pain with urination. Daughter states she has seemed confused and has been saying things out of the ordinary for the past few days as well. No F/C, lightheadedness, CP, N/V, abd pain, diarrhea or constipation. Admission Exam Per Admitting Provider General Appearance: WD/WN, vitals as above, NAD, sitting up in bed, pleasant Head: normocephalic, + extensive bruising surrounding L eye with hematoma over left eyebrow with dressing in place, no active bleeding Eyes: PERRL ENT: external ear and nose normal, oropharynx normal Neck: normal visual inspection Respiratory: normal respiratory effort, diminished breath sounds 2/2 shallow breathing, bibasilar crackles Cardiovascular: irregular rate & rhythm, + murmur, no BLE edema. Vessels: no JVD Chest: normal inspection of chest. TTP R chest wall 2/2 rib fracture, no deformity Abdomen/GI: normal bowel sounds, soft, nontender, no hepatosplenomegaly Extremities/Musculoskeletal: no cyanosis or clubbing, extremities motor strength 5/5 Neurologic: PERRL, EOMI, accommodation nl, no face palsy, no dysarthria, CN's II-XI intact bilaterally and moves all extremities Psychiatric: A+Ox3, requires redirection but then answers appropriately Skin: no rashes, normal color, warm/dry Discharge Exam Gen: WD/WN, elderly, F, sitting up in bed, much more pleasant today, NAD, A&O x3 HEENT: Normocephalic, L periorbital hematoma, no eye involvement, mild conjunctival hemorrhage Left lateral, conjunctivae moist, sclerae anicteric, mucous membranes moist. Lung: Clear to Auscultation bilaterally, no wheezes/rales/rhonchi Heart: IRR/IRR no murmurs, rubs, or gallops Abdomen: Soft, NT, ND +BS x 4 Extremities: No edema Skin: Warm, no rash, negative turgor. Updated Medication List Medication Instructions Recorded Confirmed Type apixaban 5 mg tablet (Eliquis) 5 mg PO BID 11/01/23 12/26/24 History conjugated estrogens 0.625 mg 0.625 mg PO DAILY 11/01/23 12/26/24 History tablet (Premarin) levothyroxine 75 mcg tablet 75 mcg PO DAILY 11/01/23 12/26/24 History lisinopril 20 mg tablet 20 mg PO QAM 11/01/23 12/26/24 History metoprolol succinate 100 mg 100 mg PO BID 11/01/23 12/26/24 History tablet,extended release 24 hr spironolactone 25 mg tablet 12.5 mg PO DAILY 11/01/23 12/26/24 History cetirizine 10 mg tablet 10 mg PO DAILY PRN Allergic 12/26/24 12/26/24 History Symptoms famotidine 20 mg tablet 20 mg PO BID PRN Acid Reflux 12/26/24 12/26/24 History furosemide 20 mg tablet (Lasix) 20 mg PO DAILY PRN edema 12/26/24 12/26/24 History cephalexin 500 mg capsule 500 mg PO BID 5 days #10 caps 12/28/24 Rx Hospital Stay Data Consultations 12/26/24 06:38 ED Decision to Admit Stat Diagnostic Imagining Performed Chest X-Ray 12/26/24 03:54 EXAM: XR chest 1V portable CLINICAL HISTORY: Trauma TECHNIQUE: An X-ray image of the chest is obtained in AP projection. COMPARISON: prior Cr 11/01/2023 FINDINGS: Pulmonary Parenchyma: Lungs are clear bilaterally. No evidence of consolidation, collapse, or focal opacities. No pulmonary nodules are identified. Haziness is seen in the left lower zone, obscuring the left costophrenic angle. Heart and Mediastinum: Mild cardiomegaly ( unchanged ) No mediastinal widening or masses. No hilar or mediastinal lymphadenopathy. Bony Thorax: Bony thorax appears intact without fractures or deformities. Soft Tissues: Soft tissues overlying the chest wall are unremarkable. IMPRESSION: 1. Haziness is seen in the left lower zone, obscuring the left costophrenic angle, likely positional however, clinical and lab correlation is advised to rule out pulmonary infection. 2. No significant interval changes. Electronically signed by Jonathan Langley 12-26-2024 04:[address] 12/26/24 03:54 EXAM: CT lumbar spine w con CLINICAL HISTORY: Trauma TECHNIQUE: CT scan of the lumbar spine was performed following the intravenous administration of iodinated contrast material. Contiguous axial images were obtained from the upper lumbar spine to the sacrum. Coronal and sagittal reformatted images were also reviewed. One of the following dose reduction techniques was utilized for this exam. Automated exposure control, adjustment of the mA and/or kV according to patient size, and use of iterative reconstruction. DLP: 3375.15 mGy.cm COMPARISON: No previous studies are available for comparison. FINDINGS: Vertebrae: Mild scoliosis of the lumbar spine with jovana angle of 15° and convexity towards the left. Sclerotic changes of the endplates of L2-L3 (could indicate bone marrow changes, which may require MRI to do better evaluation). Mild retrolisthesis of L2 over L3. Mild anterolisthesis of L4 over L5. The vertebral bodies are normal in height. Marginal osteophytes are seen. Reduced intervertebral disc spaces seen at multiple levels with vacuum phenomenon. Significantly reduced L2-L3 intervertebral disc space with endplate sclerosis. No evidence of acute fracture or dislocation. Generalized reduced bone density. No signs of lytic or sclerotic lesions. Normal configuration of the posterior elements. Facet Joints: Facet joint arthropathy seen. Neural Foramina: Multilevel diffuse disc bulge is seen causing ventral thecal sac indentation with bilateral neural foraminal narrowing. Paraspinal Soft Tissues: The paraspinal soft tissues are normal in appearance, without evidence of mass or abnormal fluid collection. Post-Contrast Evaluation: No abnormal enhancement is observed in the lumbar spine, surrounding soft tissues, or paraspinal regions. No evidence of epidural abscess or phlegmon. Diffuse atherosclerotic changes of abdominal aorta. Additional Findings: No other significant findings are noted in the visualized soft tissue structures or bony elements. IMPRESSION: 1. No acute fracture seen. 2. Moderate lumbar spondylosis. Osteopenia. 3. Multilevel diffuse disc bulges seen causing ventral thecal sac indentation with bilateral neural foraminal narrowing. MRI lumbar spine is advised if clinically indicated. 4. No significant abnormal post-contrast enhancement. Electronically signed by Jonathan Langley 12-26-2024 06:15 AM Pelvis X-Ray 12/26/24 03:54 EXAM: XR pelvis 1-2V routine CLINICAL HISTORY: Trauma TECHNIQUE: X-ray images of the pelvis were obtained in anteroposterior (AP) projection. COMPARISON: No prior studies available for comparison. FINDINGS: Bone Structure: Pelvic bones, including the iliac wings, ischium, pubis, and sacrum, are normal and intact. No evidence of fractures, dislocations, or significant osseous lesions. Hip Joints: Hip joints are normal with preserved joint spaces. No evidence of hip dislocation, subluxation, or significant degenerative changes. Acetabulum: Acetabular structures appear normal and intact. No signs of acetabular fracture or dysplasia. Symphysis Pubis: Symphysis pubis is normal and intact. No evidence of separation or widening. Sacroiliac Joints: Mild bilateral narrowing, irregularity with end plates sclerosis. Soft Tissues: Visualized soft tissues are normal and unremarkable. No soft tissue swelling, calcifications, or masses. Additional Findings: No other significant abnormalities were noted. IMPRESSION: 1. No evidence of acute fractures or dislocations. 2. Mild bilateral degenerative sacroiliits Disclaimer: A subtle bone abnormality or fracture may not be readily apparent on X-rays, thus clinical correlation and further imaging including follow-up CT, MRI, or follow-up X-rays are advised as needed. Electronically signed by Jonathan Langley 12-26-2024 04:[address] 12/26/24 03:54 EXAM: CT thoracic spine w con CLINICAL HISTORY: trauma TECHNIQUE: Multiple axial images of CT thoracic spine with contrast was submitted in bone and soft tissue window. 93 ml optiray 320 intravenous contrast was administered for post contrast images. One of the following dose reduction techniques were utilized for this exam: Automated exposure control, adjustment of the mA and/or kV according to patient size, and use of iterative reconstruction. DLP: 3375.15 mGy.cm COMPARISON: None. FINDINGS: Vertebrae: Normal alignment of the thoracic vertebrae. No fractures, lytic or sclerotic lesions. Normal bone density without evidence of osteopenia or osteoporosis. Intervertebral Discs: Mild intervertebral decrease spaces with anterior osteophytes formation, indicating chronic degenerative changes. Lower cervical vertebrae show intervertebral degenerative changes with enplates sclerotic changes. No evidence of disc herniation, bulging, or significant degeneration. Spinal Canal and Neural Foramina: The spinal canal is of normal caliber with no evidence of spinal stenosis. Neural foramina are patent bilaterally at all levels. No evidence of nerve root compression. Facet Joints: Normal appearance of the facet joints. No evidence of facet arthropathy or significant degenerative changes. Soft Tissues: Bilateral signs of pulmonary congestion (interstitial thickening, and ground-glass pattern mainly of lower lobes). Normal appearance of the paraspinal soft tissues. No abnormal masses, fluid collections, or signs of inflammation. Vascular Structures: Ascending aorta aneurysmal dilatation (about 46 mm in diameter). Multiple atherosclerotic plaques of the aortic murphy. Normal appearance and enhancement of the thoracic aorta and other major vessels. No evidence of dissection, or significant stenosis. IMPRESSION: 1. No fracture or dislocation. 2. Aneurysmal dilatation of the ascending aorta (about 46 mm). 3. Multilevel intervertebral degenerative changes, mainly in lower thoracic spine and the lower cervical spine. 4. Signs of pulmonary congestion. Electronically signed by Jonathan Langley 12-26-2024 05:58 AM Abdomen/Pelvis CT 12/26/24 03:55 EXAM: CT abd pelvis IV con only CLINICAL HISTORY: Trauma TECHNIQUE: Contiguous axial images were obtained from the level of the diaphragm to the pubic symphysis with intravenous contrast. Coronal and sagittal reconstructions were likewise performed and indicated to increase the sensitivity for detecting clinically relevant pathology. If IV contrast material had not been administered, the likelihood of detecting abnormalities relevant to the patient's condition would have been substantially decreased. CT scan was performed according to ALARA (as low as reasonable achievable). COMPARISON: None. FINDINGS: Cardiomegaly noted. Dilated IVC and hepatic veins with mild hepatic congestion is seen. No focal liver lesions are seen. There is no intra or extrahepatic biliary ductal dilatation. Hepatic vasculature is patent. The gallbladder is present. Well defined cystic lesion of size 3.7 x 2.6 cm is noted cranial to the pancreatic head extending up to the hepatic arleth and undersurface of the left lobe of liver. No fat planes with any of the structure is noted. It appears to be insinuating between the left lobe of the liver and the caudate lobe. Findings likely suggestive of benign cystic lesion. Possible differentials include lymphatic malformation /exophytic hepatic cyst. Correlation with the prior study/follow up is suggested. The spleen, pancreas, and adrenal glands are unremarkable. The kidneys are normal in size and attenuation. There is no hydronephrosis or perinephric fat stranding. No renal calculi or renal masses are identified. The ureters are normal in caliber and no ureteral calculi are seen. The bladder is normal in contour. Pelvic viscera are unremarkable. No focal or diffuse bowel wall thickening or evidence of bowel obstruction is identified. The appendix is visualized in the right lower quadrant and appears within normal limits. Abdominal and pelvic vasculature is patent. No adenopathy or fluid collections are seen. No aggressive appearing osseous lesions are identified. Multiple small uncomplicated sigmoid colonic diverticulosis Diffuse atherosclerotic calcification is noted involving aorta iliac arteries. IMPRESSION: 1. Cardiomegaly noted. 2. Dilated IVC and hepatic veins with mild hepatic congestion is seen. 3. Multiple small uncomplicated sigmoid colonic diverticulosis 4. Well defined cystic lesion of size 3.7 x 2.6 cm is noted cranial to the pancreatic head extending up to the hepatic arleth and undersurface of the left lobe of liver as described. Findings likely suggestive of benign cystic lesion. Possible differentials include lymphatic malformation /exophytic hepatic cyst. Correlation with the prior study/follow up is suggested. 5. NO Trauma related abnormality seen. Electronically signed by Roderick Contreras 12-26-2024 06:[address] 12/26/24 03:55 EXAM: CT cervical spine wo con CLINICAL HISTORY: Trauma TECHNIQUE: CT scan of the cervical spine was performed without the administration of intravenous contrast. Contiguous axial images were obtained from the skull base to the upper thoracic spine. Coronal and sagittal reformatted images were also reviewed. One of the following dose reduction techniques was utilized for this exam. Automated exposure control, adjustment of the mA and/or kV according to patient size, and use of iterative reconstruction. (CTDI: 37.61 mGy, DLP: 3375.15 mGy*cm) COMPARISON: No previous studies are available for comparison. FINDINGS: Straightened cervical lordosis, suggesting muscle spasm. No acute fracture or dislocation. Minimal anterolisthesis of C3 and C7 vertebral bodies. Degenerative changes in the cervical spine as evidenced by marginal osteophytosis. Reduced intervertebral disc spaces at multiple levels of the cervical spine. No vertebral wedging or collapse. C4/C5, C5/C6, and C6-C7 posterior disc osteophyte complexes are seen indenting the thecal sac and encroaching upon corresponding neural exit foramina and exiting nerve roots bilaterally, most evident at C5/C6 level. Degenerative changes at the atlantoaxial articulation. Degenerative changes at multiple facets and uncovertebral joints bilaterally. Reduced bone density. No suspicious sclerotic or lytic bony lesions. Prevertebral and para-vertebral soft tissues are unremarkable. IMPRESSION: 1. No acute fracture or dislocation. 2. Multilevel cervical spondylotic changes. MRI may be recommended for further evaluation. Electronically signed by Jonathan Langley 12-26-2024 05:[address] 12/26/24 03:55 EXAM: CT chest diagnostic w con CLINICAL HISTORY: Trauma TECHNIQUE: Contiguous axial images were obtained from the neck base through the upper abdomen following intravenous administration of contrast material. If IV contrast material had not been administered, the likelihood of detecting abnormalities relevant to the patient's condition would have been substantially decreased. In addition, sagittal and coronal reconstructions were performed. CT scan was performed according to ALARA (as low as reasonable achievable). COMPARISON: None. FINDINGS: Aneurysmal dilatation of ascending aorta with maximum diameter measures about 45 mm. Old linear fracture is noted involving anterior end of right 3rd rib. Old united fracture with callus formation is noted involving left 11th rib. Cardiomegaly noted. Mild bilateral interstitial septal thickening is noted involving bilateral upper and lower lobes, possible congestion/interstitial edema. Multiple calcified as well as non-calcified atheromatous plaques are noted involving visualized aorta. Rest of lungs are clear The central airways are patent. There are no pleural effusions. No pneumothorax is seen. No axillary, hilar, or mediastinal adenopathy is identified. The visualized thyroid is unremarkable. The Rest of aorta, and pulmonary arteries are of normal size and configuration. No pericardial effusion is identified. Imaged portions of the upper abdomen are unremarkable. No aggressive appearing osseous lesions are identified. IMPRESSION: 1. dilatation of ascending aorta with maximum diameter measures about 45 mm. 2. linear fracture is noted involving anterior end of right 3rd rib. 3. Old united fracture is noted involving left 11th rib. 4. Cardiomegaly. 5. Mild bilateral interstitial septal thickening is noted involving bilateral upper and lower lobes, possible congestion/interstitial edema. Electronically signed by Roderick Contreras 12-26-2024 06:[address] 12/26/24 03:55 EXAM: CT head/brain wo con CLINICAL HISTORY: trauma TECHNIQUE: Multiple axial images are obtained from the skull base to the vertex without contrast. CT scan was performed according to ALARA (as low as reasonable achievable). COMPARISON: 11/02/2023 06:54:48 RN TELE[employer] . FINDINGS: There is cerebral atrophy. No evidence of space occupying lesion, hemorrhage, edema, mass effect, midline shift, extra axial collection, or hydrocephalus is noted. Basal cisterns are symmetric and normal in size and configuration. There are scattered periventricular hypodensities as can be seen with chronic microvascular ischemic changes. The salcedo-white matter differentiation is preserved. Visualized paranasal sinuses and mastoid air cells are well aerated. Orbital contents are within normal limits. Bony structures are intact. Rest unchanged. IMPRESSION: 1. No evidence of acute intracranial abnormality is demonstrated. 2. Chronic microvascular ischemic changes.-stable. 3. Cerebral atrophy.-stable. Electronically signed by Roderick Contreras 12-26-2024 05:[address] 12/26/24 03:56 EXAM: CT facial bones wo con CLINICAL HISTORY: Trauma TECHNIQUE: Computed tomography of the orbits/face was performed without intravenous contrast. Contiguous axial images were obtained. Reformatted coronal and sagittal images were also reviewed. CT scan was performed according to ALARA (as low as reasonable achievable). COMPARISON: none. FINDINGS: No acute facial fractures. Left maxillary sinusitis. Rest of paranasal sinuses and mastoid air cells are clear. The globes, optic nerves, extraocular muscles and retro-orbital fat are grossly unremarkable. Reformatted imaging demonstrates intact roof and floor of the orbits. Included portions of the mandible are intact. The included intracranial substances and airway are unremarkable. IMPRESSION: No acute facial fractures. Left maxillary sinusitis. Electronically signed by Roderick Contreras 12-26-2024 05:[address] 12/27/24 10:41 CT head/brain wo con CLINICAL HISTORY: 84 years-old Female with agitation. Acutely altered mental status TECHNIQUE: Multiple axial CT images of the head were obtained without contrast. A dose lowering technique was utilized adhering to the principles of ALARA. CT DOSE: 547.75 mGy.cm COMPARISON: 12/26/2024 FINDINGS: No acute intracranial hemorrhage, midline shift, intracranial mass, hydrocephalus, territorial ischemia or abnormal extra-axial collection. Involutional changes with chronic microvascular ischemic disease. Left temporal lobe encephalomalacia again noted. Unchanged probable chronic lacunar infarct within the kay[place]. Stable right cerebellar calcification. The calvarium is intact. Small left periorbital contusion. The paranasal sinuses, mastoid air cells, and middle ear cavities are clear. IMPRESSION: No acute intracranial abnormality. ACT 112: Negative or not required by law. The above report was generated using voice recognition software. It may contain grammatical, syntax or spelling errors. Electronically signed by: Zhao Mejia M.D. 12/27/2024 12:12 PM Abdomen/Pelvis CT 12/28/24 07:[address] WITHOUT CONTRAST CT DOSE: 1379.8 mGy.cm HISTORY: hemtauria TECHNIQUE: Multiaxial CT images of the abdomen and pelvis were performed without contrast. A dose lowering technique was utilized adhering to the principles of ALARA. COMPARISON STUDY: 12/26/2024 FINDINGS: ABDOMEN: Previously described oval cystic finding between the proximal pancreas and the liver is stable. Liver, gallbladder, spleen, pancreas, and adrenal glands have an unremarkable non-IV contrasted appearance otherwise. Kidneys show no hydronephrosis. No renal or ureteral calculi seen. There is a stable tiny likely cyst lateral left kidney. No gross renal mass seen. There are scattered atherosclerotic calcifications. No abdominal aortic aneurysm. Pelvis: Uterus is absent. No adnexal mass. Urinary bladder is decompressed. There is sigmoid diverticulosis. No acute diverticulitis. No bowel inflammation or obstruction seen. No enlarged adenopathy. No free fluid or free air. There is lumbar degenerative disc disease. There are mild degenerative changes at the hips. IMPRESSION: 1. No acute findings seen. 2. No hydronephrosis or renal calculi seen. 3. Otherwise as described. ACT 112: Negative or not required by law. The above report was generated using voice recognition software. It may contain grammatical, syntax or spelling errors. Electronically signed by: Austin Reeves M.D. 12/28/2024 8:42 AM Pending Results Patient Have Any Pending Studies at Discharge: No Discharge Instructions Given to Patient (Per Discharging Provider) MEDICATION CHANGES: Keflex 500mg by mouth twice daily for additional 5 days. This is your antibiotic for your UTI. Next dose is due in the morning on 12/29/24. It is recommended you take a daily probiotic while taking keflex. This is to protect the good bacteria in your GI tract. Please hold your Eliquis until the blood in your urine resolves. Once this resolves please resume Eliquis. Please continue all other medications. SUMMARY OF TEST RESULTS: You were admitted to the hospital after you sustained a fall. You were found to have a contusion above your left eye, Right third rib fracture and a E. Coli UTI. You are being treated with antibiotics. Regarding your rib fracture - this will heal on its own. You may use tylenol for pain relief. It is important to make sure you are taking frequent deep ben ths to help expand and inflate your lungs. Although this may be painful it will help prevent pneumonia. You had blood in your urine from your UTI. You state that this is normal for you with your infections. I recommend you hold your eliquis until the blood resolves. You may then resume your eliquis. You had an abnormal finding on your CT abdomen and pelvis. A well defined cystic lesion of size 3.7 x 2.6 cm on your pancreas. Findings likely suggestive of benign cystic lesion. It is recommenced you have your primary care provider follow up on this. PENDING TEST RESULTS: None RECOMMENDATIONS FOR FOLLOW-UP: Please follow up with primary care provider as scheduled. Please take antibiotic in its entirety for your urinary tract infection. It is recommended you use a walker to walk to help stabilize yourself and prevent future falls. OTHER INSTRUCTIONS: Seek medical attention if you have: * temperature above 101 * chest pain or trouble breathing * abdominal pain, nausea, vomiting * diarrhea, dark stools or bloody stools * any unanswered questions or concerns Call 911 if symptoms are severe. Please take good care of yourself. It has been a pleasure taking care of you. Please take care of yourself. If you have any questions regarding your recent hospitalization please contact [facility] and request Kali Jurado @ [phone]. Total Time Total Time Spent Total Time Spent (In Minutes): 60 minutes Supervising Physician Co-Signing Physician Notes Attending Addendum: Case reviewed with the advanced practitioner. I have reviewed the advanced practitioner's documentation on the date of service referenced in note, and I agree with, and take responsibility for the plan of care. please refer to her notes for full details patient seen and examined, records reviewed by myself as well diagnoses and plan of care as per advanced practitioner's notes I spent a total of 25 minutes coordinating, documenting, and providing care for this patient, excluding time spent in the performance of separately billed services or time spent by another provider/QHP. Owen Tan MD
[2024-12-28 11:31] VITALS: BP 161/94; PULSE 66; TEMP 97.3; O2SAT 100
--- NOTE | 2024-12-28 18:20 | XCELERA ---
[id number]
== END 2024-12-28 11:48 | disposition home health service (06) | DRG 689 ==
LOC: ED 03:45 → SUATTDRO 07:43 → 2E 07:43 → 2N 12-27 15:47
DX: E22.2 Syndrome of inappropriate secretion of antidiuretic hormone; S09.90XA Unspecified injury of head, initial encounter; I77.810 Thoracic aortic ectasia; N30.01 Acute cystitis with hematuria; I42.9 Cardiomyopathy, unspecified; Z79.890 Hormone replacement therapy; I48.20 Chronic atrial fibrillation, unspecified; Z88.0 Allergy status to penicillin; I08.3 Combined rheumatic disorders of mitral, aortic and tricuspid valves; Z79.01 Long term (current) use of anticoagulants; Z79.899 Other long term (current) drug therapy; G93.41 Metabolic encephalopathy; W01.0XXA Fall on same level from slipping, tripping and stumbling without subsequent striking against object, initial encounter; E03.9 Hypothyroidism, unspecified; T40.2X5A Adverse effect of other opioids, initial encounter; R41.0 Disorientation, unspecified; I10 Essential (primary) hypertension; Z88.2 Allergy status to sulfonamides; R45.1 Restlessness and agitation; K86.89 Other specified diseases of pancreas; Z66 Do not resuscitate; S22.31XA Fracture of one rib, right side, initial encounter for closed fracture; S00.12XA Contusion of left eyelid and periocular area, initial encounter; B96.20 Unspecified Escherichia coli [E. coli] as the cause of diseases classified elsewhere; Z86.73 Personal history of transient ischemic attack (TIA), and cerebral infarction without residual deficits